=== PATIENT | female | born 1950 | race African-American/Black ===

== ENCOUNTER 2016-07-15 15:46 | Emergency (ER) | payer MEDICARE ==
[~2016-07-15] VITALS: Ht 167.6 cm; Wt 130.0 kg
[~2016-07-15 15:46] MED LIST: ALLO100T PO; AMLO5TAB88 PO; ASPI-1035 PO; CLON0.2T PO; CLOP75TA33 PO; CYCL-374 PO; DICL75TA5 PO; DOCU-150 PO; FAMO20TA8 PO; FERR-63 PO; FURO20TA4 PO; GLIP10TA10 PO; HYDR-4134 PO; HYDR25TA PO; METO-296 PO; MORP15TA67 PO; PANT40TA4 PO; PIOG30TA27 PO; PRAV40TA58 PO
[2016-07-15 19:30] LABS: BASOPHILS % 1.2 % (0.0-2.0); EOSINOPHILS % 3.9 % (0.0-5.0); HEMATOCRIT. 35.8 % (36.0-48.0); HEMOGLOBIN. 11.7 g/dL (12.0-16.0); LYMPHOCYTES % 27.1 % (20.0-50.0); MEAN CORPUSCULAR HEMOGLOBIN 30.2 pg (28.0-32.0); MEAN CORPUSCULAR HGB CONC 32.7 g/dL (31.0-37.0); MEAN CORPUSCULAR VOLUME 92.3 fL (81.0-99.0); MEAN PLATELET VOLUME 9.2 fl (7.4-10.4); MONOCYTES % 5.7 % (2.0-8.0); NEUTROPHILS % 62.1 % (40.0-76.0); PLATELET 231 x1000/uL (130-400); RED BLOOD CELL COUNT 3.88 mill/uL (4.2-5.4); RED CELL DISTRIBUTION WIDTH 15.6 % (11.6-14.6); WHITE BLOOD COUNT 8.4 x1000/uL (4.5-11.0)
[2016-07-15 19:35] LABS: CHLORIDE 103 mEq/L (98-107); INDEX HEMOLYSI 1 (1-3); INDEX ICTERIC 1 (1-4); INDEX LIPEMIC 1 (1-3)
[2016-07-15 19:42] LABS: ALANINE AMINOTRANSFERASE 9 IU/L (13-61); ALBUMIN 3.6 g/dL (3.4-5.0); ANION GAP 12; CALCIUM 9.2 mg/dL (8.5-10.1); CARBON DIOXIDE 31 mEq/L (21-32); UREA NITROGEN BLOOD 14 mg/dL (7-21); URIC ACID 5.3 mg/dL (2.6-7.2)
[2016-07-15 19:44] LABS: eGFR 55 mL/min (>60)
== END 2016-07-15 20:18 | disposition home or self-care (01) ==
LOC: ER 15:47
DX: M25.532 Pain in left wrist (principal); I10 Essential (primary) hypertension; M10.9 Gout, unspecified; E11.9 Type 2 diabetes mellitus without complications; M19.90 Unspecified osteoarthritis, unspecified site; Z90.49 Acquired absence of other specified parts of digestive tract; Z90.710 Acquired absence of both cervix and uterus; Z90.89 Acquired absence of other organs; Z98.890 Other specified postprocedural states; Z79.82 Long term (current) use of aspirin; Z79.899 Other long term (current) drug therapy; Z88.8 Allergy status to other drugs, medicaments and biological substances
CPT/HCPCS: 36415; 73090; 73130; 80053; 84550; 85025; 99285

== ENCOUNTER 2016-10-29 15:17 | Inpatient (IN) | payer MEDICARE, MEDICAID ==
[~2016-10-29] VITALS: Ht 167.6 cm; Wt 127.5 kg
[~2016-10-29 15:17] MED LIST changes: -ASPI-1035 PO; +ASPI-1158 PO; -CYCL-374 PO; +CYCL10TA7 PO
[2016-10-29] MEDS ORDERED: FUROSEMIDE 40MG/4ML VIAL IV ONE (16:00)
[2016-10-29 16:22] LABS: BASOPHILS % 0.6 % (0.0-2.0); EOSINOPHILS % 5.5 % (0.0-5.0); HEMATOCRIT. 32.8 % (36.0-48.0); HEMOGLOBIN. 10.8 g/dL (12.0-16.0); LYMPHOCYTES % 29.5 % (20.0-50.0); MEAN CORPUSCULAR HEMOGLOBIN 30.2 pg (28.0-32.0); MEAN CORPUSCULAR VOLUME 91.7 fL (81.0-99.0); MEAN PLATELET VOLUME 9.7 fl (7.4-10.4); MONOCYTES % 6.4 % (2.0-8.0); PLATELET 209 x1000/uL (130-400); RED BLOOD CELL COUNT 3.58 mill/uL (4.2-5.4); RED CELL DISTRIBUTION WIDTH 15.5 % (11.6-14.6)
[2016-10-29 16:24] LABS: CHLORIDE 104 mEq/L (98-107)
[2016-10-29 16:25] LABS: PROTHROMBIN TIME 10.6 sec
[2016-10-29 16:29] LABS: CARBON DIOXIDE 32 mEq/L (21-32)
[2016-10-29 16:36] LABS: TROPONIN I < 0.02 ng/mL (0.00-0.04)
[2016-10-29] MEDS ORDERED: MORPHINE SULFATE 4 MG/ML CPJ (NOT FOR IM USE) IV ONE (17:45)
[2016-10-29] MEDS ORDERED: DEXTROSE 50% WATER 50ML SYRINGE IV PRN (19:45)
[2016-10-29] MEDS ORDERED: DIPHENHYDRAMINE 50MG/ML VIAL IV PRN (19:45)
[2016-10-29] MEDS ORDERED: IPRATROPIUM/ALBUTEROL 0.5-3(2.5)MG/3ML NEB INH PRN (19:45)
[2016-10-29] MEDS ORDERED: MAGNESIUM/ALUMINUM HYDROXIDE/SIMETHICONE 30ML UDC PO PRN (19:45)
[2016-10-29] MEDS ORDERED: ACETAMINOPHEN 325MG TABLET PO PRN (19:45)
[2016-10-29] MEDS ORDERED: CLONIDINE 0.1MG TABLET PO PRN (19:45)
[2016-10-29] MEDS ORDERED: ONDANSETRON HCL 4MG/2ML VIAL IV PRN (19:45)
[2016-10-29] MEDS ORDERED: GUAIFENESIN 200MG/10ML SUGAR FREE UDC PO PRN (19:45)
[2016-10-29] MEDS: ENOXAPARIN 40MG/0.4ML SYR SUBCUT SCH (21:00)
[2016-10-29] MEDS: BLOOD SUGAR DIAGNOSTIC STRIP TEST SCH (21:43)
[2016-10-29] MEDS: HYDRALAZINE HCL 50MG TABLET PO SCH (21:51)
[2016-10-29] MEDS: SODIUM CHLORIDE 0.9% INJ 3ML FLUSH IVF SCH (21:53)
[2016-10-29] MEDS: INSULIN LISPRO 100 UNITS/ML SUBCUT SCH (21:54)
[2016-10-29 22:00] VITALS: BP 169/86
[2016-10-29] MEDS: DICLOFENAC SODIUM 50MG EC TABLET PO PRN (23:54)
[2016-10-30] VITALS: BP 133/86
[2016-10-30] MEDS ORDERED: REGADENOSON 0.4 MG/5 ML IV NR (02:45)
[2016-10-30 04:00] VITALS: BP 116/62
[2016-10-30] MEDS: HYDRALAZINE HCL 50MG TABLET PO SCH ×3 (05:12→21:23)
[2016-10-30] MEDS: SODIUM CHLORIDE 0.9% INJ 3ML FLUSH IVF SCH ×3 (05:12→21:23)
[2016-10-30] MEDS: BLOOD SUGAR DIAGNOSTIC STRIP TEST SCH ×4 (06:36→21:24)
[2016-10-30] MEDS: INSULIN LISPRO 100 UNITS/ML SUBCUT SCH ×4 (07:50→21:27)
[2016-10-30 08:00] VITALS: BP 149/76
[2016-10-30] MEDS ORDERED: REGADENOSON 0.4 MG/5 ML IV ONE (08:11)
[2016-10-30] MEDS ORDERED: FUROSEMIDE 40MG/4ML VIAL IVP SCH (09:00)
[2016-10-30] MEDS: ENOXAPARIN 40MG/0.4ML SYR SUBCUT SCH (09:00)
[2016-10-30] MEDS: GLIPIZIDE 10MG TABLET PO SCH ×2 (09:29→17:55)
[2016-10-30] MEDS: DOCUSATE SODIUM 250MG CAPSULE PO SCH ×2 (09:30→17:55)
[2016-10-30] MEDS: FERROUS SULFATE 325MG TABLET PO SCH ×3 (09:31→17:55)
[2016-10-30 12:00] VITALS: BP 163/91
[2016-10-30] MEDS ORDERED: IBUPROFEN 600MG TABLET PO PRN (12:00)
[2016-10-30] MEDS: DICLOFENAC SODIUM 50MG EC TABLET PO PRN (12:26)
[2016-10-30 16:00] VITALS: BP 156/88
[2016-10-30 20:00] VITALS: BP 112/67
[2016-10-30] MEDS ORDERED: ENOXAPARIN 30MG/0.3ML SYR SUBCUT SCH (21:00)
[2016-10-30] MEDS ORDERED: ZOLPIDEM TARTRATE 5MG TABLET PO PRN (22:00)
[2016-10-31] VITALS: BP 142/82
[2016-10-31] MEDS: DICLOFENAC SODIUM 50MG EC TABLET PO PRN (03:59)
[2016-10-31 04:00] VITALS: BP 127/76
[2016-10-31] MEDS: HYDRALAZINE HCL 50MG TABLET PO SCH ×2 (06:26→13:23)
[2016-10-31] MEDS: BLOOD SUGAR DIAGNOSTIC STRIP TEST SCH ×2 (06:26→12:23)
[2016-10-31] MEDS: SODIUM CHLORIDE 0.9% INJ 3ML FLUSH IVF SCH (06:27)
[2016-10-31] MEDS: INSULIN LISPRO 100 UNITS/ML SUBCUT SCH ×2 (07:50→12:40)
[2016-10-31 08:00] VITALS: BP 124/93
[2016-10-31] MEDS: GLIPIZIDE 10MG TABLET PO SCH (08:31)
[2016-10-31] MEDS: DOCUSATE SODIUM 250MG CAPSULE PO SCH (08:31)
[2016-10-31] MEDS: FERROUS SULFATE 325MG TABLET PO SCH ×2 (08:31→13:23)
[2016-10-31 12:00] VITALS: BP 115/85
[2016-10-31 12:41] VITALS: BP 154/82
== END 2016-10-31 14:00 | disposition home or self-care (01) | DRG 291 ==
LOC: ER 15:42 → EDBEDREQ 18:47 → 6WST 19:43 → ENRESERV 19:49 → 6WST 20:50
PROVIDERS: ADMIT Internal Medicine; ATTEND Internal Medicine
DX: I11.0 Hypertensive heart disease with heart failure (principal); J96.00 Acute respiratory failure, unspecified whether with hypoxia or hypercapnia; Z68.42 Body mass index [BMI] 45.0-49.9, adult; I50.33 Acute on chronic diastolic (congestive) heart failure; E78.5 Hyperlipidemia, unspecified; E11.9 Type 2 diabetes mellitus without complications; E78.00 Pure hypercholesterolemia, unspecified; E66.01 Morbid (severe) obesity due to excess calories; Z79.02 Long term (current) use of antithrombotics/antiplatelets; Z79.82 Long term (current) use of aspirin; Z79.899 Other long term (current) drug therapy; Z88.8 Allergy status to other drugs, medicaments and biological substances; Z90.49 Acquired absence of other specified parts of digestive tract; Z90.710 Acquired absence of both cervix and uterus; Z72.89 Other problems related to lifestyle; Z86.73 Personal history of transient ischemic attack (TIA), and cerebral infarction without residual deficits; Z82.49 Family history of ischemic heart disease and other diseases of the circulatory system
CPT/HCPCS: 36415; 71010; 78452; 80048; 80053; 82962; 83036; 83880; 84484; 85025; 85610; 93005; 93306; 96374; 96375; 97162; 99285; A9500; J1200; J1650; J1815; J1940; J2270; J2785

== ENCOUNTER 2017-11-19 12:16 | Inpatient (IN) | payer MEDICARE, MEDICAID ==
[~2017-11-19] VITALS: Ht 167.6 cm; Wt 127.0 kg
[~2017-11-19 12:16] MED LIST changes: -DOCU-150 PO; -METO-296 PO; +METO-396 PO
[2017-11-19 13:18] LABS: PROTHROMBIN TIME 10.7 sec (9.4-11.6)
[2017-11-19 13:19] LABS: CHLORIDE 101 mEq/L (98-107)
[2017-11-19 13:20] LABS: BASOPHILS % 0.4 % (0.0-2.0); EOSINOPHILS % 4.2 % (0.0-5.0); HEMATOCRIT. 35.2 % (36.0-48.0); HEMOGLOBIN. 11.8 g/dL (12.0-16.0); LYMPHOCYTES % 33.8 % (20.0-50.0); MEAN CORPUSCULAR HEMOGLOBIN 31.2 pg (28.0-32.0); MEAN CORPUSCULAR VOLUME 93.3 fL (81.0-99.0); MEAN PLATELET VOLUME 9.9 fl (7.4-10.4); MONOCYTES % 5.9 % (2.0-8.0); NEUTROPHILS % 55.7 % (40.0-76.0); PLATELET 234 x1000/uL (130-400); RED BLOOD CELL COUNT 3.78 mill/uL (4.2-5.4); RED CELL DISTRIBUTION WIDTH 15.5 % (11.6-14.6)
[2017-11-19 13:25] LABS: ETHANOL BLOOD 230 mg/dL
[2017-11-19 13:27] LABS: LDL CHOLESTEROL 71 mg/dL (5-100)
[2017-11-19 13:37] LABS: AMMONIA 44 uMol/L (<32)
[2017-11-19 15:49] LABS: HEPATITIS B SURFACE ANTIGEN NEGATIVE
[2017-11-19 16:17] LABS: HEPATITIS B CORE AB IGM NEGATIVE
[2017-11-19 16:19] LABS: HEPATITIS A AB IGM NEGATIVE (NEGATIVE)
[2017-11-19] MEDS ORDERED: GUAIFENESIN 200MG/10ML SUGAR FREE UDC PO PRN (18:00)
[2017-11-19] MEDS ORDERED: ACETAMINOPHEN 325MG TABLET PO PRN (18:00)
[2017-11-19] MEDS ORDERED: MAGNESIUM/ALUMINUM HYDROXIDE/SIMETHICONE 30ML UDC PO PRN (18:00)
[2017-11-19] MEDS ORDERED: HYDROCODONE/ACETAMINOPHEN 5/325MG TABLET PO PRN (18:00)
[2017-11-19] MEDS ORDERED: CLONIDINE 0.1MG TABLET PO PRN (18:00)
[2017-11-19] MEDS ORDERED: NA PHOS,M-B/NA PHOS,DI-BA ENEMA 118ML PR PRN (18:00)
[2017-11-19] MEDS ORDERED: ACETAMINOPHEN 650MG/20.3ML UDC GT PRN (18:00)
[2017-11-19] MEDS ORDERED: ACETAMINOPHEN 650MG SUPP PR PRN (18:00)
[2017-11-19] MEDS ORDERED: DOCUSATE SODIUM 100MG CAPSULE PO PRN (18:00)
[2017-11-19] MEDS ORDERED: DIPHENHYDRAMINE 50MG/ML VIAL IV PRN (18:00)
[2017-11-19] MEDS ORDERED: IPRATROPIUM/ALBUTEROL 0.5-3(2.5)MG/3ML NEB INH PRN (18:00)
[2017-11-19] MEDS: HYDROCODONE/ACETAMINOPHEN 10/325MG TABLET PO PRN (19:11)
[2017-11-19 19:13] LABS: CLARITY URINE CLOUDY (CLEAR); COLOR URINE YELLOW (YELLOW); KETONES URINE NEGATIVE (NEGATIVE); LEUKOCYTE ESTERASE URINE TRACE (NEGATIVE); NITRITE URINE NEGATIVE (NEGATIVE); OCCULT BLOOD URINE NEGATIVE (NEGATIVE); PH URINE 5.5 (4.5-8.0); PROTEIN URINE 2+ (NEGATIVE); SPECIFIC GRAVITY URINE 1.011 (1.005-1.030); UROBILINOGEN URINE 0.2 E.U./dL (0.2-1.0)
[2017-11-19 19:31] LABS: *AMPHETAMINES SCREEN URINE NEGATIVE (NEGATIVE); *BARBITURATES SCREEN URINE NEGATIVE (NEGATIVE)
[2017-11-19 19:32] LABS: *BENZODIAZEPINES SCREEN URINE NEGATIVE (NEGATIVE); *COCAINE SCREEN URINE NEGATIVE (NEGATIVE); CANNABINOID URINE SCREEN NEGATIVE (NEGATIVE); METHADONE URINE SCREEN NEGATIVE (NEGATIVE); OPIATES URINE SCREEN NEGATIVE (NEGATIVE); PHENCYCLIDINE URINE SCREEN NEGATIVE (NEGATIVE)
[2017-11-19 20:50] VITALS: BP 149/76
[2017-11-19] MEDS: SODIUM CHLORIDE 0.9% INJ 3ML FLUSH IVF SCH (22:00)
[2017-11-19 23:00] VITALS: BP 149/76
[2017-11-20] MEDS: IPRATROPIUM/ALBUTEROL 0.5-3(2.5)MG/3ML NEB INH SCH ×4 (00:43→22:10)
[2017-11-20] MEDS: HYDROCODONE/ACETAMINOPHEN 10/325MG TABLET PO PRN ×2 (00:48→22:36)
[2017-11-20] MEDS ORDERED: CEFTRIAXONE 1 G PREMIX 50 ML IV SCH (01:00)
[2017-11-20 01:30] LABS: CREATINE KINASE 99 IU/L (26-192)
[2017-11-20 01:31] LABS: CREATINE KINASE MB FRACTION 0.8 ng/mL (0.5-3.6)
[2017-11-20] MEDS ORDERED: AZITHROMYCIN 500 MG in DEXT 5% WATER 250 ML IV SCH (02:00)
[2017-11-20 04:15] VITALS: BP 157/78
[2017-11-20] MEDS: ONDANSETRON HCL 4MG/2ML VIAL IV PRN (05:07)
[2017-11-20 05:53] LABS: BASOPHILS % 0.5 % (0.0-2.0); EOSINOPHILS % 3.8 % (0.0-5.0); LYMPHOCYTES % 38.8 % (20.0-50.0); MEAN CORPUSCULAR VOLUME 93.2 fL (81.0-99.0); MEAN PLATELET VOLUME 10.2 fl (7.4-10.4); MONOCYTES % 7.8 % (2.0-8.0); NEUTROPHILS % 49.1 % (40.0-76.0); PLATELET 217 x1000/uL (130-400); RED BLOOD CELL COUNT 3.54 mill/uL (4.2-5.4); RED CELL DISTRIBUTION WIDTH 15.4 % (11.6-14.6)
[2017-11-20] MEDS ORDERED: DEXTROSE 50% WATER 50ML SYRINGE IV PRN (06:15)
[2017-11-20] MEDS: BLOOD SUGAR DIAGNOSTIC STRIP TEST SCH ×4 (06:36→20:11)
[2017-11-20] MEDS: SODIUM CHLORIDE 0.9% INJ 3ML FLUSH IVF SCH ×3 (06:36→22:00)
[2017-11-20 06:42] LABS: CHLORIDE 102 mEq/L (98-107)
[2017-11-20 07:29] LABS: LDL CHOLESTEROL 57 mg/dL (5-100)
[2017-11-20 07:30] LABS: CREATINE KINASE 96 IU/L (26-192)
[2017-11-20 07:32] LABS: HDL CHOLESTEROL 32 mg/dL (40-59)
[2017-11-20 07:36] LABS: CREATINE KINASE MB FRACTION < 0.5 ng/mL (0.5-3.6)
[2017-11-20 08:00] VITALS: BP 156/71
[2017-11-20] MEDS: INSULIN LISPRO 100 UNITS/ML SUBCUT SCH ×4 (08:10→20:12)
[2017-11-20] MEDS: ENOXAPARIN 40MG/0.4ML SYR SUBCUT SCH ×2 (09:00→20:13)
[2017-11-20] MEDS ORDERED: DIATR MEGLU/DIATRIZOATE SOLN 30ML ONE (09:02)
[2017-11-20] MEDS ORDERED: FAMOTIDINE 20MG/2ML VIAL IV ONE (11:00)
[2017-11-20 12:00] VITALS: BP 161/68
[2017-11-20] MEDS ORDERED: POTASSIUM CHLORIDE 20MEQ TABLET SR PO NR (13:00)
[2017-11-20] MEDS: FAMOTIDINE 20MG/2ML VIAL IV SCH (13:44)
[2017-11-20] MEDS: METOCLOPRAMIDE HCL 10MG/2ML VIAL IV SCH ×3 (13:44→23:57)
[2017-11-20 16:00] VITALS: BP 149/67
[2017-11-20] MEDS: FUROSEMIDE 40MG/4ML VIAL IVP SCH (18:01)
[2017-11-20 20:09] VITALS: BP 153/53
[2017-11-20] MEDS: GUAIFENESIN 600MG ER TABLET PO SCH (20:11)
[2017-11-20 23:59] VITALS: BP 158/49
[2017-11-21] MEDS ORDERED: CEFTRIAXONE 1 G PREMIX 50 ML IV SCH (02:00)
[2017-11-21] MEDS: IPRATROPIUM/ALBUTEROL 0.5-3(2.5)MG/3ML NEB INH SCH ×3 (02:40→14:47)
[2017-11-21] MEDS ORDERED: AZITHROMYCIN 500 MG in DEXT 5% WATER 250 ML IV SCH (03:00)
[2017-11-21 04:00] VITALS: BP 123/54
[2017-11-21] MEDS: SODIUM CHLORIDE 0.9% INJ 3ML FLUSH IVF SCH (06:00)
[2017-11-21] MEDS: METOCLOPRAMIDE HCL 10MG/2ML VIAL IV SCH ×2 (06:08→12:05)
[2017-11-21 06:55] LABS: BASOPHILS % 0.6 % (0.0-2.0); EOSINOPHILS % 2.8 % (0.0-5.0); HEMATOCRIT. 35.8 % (36.0-48.0); HEMOGLOBIN. 11.5 g/dL (12.0-16.0); LYMPHOCYTES % 27.5 % (20.0-50.0); MEAN CORPUSCULAR HEMOGLOBIN 30.4 pg (28.0-32.0); MEAN CORPUSCULAR VOLUME 94.5 fL (81.0-99.0); MEAN PLATELET VOLUME 10.1 fl (7.4-10.4); MONOCYTES % 8.1 % (2.0-8.0); PLATELET 209 x1000/uL (130-400); RED BLOOD CELL COUNT 3.79 mill/uL (4.2-5.4); RED CELL DISTRIBUTION WIDTH 15.3 % (11.6-14.6)
[2017-11-21] MEDS: BLOOD SUGAR DIAGNOSTIC STRIP TEST SCH ×2 (07:46→12:05)
[2017-11-21] MEDS: FAMOTIDINE 20MG/2ML VIAL IV SCH (07:48)
[2017-11-21] MEDS: FUROSEMIDE 40MG/4ML VIAL IVP SCH (07:48)
[2017-11-21] MEDS: INSULIN LISPRO 100 UNITS/ML SUBCUT SCH ×2 (07:48→12:08)
[2017-11-21] MEDS: GUAIFENESIN 600MG ER TABLET PO SCH (07:49)
[2017-11-21] MEDS: ENOXAPARIN 40MG/0.4ML SYR SUBCUT SCH (07:49)
[2017-11-21 08:00] VITALS: BP 157/54
[2017-11-21] MEDS: HYDROCODONE/ACETAMINOPHEN 10/325MG TABLET PO PRN (10:34)
[2017-11-21 12:00] VITALS: BP 157/51
[2017-11-21] MEDS ORDERED: POTASSIUM CHLORIDE 20MEQ TABLET SR PO NR (14:00)
[2017-11-21] MEDS: ONDANSETRON HCL 4MG/2ML VIAL IV PRN (14:37)
[2017-11-21 15:16] VITALS: BP 157/51
[2017-11-22] MEDS ORDERED: CITA10SO PO (11:02)
[2017-11-22] MEDS ORDERED: DOCU250C69 PO (11:02)
[2017-11-22] MEDS ORDERED: ATOR40TA70 MT (11:02)
[2017-11-22] MEDS ORDERED: GLIP10TA10 MT (11:02)
[2017-11-22] MEDS ORDERED: PANT40TA4 PO (12:28)
== END 2017-11-21 16:35 | disposition home or self-care (01) | DRG 291 ==
LOC: ER 12:16 → 7WST 16:43 → ENRESERV 21:00
PROVIDERS: ADMIT Family Medicine; ATTEND Family Medicine
DX: I11.0 Hypertensive heart disease with heart failure (principal); J18.1 Lobar pneumonia, unspecified organism; G92 Toxic encephalopathy; J96.00 Acute respiratory failure, unspecified whether with hypoxia or hypercapnia; N17.0 Acute kidney failure with tubular necrosis; Z68.42 Body mass index [BMI] 45.0-49.9, adult; D63.8 Anemia in other chronic diseases classified elsewhere; E66.01 Morbid (severe) obesity due to excess calories; E78.00 Pure hypercholesterolemia, unspecified; E78.1 Pure hyperglyceridemia; E78.5 Hyperlipidemia, unspecified; E86.0 Dehydration; E87.6 Hypokalemia; F10.129 Alcohol abuse with intoxication, unspecified; I50.43 Acute on chronic combined systolic (congestive) and diastolic (congestive) heart failure; G31.2 Degeneration of nervous system due to alcohol; I48.91 Unspecified atrial fibrillation; M10.9 Gout, unspecified; E11.65 Type 2 diabetes mellitus with hyperglycemia; M19.90 Unspecified osteoarthritis, unspecified site; Z80.0 Family history of malignant neoplasm of digestive organs; Z86.73 Personal history of transient ischemic attack (TIA), and cerebral infarction without residual deficits; Z79.899 Other long term (current) drug therapy; Z90.49 Acquired absence of other specified parts of digestive tract; Z90.710 Acquired absence of both cervix and uterus; Z79.01 Long term (current) use of anticoagulants; Z88.8 Allergy status to other drugs, medicaments and biological substances
CPT/HCPCS: 36415; 70450; 71045; 74176; 80048; 80053; 80061; 80305; 81003; 82140; 82550; 82553; 82962; 83036; 83605; 83721; 83735; 84484; 85025; 85610; 86705; 86709; 86803; 87040; 87086; 87340; 93005; 97162; 99285; G0482; J0456; J0696; J1650; J1815; J1940; J2405; J2765; J3490; J7050; J7060; J7620; Q9963

== ENCOUNTER 2017-11-21 19:41 | Inpatient (IN) | payer MEDICARE, MEDICAID ==
[~2017-11-21] VITALS: Ht 170.2 cm; Wt 134.3 kg
[~2017-11-21 19:41] MED LIST changes: -ASPI-1158 PO; -FAMO20TA8 PO
[2017-11-21] MEDS ORDERED: DILTIAZEM HCL 5MG/ML 5ML VIAL IV ONE ×2 (21:15→23:15)
[2017-11-21] MEDS ORDERED: SODIUM CHLORIDE 0.9% 1,000 ML IV ONE (22:00)
[2017-11-21 22:03] LABS: BASOPHILS % 0.7 % (0.0-2.0); HEMATOCRIT. 35.7 % (36.0-48.0); HEMOGLOBIN. 11.8 g/dL (12.0-16.0); LYMPHOCYTES % 17.2 % (20.0-50.0); MEAN CORPUSCULAR HEMOGLOBIN 30.8 pg (28.0-32.0); MEAN CORPUSCULAR VOLUME 93.4 fL (81.0-99.0); MEAN PLATELET VOLUME 10.1 fl (7.4-10.4); MONOCYTES % 8.9 % (2.0-8.0); NEUTROPHILS % 72.2 % (40.0-76.0); PLATELET 230 x1000/uL (130-400); RED BLOOD CELL COUNT 3.83 mill/uL (4.2-5.4); RED CELL DISTRIBUTION WIDTH 15.3 % (11.6-14.6)
[2017-11-21 22:10] LABS: CHLORIDE 98 mEq/L (98-107)
[2017-11-21 22:12] LABS: INR 1.1; PROTHROMBIN TIME 11.3 sec (9.4-11.6)
[2017-11-21] MEDS ORDERED: AZITHROMYCIN 500 MG in DEXT 5% WATER 250 ML IV ONE (23:15)
[2017-11-21] MEDS ORDERED: CEFTRIAXONE 1 G PREMIX 50 ML IV ONE (23:15)
[2017-11-21] MEDS ORDERED: DILTIAZEM HCL 125 MG in DEXT 5% WATER 100 ML IV ONE (23:15)
[2017-11-21] MEDS ORDERED: DILTIAZEM HCL 125 MG in DEXT 5% WATER 100 ML IV NR (23:19)
[2017-11-22] VITALS (9 sets, daily range): BP systolic 134–190; BP diastolic 51–97
[2017-11-22 01:48] LABS: CLARITY URINE CLEAR (CLEAR); COLOR URINE DARK YELLOW (YELLOW); KETONES URINE TRACE (NEGATIVE); LEUKOCYTE ESTERASE URINE TRACE (NEGATIVE); NITRITE URINE NEGATIVE (NEGATIVE); OCCULT BLOOD URINE TRACE (NEGATIVE); PH URINE 5.5 (4.5-8.0); PROTEIN URINE 4+ (NEGATIVE); SPECIFIC GRAVITY URINE 1.025 (1.005-1.030); UROBILINOGEN URINE 0.2 E.U./dL (0.2-1.0)
[2017-11-22] MEDS ORDERED: DEXTROSE 50% WATER 50ML SYRINGE IV PRN (10:45)
[2017-11-22] MEDS ORDERED: CLONIDINE 0.1MG TABLET PO PRN (10:45)
[2017-11-22] MEDS ORDERED: GLIP10TA10 MT (11:02)
[2017-11-22] MEDS ORDERED: CITA10SO PO (11:02)
[2017-11-22] MEDS ORDERED: DOCU250C69 PO (11:02)
[2017-11-22] MEDS ORDERED: ATOR40TA70 MT (11:02)
[2017-11-22] MEDS: CLOPIDOGREL 75MG TABLET PO SCH (12:16)
[2017-11-22] MEDS: FUROSEMIDE 40MG TABLET PO SCH (12:16)
[2017-11-22] MEDS: APIXABAN 5 MG TABLET PO SCH ×2 (12:17→16:33)
[2017-11-22] MEDS: BLOOD SUGAR DIAGNOSTIC STRIP TEST SCH ×3 (12:18→21:22)
[2017-11-22] MEDS: FERROUS SULFATE 325MG TABLET PO SCH ×2 (12:19→16:33)
[2017-11-22] MEDS: AMLODIPINE 10MG TABLET PO SCH (12:23)
[2017-11-22] MEDS: INSULIN LISPRO 100 UNITS/ML SUBCUT SCH ×4 (12:23→21:22)
[2017-11-22] MEDS ORDERED: PANT40TA4 PO (12:28)
[2017-11-22] MEDS: HYDRALAZINE HCL 50MG TABLET PO SCH ×2 (16:33→21:23)
[2017-11-22] MEDS: ALLOPURINOL 100 MG TABLET PO SCH (16:33)
[2017-11-22 17:48] LABS: T4 FREE 1.15 ng/dL (0.76-1.46)
[2017-11-22 17:49] LABS: CREATINE KINASE MB FRACTION 1.2 ng/mL (0.5-3.6)
[2017-11-22] MEDS: DICLOFENAC SODIUM 50MG EC TABLET PO PRN (18:06)
[2017-11-22] MEDS: CLONIDINE 0.2MG TABLET PO PRN (18:07)
[2017-11-22] MEDS: ATORVASTATIN CALCIUM 40MG TABLET PO SCH (21:23)
[2017-11-22] MEDS: METOPROLOL TARTRATE 50MG TABLET PO SCH (21:23)
[2017-11-23] VITALS (11 sets, daily range): BP systolic 120–168; BP diastolic 63–92
[2017-11-23] MEDS: HYDRALAZINE HCL 50MG TABLET PO SCH ×3 (05:37→21:50)
[2017-11-23 06:57] LABS: BASOPHILS % 0.7 % (0.0-2.0); EOSINOPHILS % 7.9 % (0.0-5.0); HEMATOCRIT. 32.2 % (36.0-48.0); HEMOGLOBIN. 10.8 g/dL (12.0-16.0); LYMPHOCYTES % 31.4 % (20.0-50.0); MEAN CORPUSCULAR HEMOGLOBIN 31.5 pg (28.0-32.0); MEAN PLATELET VOLUME 10.2 fl (7.4-10.4); MONOCYTES % 9.3 % (2.0-8.0); NEUTROPHILS % 50.7 % (40.0-76.0); PLATELET 201 x1000/uL (130-400); RED BLOOD CELL COUNT 3.43 mill/uL (4.2-5.4)
[2017-11-23] MEDS: BLOOD SUGAR DIAGNOSTIC STRIP TEST SCH ×4 (07:35→21:13)
[2017-11-23 08:00] LABS: CHLORIDE 100 mEq/L (98-107)
[2017-11-23] MEDS: METOPROLOL TARTRATE 50MG TABLET PO SCH ×2 (08:01→21:48)
[2017-11-23] MEDS: APIXABAN 5 MG TABLET PO SCH ×2 (08:01→16:28)
[2017-11-23] MEDS: CLOPIDOGREL 75MG TABLET PO SCH (08:01)
[2017-11-23] MEDS: ALLOPURINOL 100 MG TABLET PO SCH ×2 (08:01→16:28)
[2017-11-23] MEDS: FUROSEMIDE 40MG TABLET PO SCH (08:01)
[2017-11-23] MEDS: PANTOPRAZOLE 40MG DR TABLET PO SCH (08:01)
[2017-11-23] MEDS: FERROUS SULFATE 325MG TABLET PO SCH ×3 (08:02→17:43)
[2017-11-23] MEDS: AMLODIPINE 10MG TABLET PO SCH (08:02)
[2017-11-23] MEDS: INSULIN LISPRO 100 UNITS/ML SUBCUT SCH ×4 (08:04→21:56)
[2017-11-23 08:14] LABS: CREATINE KINASE 210 IU/L (26-192)
[2017-11-23] MEDS ORDERED: AMLODIPINE 10MG TABLET PO SCH (09:00)
[2017-11-23] MEDS: DICLOFENAC SODIUM 50MG EC TABLET PO PRN (11:38)
[2017-11-23] MEDS: BENZONATATE 100MG CAPSULE PO PRN (11:38)
[2017-11-23] MEDS: INSULIN GLARGINE UD 100 UNITS/ML SYR SUBCUT SCH (11:39)
[2017-11-23] MEDS: CLONIDINE 0.2MG TABLET PO PRN (17:43)
[2017-11-23] MEDS: ATORVASTATIN CALCIUM 40MG TABLET PO SCH (21:48)
[2017-11-24] VITALS (12 sets, daily range): BP systolic 116–179; BP diastolic 50–99
[2017-11-24] MEDS: DICLOFENAC SODIUM 50MG EC TABLET PO PRN (06:41)
[2017-11-24] MEDS: HYDRALAZINE HCL 50MG TABLET PO SCH ×3 (06:42→21:04)
[2017-11-24] MEDS: BLOOD SUGAR DIAGNOSTIC STRIP TEST SCH ×4 (07:35→21:00)
[2017-11-24] MEDS: APIXABAN 5 MG TABLET PO SCH ×2 (08:12→17:35)
[2017-11-24] MEDS: AMLODIPINE 10MG TABLET PO SCH (08:13)
[2017-11-24] MEDS: PANTOPRAZOLE 40MG DR TABLET PO SCH (08:13)
[2017-11-24] MEDS: FUROSEMIDE 40MG TABLET PO SCH (08:13)
[2017-11-24] MEDS: CLOPIDOGREL 75MG TABLET PO SCH (08:13)
[2017-11-24] MEDS: FERROUS SULFATE 325MG TABLET PO SCH ×3 (08:13→17:35)
[2017-11-24] MEDS: ALLOPURINOL 100 MG TABLET PO SCH ×2 (08:13→17:35)
[2017-11-24] MEDS: METOPROLOL TARTRATE 50MG TABLET PO SCH ×2 (08:13→20:37)
[2017-11-24] MEDS: INSULIN LISPRO 100 UNITS/ML SUBCUT SCH ×4 (08:14→21:03)
[2017-11-24] MEDS: INSULIN GLARGINE UD 100 UNITS/ML SYR SUBCUT SCH (09:40)
[2017-11-24] MEDS ORDERED: APIX5TAB PO (11:10)
[2017-11-24] MEDS: CLONIDINE 0.2MG TABLET PO PRN (11:13)
[2017-11-24] MEDS: BENZONATATE 100MG CAPSULE PO PRN (11:13)
[2017-11-24 13:11] LABS: HEMATOCRIT 36.7 % (36.0-48.0); HEMOGLOBIN 11.8 g/dL (12.0-16.0); MEAN CORPUSCULAR HEMOGLOBIN 30.7 pg (28.0-32.0); MEAN CORPUSCULAR VOLUME 95.1 fL (81.0-99.0); PLATELET 247 x1000/uL (130-400); RED BLOOD CELL COUNT 3.86 mill/uL (4.2-5.4); RED CELL DISTRIBUTION WIDTH 15.1 % (11.6-14.6)
[2017-11-24] MEDS: ATORVASTATIN CALCIUM 40MG TABLET PO SCH (20:37)
[2017-11-25] VITALS (16 sets, daily range): BP systolic 136–187; BP diastolic 61–125
[2017-11-25] MEDS: BENZONATATE 100MG CAPSULE PO PRN (05:23)
[2017-11-25] MEDS: HYDRALAZINE HCL 50MG TABLET PO SCH ×2 (05:23→15:28)
[2017-11-25] MEDS: BLOOD SUGAR DIAGNOSTIC STRIP TEST SCH ×2 (07:30→12:30)
[2017-11-25] MEDS: INSULIN LISPRO 100 UNITS/ML SUBCUT SCH ×2 (08:00→12:30)
[2017-11-25] MEDS: ALLOPURINOL 100 MG TABLET PO SCH (10:52)
[2017-11-25] MEDS: AMLODIPINE 10MG TABLET PO SCH (10:53)
[2017-11-25] MEDS: APIXABAN 5 MG TABLET PO SCH (10:53)
[2017-11-25] MEDS: METOPROLOL TARTRATE 50MG TABLET PO SCH (10:53)
[2017-11-25] MEDS: FUROSEMIDE 40MG TABLET PO SCH (10:53)
[2017-11-25] MEDS: FERROUS SULFATE 325MG TABLET PO SCH ×2 (10:53→13:17)
[2017-11-25] MEDS: INSULIN GLARGINE UD 100 UNITS/ML SYR SUBCUT SCH (11:00)
[2017-11-25] MEDS: PANTOPRAZOLE 40MG DR TABLET PO SCH (11:02)
[2017-11-25] MEDS: CLONIDINE 0.2MG TABLET PO PRN (13:17)
[2017-11-26] MEDS ORDERED: FAMOTIDINE 20MG TABLET PO SCH (09:00)
== END 2017-11-25 15:10 | disposition home health service (06) | DRG 682 ==
LOC: ER 19:41 → 5EST 23:14 → EDBEDREQ 23:16 → EDBEDREQTM 23:16 → ENRESERV 11-22 07:01
PROVIDERS: ADMIT Internal Medicine; ATTEND Internal Medicine
DX: N17.0 Acute kidney failure with tubular necrosis (principal); J18.9 Pneumonia, unspecified organism; I50.33 Acute on chronic diastolic (congestive) heart failure; Z68.42 Body mass index [BMI] 45.0-49.9, adult; I69.354 Hemiplegia and hemiparesis following cerebral infarction affecting left non-dominant side; I48.92 Unspecified atrial flutter; I11.0 Hypertensive heart disease with heart failure; E78.5 Hyperlipidemia, unspecified; E66.01 Morbid (severe) obesity due to excess calories; E11.9 Type 2 diabetes mellitus without complications; M10.9 Gout, unspecified; E78.00 Pure hypercholesterolemia, unspecified; I48.91 Unspecified atrial fibrillation; J40 Bronchitis, not specified as acute or chronic; Z90.710 Acquired absence of both cervix and uterus; Z88.8 Allergy status to other drugs, medicaments and biological substances; Z79.899 Other long term (current) drug therapy; Z90.49 Acquired absence of other specified parts of digestive tract; Z79.02 Long term (current) use of antithrombotics/antiplatelets
CPT/HCPCS: 36415; 71045; 78582; 80048; 80053; 80061; 81003; 82550; 82553; 82962; 83036; 83605; 83880; 84145; 84439; 84443; 84484; 85025; 85027; 85379; 85610; 87040; 93005; 93306; 93970; 96365; 96368; 96375; 96376; 97162; 99291; A9558; J0456; J0696; J1815; J3490; J7030; J7060

== ENCOUNTER 2019-02-03 11:18 | Emergency (ER) | payer MEDICARE, MEDICAID ==
[~2019-02-03] VITALS: Ht 170.2 cm; Wt 127.0 kg
[~2019-02-03 11:18] MED LIST changes: +AMLO10TA80 PO; -AMLO5TAB88 PO; +APIX5TAB PO; +ATOR40TA70 MT; +CLON0.1T PO; -CLON0.2T PO; -CLOP75TA33 PO; -CYCL10TA7 PO; +DICL50TA9 PO; -DICL75TA5 PO; +DOCU250C69 PO; -FURO20TA4 PO; +GLIP10TA10 MT; -GLIP10TA10 PO; -HYDR25TA PO; +METO-385 PO; -METO-396 PO; -MORP15TA67 PO; -PIOG30TA27 PO; -PRAV40TA58 PO
[2019-02-03] MEDS ORDERED: COLCHICINE 0.6MG TABLET PO ONE (12:45)
[2019-02-03 12:48] LABS: BASOPHILS % 0.5 % (0.0-2.0); EOSINOPHILS % 3.1 % (0.0-5.0); HEMATOCRIT. 32.9 % (36.0-48.0); HEMOGLOBIN. 10.8 g/dL (12.0-16.0); LYMPHOCYTES % 19.4 % (20.0-50.0); MEAN CORPUSCULAR HEMOGLOBIN 30.2 pg (28.0-32.0); MEAN CORPUSCULAR VOLUME 92.1 fL (81.0-99.0); MONOCYTES % 6.7 % (2.0-8.0); NEUTROPHILS % 70.3 % (40.0-76.0); PLATELET 229 x1000/uL (130-400); RED BLOOD CELL COUNT 3.57 mill/uL (4.2-5.4); RED CELL DISTRIBUTION WIDTH 15.9 % (11.6-14.6)
[2019-02-03 12:55] LABS: CHLORIDE 99 mEq/L (98-107)
[2019-02-03 12:56] LABS: PROTHROMBIN TIME 10.5 sec (9.6-11.0)
[2019-02-03] MEDS ORDERED: HYDROCODONE/ACETAMINOPHEN 5/325MG TABLET PO ONE (13:45)
[2019-02-03 14:15] VITALS: BP 150/64
== END 2019-02-03 14:30 | disposition home or self-care (01) ==
LOC: ER 11:18
DX: M10.9 Gout, unspecified (principal); M79.675 Pain in left toe(s); I11.0 Hypertensive heart disease with heart failure; I50.9 Heart failure, unspecified; E11.9 Type 2 diabetes mellitus without complications; Z90.49 Acquired absence of other specified parts of digestive tract; Z90.710 Acquired absence of both cervix and uterus; Z79.899 Other long term (current) drug therapy; Z88.5 Allergy status to narcotic agent; Z88.1 Allergy status to other antibiotic agents
CPT/HCPCS: 36415; 73660; 99284

== ENCOUNTER 2020-02-19 11:18 | Inpatient (IN) | payer MEDICARE, MEDICAID ==
[~2020-02-19] VITALS: Ht 170.2 cm; Wt 110.7 kg
[~2020-02-19 11:18] MED LIST changes: -AMLO10TA80 PO; -CLON0.1T PO
[2020-02-19] MEDS ORDERED: ASPIRIN 81MG TABLET PO ONE (12:00)
[2020-02-19] MEDS ORDERED: FUROSEMIDE 40MG/4ML VIAL IVP ONE (12:15)
[2020-02-19 13:05] LABS: BASOPHILS % 1.1 % (0.0-2.0); EOSINOPHILS % 3.4 % (0.0-5.0); HEMATOCRIT. 29.8 % (36.0-48.0); HEMOGLOBIN. 9.8 g/dL (12.0-16.0); LYMPHOCYTES % 31.7 % (20.0-50.0); MEAN CORPUSCULAR HEMOGLOBIN 30.5 pg (28.0-32.0); MEAN CORPUSCULAR VOLUME 93.3 fL (81.0-99.0); MONOCYTES % 5.8 % (2.0-8.0); PLATELET 191 x1000/uL (130-400); RED CELL DISTRIBUTION WIDTH 16.6 % (11.6-14.6)
[2020-02-19 13:14] LABS: CHLORIDE 106 mEq/L (98-107)
[2020-02-19] MEDS ORDERED: ONDANSETRON HCL 4MG/2ML INJ IV ONE (13:45)
[2020-02-19] MEDS ORDERED: MORPHINE SULFATE 4 MG/ML CPJ (NOT FOR IM USE) IV ONE (13:45)
[2020-02-19] MEDS ORDERED: GUAIFENESIN 200MG/10ML SUGAR FREE UDC PO PRN (16:00)
[2020-02-19] MEDS ORDERED: MAGNESIUM/ALUMINUM HYDROXIDE/SIMETHICONE 30ML UDC PO PRN (16:00)
[2020-02-19] MEDS ORDERED: CLONIDINE 0.1MG TABLET PO PRN (16:00)
[2020-02-19 17:00] VITALS: BP 121/61
[2020-02-19] MEDS ORDERED: INFLUENZA VACCINE 05/PF 0.5 ML VIAL IM ONE (18:00)
[2020-02-19 18:23] VITALS: BP 121/61
[2020-02-19] MEDS: APIXABAN 5 MG TABLET PO SCH (18:57)
[2020-02-19] MEDS: ACETAMINOPHEN 325MG TABLET PO PRN (18:58)
[2020-02-19 20:00] VITALS: BP 112/63
[2020-02-19] MEDS ORDERED: APIX5TAB PO (20:00)
[2020-02-19] MEDS ORDERED: AMLO10TA80 PO (20:04)
[2020-02-19] MEDS ORDERED: SPIR25TA6 PO (20:04)
[2020-02-19] MEDS ORDERED: ACET-2708 PO (20:04)
[2020-02-19] MEDS ORDERED: FURO40TA5 PO (20:04)
[2020-02-19] MEDS ORDERED: VALS160T28 PO (20:04)
[2020-02-19] MEDS ORDERED: HYDR-4135 PO (20:04)
[2020-02-19] MEDS ORDERED: EMPA10TA PO (20:04)
[2020-02-19] MEDS ORDERED: DOXA4TAB3 PO (20:04)
[2020-02-19] MEDS ORDERED: CLON0.3T PO (20:04)
[2020-02-19] MEDS ORDERED: DEXTROSE 50% WATER 50ML SYRINGE IV PRN (20:15)
[2020-02-19] MEDS: BLOOD SUGAR DIAGNOSTIC STRIP TEST SCH (21:14)
[2020-02-19] MEDS: INSULIN LISPRO 100 UNITS/ML SUBCUT SCH (21:26)
[2020-02-20] VITALS: BP 100/59
[2020-02-20 00:08] LABS: CREATINE KINASE 95 IU/L (26-192)
[2020-02-20] MEDS: HYDROCODONE/ACETAMINOPHEN 5/325MG TABLET PO PRN (01:15)
[2020-02-20 04:00] VITALS: BP 123/57
[2020-02-20] MEDS: INSULIN LISPRO 100 UNITS/ML SUBCUT SCH ×4 (06:07→21:00)
[2020-02-20] MEDS: BLOOD SUGAR DIAGNOSTIC STRIP TEST SCH ×4 (06:07→21:35)
[2020-02-20] MEDS: MORPHINE SULFATE 2 MG/ML CPJ (NOT FOR IM USE) IV PRN ×3 (06:14→16:36)
[2020-02-20 08:33] LABS: BASOPHILS % 0.7 % (0.0-2.0); EOSINOPHILS % 5.7 % (0.0-5.0); HEMATOCRIT. 29.4 % (36.0-48.0); HEMOGLOBIN. 9.6 g/dL (12.0-16.0); LYMPHOCYTES % 38.7 % (20.0-50.0); MEAN CORPUSCULAR HEMOGLOBIN 30.5 pg (28.0-32.0); MEAN CORPUSCULAR VOLUME 93.5 fL (81.0-99.0); MEAN PLATELET VOLUME 10.7 fl (7.4-10.4); MONOCYTES % 7.6 % (2.0-8.0); NEUTROPHILS % 47.3 % (40.0-76.0); PLATELET 187 x1000/uL (130-400); RED BLOOD CELL COUNT 3.15 mill/uL (4.2-5.4); RED CELL DISTRIBUTION WIDTH 16.9 % (11.6-14.6)
[2020-02-20 08:50] LABS: CHLORIDE 105 mEq/L (98-107)
[2020-02-20 09:00] LABS: CREATINE KINASE 100 IU/L (26-192); HDL CHOLESTEROL 39 mg/dL (40-59)
[2020-02-20 09:03] LABS: LDL CHOLESTEROL 45 mg/dL (5-100)
[2020-02-20] MEDS: AMLODIPINE 10MG TABLET PO SCH (09:45)
[2020-02-20] MEDS: FUROSEMIDE 40MG/4ML VIAL IV SCH (09:45)
[2020-02-20] MEDS: DOCUSATE SODIUM 100MG CAPSULE PO PRN ×2 (09:45→16:33)
[2020-02-20] MEDS: APIXABAN 5 MG TABLET PO SCH ×2 (09:45→16:34)
[2020-02-20] MEDS ORDERED: ACETAMINOPHEN 500MG TABLET PO PRN (10:30)
[2020-02-20] MEDS: ONDANSETRON HCL 4MG/2ML INJ IV PRN (10:45)
[2020-02-20] MEDS: SPIRONOLACTONE 25MG TABLET PO SCH (11:26)
[2020-02-20] MEDS: DOXAZOSIN MESYLATE 4MG TABLET PO SCH ×2 (11:27→21:45)
[2020-02-20] MEDS: PANTOPRAZOLE 40MG DR TABLET PO SCH (11:27)
[2020-02-20] MEDS: HYDRALAZINE HCL 50MG TABLET PO SCH ×2 (11:27→21:44)
[2020-02-20] MEDS: ALLOPURINOL 100 MG TABLET PO SCH ×2 (11:28→16:34)
[2020-02-20] MEDS: CLONIDINE 0.3MG TABLET PO SCH ×2 (11:31→21:44)
[2020-02-20] MEDS: METOPROLOL TARTRATE 50MG TABLET PO SCH ×2 (11:34→21:44)
[2020-02-20 12:00] VITALS: BP 126/50
[2020-02-20] MEDS: FERROUS SULFATE 325MG TABLET PO SCH ×2 (12:10→16:33)
[2020-02-20 16:00] VITALS: BP 125/58
[2020-02-20 20:00] VITALS: BP 124/77
[2020-02-21] VITALS: BP_SYST 113; BP_SYST 124; BP_DIAS 49; BP_DIAS 77
[2020-02-21 04:00] VITALS: BP 137/56
[2020-02-21] MEDS: HYDROCODONE/ACETAMINOPHEN 5/325MG TABLET PO PRN (04:14)
[2020-02-21] MEDS: BLOOD SUGAR DIAGNOSTIC STRIP TEST SCH ×4 (06:17→21:08)
[2020-02-21] MEDS: INSULIN LISPRO 100 UNITS/ML SUBCUT SCH ×4 (06:18→21:00)
[2020-02-21] MEDS: HYDRALAZINE HCL 50MG TABLET PO SCH ×3 (06:46→22:00)
[2020-02-21 08:00] VITALS: BP 151/74
[2020-02-21] MEDS: FERROUS SULFATE 325MG TABLET PO SCH ×3 (09:06→17:06)
[2020-02-21] MEDS: PANTOPRAZOLE 40MG DR TABLET PO SCH (09:06)
[2020-02-21] MEDS: CLONIDINE 0.3MG TABLET PO SCH ×2 (09:06→21:00)
[2020-02-21] MEDS: APIXABAN 5 MG TABLET PO SCH ×3 (09:06→17:06)
[2020-02-21] MEDS: AMLODIPINE 10MG TABLET PO SCH (09:07)
[2020-02-21] MEDS: METOPROLOL TARTRATE 50MG TABLET PO SCH ×2 (09:07→21:00)
[2020-02-21] MEDS: SPIRONOLACTONE 25MG TABLET PO SCH (09:07)
[2020-02-21] MEDS: DOXAZOSIN MESYLATE 4MG TABLET PO SCH ×2 (09:08→21:00)
[2020-02-21] MEDS: ALLOPURINOL 100 MG TABLET PO SCH ×2 (09:08→17:00)
[2020-02-21] MEDS: FUROSEMIDE 40MG/4ML VIAL IV SCH (09:08)
[2020-02-21] MEDS: ONDANSETRON HCL 4MG/2ML INJ IV PRN (09:08)
[2020-02-21] MEDS: MORPHINE SULFATE 2 MG/ML CPJ (NOT FOR IM USE) IV PRN ×2 (10:36→18:09)
[2020-02-21 12:00] VITALS: BP 102/44
[2020-02-21] MEDS: DOCUSATE SODIUM 100MG CAPSULE PO PRN ×2 (13:29→21:09)
[2020-02-21 16:00] VITALS: BP 105/48
[2020-02-21 20:00] VITALS: BP 104/55
[2020-02-21] MEDS: ATORVASTATIN CALCIUM 40MG TABLET PO SCH (21:09)
[2020-02-22] VITALS: BP 98/50
[2020-02-22] MEDS: HYDROCODONE/ACETAMINOPHEN 5/325MG TABLET PO PRN (02:23)
[2020-02-22 04:00] VITALS: BP 109/43
[2020-02-22] MEDS: HYDRALAZINE HCL 50MG TABLET PO SCH ×3 (06:00→22:00)
[2020-02-22] MEDS: INSULIN LISPRO 100 UNITS/ML SUBCUT SCH ×4 (06:06→20:47)
[2020-02-22] MEDS: BLOOD SUGAR DIAGNOSTIC STRIP TEST SCH ×4 (06:06→21:00)
[2020-02-22 06:58] LABS: BASOPHILS % 0.8 % (0.0-2.0); HEMATOCRIT. 29.6 % (36.0-48.0); HEMOGLOBIN. 9.8 g/dL (12.0-16.0); LYMPHOCYTES % 35.4 % (20.0-50.0); MEAN CORPUSCULAR HEMOGLOBIN 30.7 pg (28.0-32.0); MEAN CORPUSCULAR VOLUME 92.9 fL (81.0-99.0); MEAN PLATELET VOLUME 10.2 fl (7.4-10.4); MONOCYTES % 8.6 % (2.0-8.0); NEUTROPHILS % 50.2 % (40.0-76.0); PLATELET 181 x1000/uL (130-400); RED BLOOD CELL COUNT 3.19 mill/uL (4.2-5.4); RED CELL DISTRIBUTION WIDTH 16.5 % (11.6-14.6)
[2020-02-22 08:00] VITALS: BP 113/53
[2020-02-22] MEDS: ALLOPURINOL 100 MG TABLET PO SCH ×2 (08:57→17:30)
[2020-02-22] MEDS: FERROUS SULFATE 325MG TABLET PO SCH ×3 (08:57→17:30)
[2020-02-22] MEDS: SPIRONOLACTONE 25MG TABLET PO SCH (08:57)
[2020-02-22] MEDS: FAMOTIDINE 20MG TABLET PO SCH (08:57)
[2020-02-22] MEDS: APIXABAN 5 MG TABLET PO SCH ×2 (08:57→17:30)
[2020-02-22] MEDS: FUROSEMIDE 40MG/4ML VIAL IV SCH (08:58)
[2020-02-22] MEDS: AMLODIPINE 10MG TABLET PO SCH (08:58)
[2020-02-22] MEDS: DOXAZOSIN MESYLATE 4MG TABLET PO SCH ×2 (09:00→21:00)
[2020-02-22] MEDS: CLONIDINE 0.3MG TABLET PO SCH (09:00)
[2020-02-22] MEDS ORDERED: CLONIDINE 0.3MG TABLET PO PRN (09:45)
[2020-02-22] MEDS: METOPROLOL TARTRATE 50MG TABLET PO SCH ×2 (11:06→22:52)
[2020-02-22] MEDS: ACETAMINOPHEN 325MG TABLET PO PRN ×2 (11:09→18:01)
[2020-02-22 12:09] VITALS: BP 125/61
[2020-02-22] MEDS ORDERED: CLONIDINE 0.1MG TABLET PO PRN (12:30)
[2020-02-22] MEDS ORDERED: DIGOXIN 500MCG/2ML AMP IV NR ×3 (12:45→18:00)
[2020-02-22 16:00] VITALS: BP 134/51
[2020-02-22 20:00] VITALS: BP 100/49
[2020-02-22] MEDS: ATORVASTATIN CALCIUM 40MG TABLET PO SCH (20:47)
[2020-02-22] MEDS: DOCUSATE SODIUM 100MG CAPSULE PO PRN (21:48)
[2020-02-23] VITALS: BP 122/53
[2020-02-23] MEDS: MORPHINE SULFATE 2 MG/ML CPJ (NOT FOR IM USE) IV PRN (00:25)
[2020-02-23 04:00] VITALS: BP 136/61
[2020-02-23] MEDS: INSULIN LISPRO 100 UNITS/ML SUBCUT SCH ×4 (06:02→22:48)
[2020-02-23] MEDS: BLOOD SUGAR DIAGNOSTIC STRIP TEST SCH ×4 (06:02→21:00)
[2020-02-23 08:00] VITALS: BP 154/91
[2020-02-23] MEDS: FAMOTIDINE 20MG TABLET PO SCH (10:00)
[2020-02-23] MEDS: FERROUS SULFATE 325MG TABLET PO SCH ×3 (10:01→17:46)
[2020-02-23] MEDS: FUROSEMIDE 40MG/4ML VIAL IV SCH (10:01)
[2020-02-23] MEDS: ALLOPURINOL 100 MG TABLET PO SCH ×2 (10:01→17:46)
[2020-02-23] MEDS: SPIRONOLACTONE 25MG TABLET PO SCH (10:01)
[2020-02-23] MEDS: APIXABAN 5 MG TABLET PO SCH ×2 (10:01→17:46)
[2020-02-23] MEDS: METOPROLOL TARTRATE 50MG TABLET PO SCH ×2 (10:01→22:16)
[2020-02-23] MEDS: ONDANSETRON HCL 4MG/2ML INJ IV PRN (10:11)
[2020-02-23 12:00] VITALS: BP 150/69
[2020-02-23] MEDS: AMLODIPINE 10MG TABLET PO SCH (12:22)
[2020-02-23] MEDS: DOXAZOSIN MESYLATE 4MG TABLET PO SCH ×2 (12:23→22:17)
[2020-02-23] MEDS: HYDRALAZINE HCL 50MG TABLET PO SCH ×2 (14:00→22:18)
[2020-02-23] MEDS ORDERED: DIGOXIN 500MCG/2ML AMP IV NR (15:15)
[2020-02-23] MEDS: ACETAMINOPHEN 325MG TABLET PO PRN (15:24)
[2020-02-23 16:00] VITALS: BP 142/53
[2020-02-23 16:25] LABS: CHLORIDE 104 mEq/L (98-107)
[2020-02-23] MEDS ORDERED: AMIODARONE HCL 150 MG in DEXT 5% WATER 100 ML IV ONE (17:00)
[2020-02-23 17:12] LABS: PHOSPHORUS 2.6 mg/dL (2.5-4.9)
[2020-02-23 20:00] VITALS: BP 144/45
[2020-02-23] MEDS: ATORVASTATIN CALCIUM 40MG TABLET PO SCH (22:18)
[2020-02-24] VITALS (24 sets, daily range): BP systolic 124–173; BP diastolic 51–91
[2020-02-24] MEDS: BLOOD SUGAR DIAGNOSTIC STRIP TEST SCH ×4 (06:01→20:46)
[2020-02-24] MEDS: HYDRALAZINE HCL 50MG TABLET PO SCH ×3 (06:01→23:58)
[2020-02-24] MEDS: INSULIN LISPRO 100 UNITS/ML SUBCUT SCH ×5 (06:03→20:55)
[2020-02-24] MEDS: APIXABAN 5 MG TABLET PO SCH ×2 (09:43→17:33)
[2020-02-24] MEDS: FERROUS SULFATE 325MG TABLET PO SCH ×3 (09:43→17:33)
[2020-02-24] MEDS: ALLOPURINOL 100 MG TABLET PO SCH ×2 (09:43→17:34)
[2020-02-24] MEDS: DOCUSATE SODIUM 100MG CAPSULE PO PRN (09:43)
[2020-02-24] MEDS: DOXAZOSIN MESYLATE 4MG TABLET PO SCH ×2 (09:44→20:45)
[2020-02-24] MEDS: FAMOTIDINE 20MG TABLET PO SCH (09:44)
[2020-02-24] MEDS: SPIRONOLACTONE 25MG TABLET PO SCH (09:45)
[2020-02-24] MEDS: FUROSEMIDE 40MG/4ML VIAL IV SCH (09:45)
[2020-02-24] MEDS: METOPROLOL TARTRATE 50MG TABLET PO SCH ×2 (09:47→20:46)
[2020-02-24] MEDS: AMLODIPINE 10MG TABLET PO SCH (12:12)
[2020-02-24] MEDS: ONDANSETRON HCL 4MG/2ML INJ IV PRN (13:31)
[2020-02-24] MEDS ORDERED: AMIODARONE HCL 150 MG in DEXT 5% WATER 100 ML IV ONE (16:00)
[2020-02-24] MEDS: AMIODARONE HCL 900 MG in DEXT 5% WATER 482 ML IV PRN (18:20)
[2020-02-24] MEDS: ATORVASTATIN CALCIUM 40MG TABLET PO SCH (20:45)
[2020-02-25] VITALS (86 sets, daily range): BP systolic 105–171; BP diastolic 47–112
[2020-02-25] MEDS: HYDRALAZINE HCL 50MG TABLET PO SCH ×3 (07:05→22:35)
[2020-02-25] MEDS: BLOOD SUGAR DIAGNOSTIC STRIP TEST SCH ×4 (08:04→20:41)
[2020-02-25] MEDS: FUROSEMIDE 40MG/4ML VIAL IV SCH (08:15)
[2020-02-25] MEDS: ALLOPURINOL 100 MG TABLET PO SCH ×2 (08:16→16:15)
[2020-02-25] MEDS: FERROUS SULFATE 325MG TABLET PO SCH ×3 (08:16→16:16)
[2020-02-25] MEDS: DOXAZOSIN MESYLATE 4MG TABLET PO SCH ×2 (08:16→20:41)
[2020-02-25] MEDS: SPIRONOLACTONE 25MG TABLET PO SCH (08:16)
[2020-02-25] MEDS: FAMOTIDINE 20MG TABLET PO SCH (08:16)
[2020-02-25] MEDS: METOPROLOL TARTRATE 50MG TABLET PO SCH ×2 (08:17→20:41)
[2020-02-25] MEDS: AMLODIPINE 10MG TABLET PO SCH (08:17)
[2020-02-25] MEDS: INSULIN LISPRO 100 UNITS/ML SUBCUT SCH ×4 (08:19→20:41)
[2020-02-25] MEDS: APIXABAN 5 MG TABLET PO SCH ×2 (09:09→16:16)
[2020-02-25] MEDS: NYSTATIN POWDER 15GM TOP SCH ×2 (12:23→16:17)
[2020-02-25] MEDS: AMIODARONE HCL 900 MG in DEXT 5% WATER 482 ML IV PRN (17:21)
[2020-02-25] MEDS: ATORVASTATIN CALCIUM 40MG TABLET PO SCH (20:40)
[2020-02-26] VITALS (87 sets, daily range): BP systolic 68–170; BP diastolic 40–120
[2020-02-26] MEDS: ONDANSETRON HCL 4MG/2ML INJ IV PRN ×3 (03:41→22:20)
[2020-02-26] MEDS: HYDRALAZINE HCL 50MG TABLET PO SCH ×2 (05:12→14:15)
[2020-02-26 06:02] LABS: BASOPHILS % 0.9 % (0.0-2.0); EOSINOPHILS % 5.1 % (0.0-5.0); HEMATOCRIT. 31.1 % (36.0-48.0); HEMOGLOBIN. 10.3 g/dL (12.0-16.0); LYMPHOCYTES % 23.3 % (20.0-50.0); MEAN CORPUSCULAR HEMOGLOBIN 30.7 pg (28.0-32.0); MEAN CORPUSCULAR VOLUME 92.4 fL (81.0-99.0); MONOCYTES % 8.7 % (2.0-8.0); PLATELET 216 x1000/uL (130-400); RED BLOOD CELL COUNT 3.37 mill/uL (4.2-5.4); RED CELL DISTRIBUTION WIDTH 16.7 % (11.6-14.6)
[2020-02-26] MEDS: FAMOTIDINE 20MG TABLET PO SCH (08:35)
[2020-02-26] MEDS: BLOOD SUGAR DIAGNOSTIC STRIP TEST SCH ×4 (08:35→21:24)
[2020-02-26] MEDS: ALLOPURINOL 100 MG TABLET PO SCH ×2 (08:36→17:42)
[2020-02-26] MEDS: FERROUS SULFATE 325MG TABLET PO SCH ×3 (08:36→17:43)
[2020-02-26] MEDS: METOPROLOL TARTRATE 50MG TABLET PO SCH ×2 (08:36→21:22)
[2020-02-26] MEDS: AMLODIPINE 10MG TABLET PO SCH (08:36)
[2020-02-26] MEDS: SPIRONOLACTONE 25MG TABLET PO SCH (08:36)
[2020-02-26] MEDS: APIXABAN 5 MG TABLET PO SCH ×2 (08:36→17:43)
[2020-02-26] MEDS: DOCUSATE SODIUM 100MG CAPSULE PO PRN (08:36)
[2020-02-26] MEDS: DOXAZOSIN MESYLATE 4MG TABLET PO SCH ×2 (08:37→21:21)
[2020-02-26] MEDS: NYSTATIN POWDER 15GM TOP SCH ×3 (08:37→17:43)
[2020-02-26] MEDS: INSULIN LISPRO 100 UNITS/ML SUBCUT SCH ×4 (09:06→21:00)
[2020-02-26] MEDS: FUROSEMIDE 40MG/4ML VIAL IV SCH (09:32)
[2020-02-26] MEDS: MORPHINE SULFATE 2 MG/ML CPJ (NOT FOR IM USE) IV PRN ×2 (12:16→19:57)
[2020-02-26] MEDS ORDERED: DIGOXIN 500MCG/2ML AMP IV SCH (13:00)
[2020-02-26] MEDS ORDERED: AMIODARONE HCL 150 MG in DEXT 5% WATER 100 ML IV SCH (14:00)
[2020-02-26] MEDS: DIGOXIN 125MCG TABLET PO SCH (17:42)
[2020-02-26] MEDS: AMIODARONE HCL 200 MG TABLET PO SCH (17:43)
[2020-02-26] MEDS: HYDRALAZINE HCL 100MG TABLET PO SCH (21:20)
[2020-02-26] MEDS: ACETAMINOPHEN 325MG TABLET PO PRN (21:20)
[2020-02-26] MEDS: ATORVASTATIN CALCIUM 40MG TABLET PO SCH (21:21)
[2020-02-27] VITALS (59 sets, daily range): BP systolic 102–171; BP diastolic 48–115
[2020-02-27] MEDS: ONDANSETRON HCL 4MG/2ML INJ IV PRN (02:54)
[2020-02-27] MEDS: MORPHINE SULFATE 2 MG/ML CPJ (NOT FOR IM USE) IV PRN (02:55)
[2020-02-27] MEDS: HYDRALAZINE HCL 100MG TABLET PO SCH ×3 (06:00→21:42)
[2020-02-27] MEDS: METOCLOPRAMIDE HCL 10MG/2ML VIAL IV SCH ×4 (07:05→21:43)
[2020-02-27] MEDS: BLOOD SUGAR DIAGNOSTIC STRIP TEST SCH ×4 (08:13→21:46)
[2020-02-27] MEDS: INSULIN LISPRO 100 UNITS/ML SUBCUT SCH ×4 (08:20→21:00)
[2020-02-27] MEDS: APIXABAN 5 MG TABLET PO SCH ×2 (09:00→17:57)
[2020-02-27] MEDS: FUROSEMIDE 40MG/4ML VIAL IV SCH (09:00)
[2020-02-27] MEDS: FAMOTIDINE 20MG TABLET PO SCH (09:00)
[2020-02-27] MEDS: METOPROLOL TARTRATE 50MG TABLET PO SCH ×2 (09:00→21:44)
[2020-02-27] MEDS: AMLODIPINE 10MG TABLET PO SCH (09:00)
[2020-02-27] MEDS: AMIODARONE HCL 200 MG TABLET PO SCH ×2 (09:00→17:57)
[2020-02-27] MEDS: SPIRONOLACTONE 25MG TABLET PO SCH (09:00)
[2020-02-27] MEDS: ALLOPURINOL 100 MG TABLET PO SCH ×2 (09:00→17:57)
[2020-02-27] MEDS: NYSTATIN POWDER 15GM TOP SCH ×3 (09:00→17:58)
[2020-02-27] MEDS: DOXAZOSIN MESYLATE 4MG TABLET PO SCH ×2 (09:00→21:44)
[2020-02-27] MEDS: FERROUS SULFATE 325MG TABLET PO SCH ×3 (09:00→17:57)
[2020-02-27 09:48] LABS: BASOPHILS % 0.4 % (0.0-2.0); EOSINOPHILS % 0.4 % (0.0-5.0); HEMATOCRIT. 33.7 % (36.0-48.0); HEMOGLOBIN. 11.1 g/dL (12.0-16.0); LYMPHOCYTES % 9.1 % (20.0-50.0); MEAN CORPUSCULAR HEMOGLOBIN 30.3 pg (28.0-32.0); MEAN PLATELET VOLUME 9.2 fl (7.4-10.4); MONOCYTES % 5.9 % (2.0-8.0); NEUTROPHILS % 84.2 % (40.0-76.0); PLATELET 225 x1000/uL (130-400); RED BLOOD CELL COUNT 3.66 mill/uL (4.2-5.4); RED CELL DISTRIBUTION WIDTH 16.7 % (11.6-14.6)
[2020-02-27 09:59] LABS: CHLORIDE 99 mEq/L (98-107)
[2020-02-27 10:04] LABS: AMYLASE 95 IU/L (25-115)
[2020-02-27] MEDS ORDERED: BISACODYL 5MG TABLET PO PRN (11:15)
[2020-02-27] MEDS ORDERED: PANTOPRAZOLE SODIUM 40 MG/VIAL IV SCH (12:00)
[2020-02-27] MEDS: PANTOPRAZOLE SODIUM 40 MG/VIAL IV SCH ×2 (13:58→21:43)
[2020-02-27] MEDS: DIGOXIN 125MCG TABLET PO SCH (17:57)
[2020-02-27] MEDS ORDERED: DILTIAZEM HCL 5MG/ML 5ML VIAL IV NR (18:36)
[2020-02-27 20:19] LABS: BASOPHILS % 0.5 % (0.0-2.0); EOSINOPHILS % 0.1 % (0.0-5.0); HEMOGLOBIN. 10.8 g/dL (12.0-16.0); LYMPHOCYTES % 8.8 % (20.0-50.0); MEAN CORPUSCULAR HEMOGLOBIN 30.8 pg (28.0-32.0); MEAN CORPUSCULAR VOLUME 91.8 fL (81.0-99.0); MEAN PLATELET VOLUME 9.9 fl (7.4-10.4); MONOCYTES % 5.7 % (2.0-8.0); NEUTROPHILS % 84.9 % (40.0-76.0); PLATELET 228 x1000/uL (130-400); RED BLOOD CELL COUNT 3.49 mill/uL (4.2-5.4); RED CELL DISTRIBUTION WIDTH 16.6 % (11.6-14.6)
[2020-02-27] MEDS: ATORVASTATIN CALCIUM 40MG TABLET PO SCH (21:45)
[2020-02-27] MEDS: SIMETHICONE 80MG TABLET CHEW PO PRN (22:26)
[2020-02-28] VITALS (32 sets, daily range): BP systolic 108–165; BP diastolic 52–102
[2020-02-28] MEDS: METOCLOPRAMIDE HCL 10MG/2ML VIAL IV SCH ×3 (05:12→16:50)
[2020-02-28] MEDS: HYDRALAZINE HCL 100MG TABLET PO SCH ×3 (05:12→22:36)
[2020-02-28] MEDS: SIMETHICONE 80MG TABLET CHEW PO PRN (05:19)
[2020-02-28] MEDS: PANTOPRAZOLE SODIUM 40 MG/VIAL IV SCH ×2 (08:10→20:57)
[2020-02-28] MEDS: SPIRONOLACTONE 25MG TABLET PO SCH (08:11)
[2020-02-28] MEDS: AMLODIPINE 10MG TABLET PO SCH (08:11)
[2020-02-28] MEDS: DOXAZOSIN MESYLATE 4MG TABLET PO SCH ×2 (08:11→21:02)
[2020-02-28] MEDS: APIXABAN 5 MG TABLET PO SCH ×2 (08:11→16:50)
[2020-02-28] MEDS: ALLOPURINOL 100 MG TABLET PO SCH ×2 (08:11→16:50)
[2020-02-28] MEDS: METOPROLOL TARTRATE 50MG TABLET PO SCH ×2 (08:11→21:02)
[2020-02-28] MEDS: BLOOD SUGAR DIAGNOSTIC STRIP TEST SCH ×4 (08:12→20:45)
[2020-02-28] MEDS: INSULIN LISPRO 100 UNITS/ML SUBCUT SCH ×4 (08:20→20:45)
[2020-02-28 08:58] LABS: BASOPHILS % 0.4 % (0.0-2.0); EOSINOPHILS % 0.4 % (0.0-5.0); HEMATOCRIT. 32.2 % (36.0-48.0); HEMOGLOBIN. 10.7 g/dL (12.0-16.0); LYMPHOCYTES % 13.8 % (20.0-50.0); MEAN CORPUSCULAR HEMOGLOBIN 30.7 pg (28.0-32.0); MEAN CORPUSCULAR VOLUME 92.2 fL (81.0-99.0); MEAN PLATELET VOLUME 9.9 fl (7.4-10.4); MONOCYTES % 8.1 % (2.0-8.0); NEUTROPHILS % 77.3 % (40.0-76.0); PLATELET 231 x1000/uL (130-400); RED CELL DISTRIBUTION WIDTH 16.6 % (11.6-14.6)
[2020-02-28] MEDS: NYSTATIN POWDER 15GM TOP SCH ×3 (11:59→17:00)
[2020-02-28] MEDS: AMIODARONE HCL 200 MG TABLET PO SCH (13:25)
[2020-02-28] MEDS: DOCUSATE SODIUM 100MG CAPSULE PO PRN (16:50)
[2020-02-28] MEDS: DIGOXIN 125MCG TABLET PO SCH (16:50)
[2020-02-28] MEDS: ATORVASTATIN CALCIUM 40MG TABLET PO SCH (20:57)
[2020-02-29] VITALS: BP 135/60
[2020-02-29] MEDS: METOCLOPRAMIDE HCL 10MG/2ML VIAL IV SCH ×3 (03:44→12:22)
[2020-02-29 04:00] VITALS: BP 134/65
[2020-02-29] MEDS: HYDRALAZINE HCL 100MG TABLET PO SCH ×2 (05:52→13:50)
[2020-02-29] MEDS: BLOOD SUGAR DIAGNOSTIC STRIP TEST SCH ×2 (05:55→12:19)
[2020-02-29] MEDS: INSULIN LISPRO 100 UNITS/ML SUBCUT SCH ×2 (07:15→12:23)
[2020-02-29 08:00] VITALS: BP 135/53
[2020-02-29] MEDS: NYSTATIN POWDER 15GM TOP SCH ×3 (09:00→17:00)
[2020-02-29] MEDS: PANTOPRAZOLE SODIUM 40 MG/VIAL IV SCH (09:22)
[2020-02-29] MEDS: AMIODARONE HCL 200 MG TABLET PO SCH (09:23)
[2020-02-29] MEDS: ALLOPURINOL 100 MG TABLET PO SCH ×2 (09:23→17:13)
[2020-02-29] MEDS: SPIRONOLACTONE 25MG TABLET PO SCH (09:23)
[2020-02-29] MEDS: APIXABAN 5 MG TABLET PO SCH ×2 (09:24→17:13)
[2020-02-29] MEDS: METOPROLOL TARTRATE 50MG TABLET PO SCH (09:24)
[2020-02-29] MEDS: DOXAZOSIN MESYLATE 4MG TABLET PO SCH (09:24)
[2020-02-29] MEDS: AMLODIPINE 10MG TABLET PO SCH (09:25)
[2020-02-29 12:00] VITALS: BP 103/51
[2020-02-29 14:54] VITALS: BP_SYST 103; BP_SYST 105; BP_DIAS 51; BP_DIAS 55
[2020-02-29 16:00] VITALS: BP 105/55
[2020-02-29] MEDS: DIGOXIN 125MCG TABLET PO SCH (17:12)
== END 2020-02-29 17:30 | disposition home or self-care (01) | DRG 291 ==
LOC: ER 11:48 → 5WST 14:53 → ENRESERV 15:15 → CVICU 02-24 18:08 → 5WST 02-28 14:05
PROVIDERS: ADMIT Hospitalist; ATTEND Hospitalist
DX: I13.0 Hypertensive heart and chronic kidney disease with heart failure and stage 1 through stage 4 chronic kidney disease, or unspecified chronic kidney disease (principal); I50.33 Acute on chronic diastolic (congestive) heart failure; J96.01 Acute respiratory failure with hypoxia; N17.9 Acute kidney failure, unspecified; I48.20 Chronic atrial fibrillation, unspecified; I48.92 Unspecified atrial flutter; E78.5 Hyperlipidemia, unspecified; E11.40 Type 2 diabetes mellitus with diabetic neuropathy, unspecified; E11.22 Type 2 diabetes mellitus with diabetic chronic kidney disease; D63.8 Anemia in other chronic diseases classified elsewhere; M10.9 Gout, unspecified; N18.9 Chronic kidney disease, unspecified; I16.0 Hypertensive urgency; E66.01 Morbid (severe) obesity due to excess calories; I27.29 Other secondary pulmonary hypertension; E11.65 Type 2 diabetes mellitus with hyperglycemia; E78.00 Pure hypercholesterolemia, unspecified; K29.70 Gastritis, unspecified, without bleeding; K52.9 Noninfective gastroenteritis and colitis, unspecified; K21.9 Gastro-esophageal reflux disease without esophagitis; M19.90 Unspecified osteoarthritis, unspecified site; I95.9 Hypotension, unspecified; Z79.01 Long term (current) use of anticoagulants; Z88.8 Allergy status to other drugs, medicaments and biological substances; Z90.49 Acquired absence of other specified parts of digestive tract; Z79.899 Other long term (current) drug therapy
CPT/HCPCS: 36415; 71045; 74018; 74176; 76700; 80048; 80053; 80061; 80162; 82150; 82550; 82962; 83036; 83735; 83880; 84100; 84484; 85025; 90686; 93005; 93306; 93970; 97162; 99285; C1893; C9113; J0282; J1160; J1815; J1940; J2270; J2405; J2765; J3490; J7060; A4315

== ENCOUNTER 2020-03-01 05:11 | Inpatient (IN) | payer MEDICARE, MEDICAID ==
[~2020-03-01] VITALS: Ht 165.1 cm; Wt 117.9 kg
[2020-03-01] VITALS (9 sets, daily range): BP systolic 98–152; BP diastolic 52–75
[~2020-03-01 05:11] MED LIST changes: +ACET-2708 PO; +AMLO10TA80 PO; +CLON0.3T PO; -DICL50TA9 PO; -DOCU250C69 PO; +DOXA4TAB3 PO; +EMPA10TA PO; +FURO40TA5 PO; -GLIP10TA10 MT; -HYDR-4134 PO; +HYDR-4135 PO; +SPIR25TA6 PO; +VALS160T28 PO
[2020-03-01] MEDS ORDERED: DILTIAZEM HCL 5MG/ML 5ML VIAL IV ONE (06:15)
[2020-03-01 06:43] LABS: BASOPHILS % 0.8 % (0.0-2.0); EOSINOPHILS % 1.5 % (0.0-5.0); HEMATOCRIT. 32.8 % (36.0-48.0); LYMPHOCYTES % 14.3 % (20.0-50.0); MEAN CORPUSCULAR HEMOGLOBIN 30.9 pg (28.0-32.0); MEAN CORPUSCULAR VOLUME 91.9 fL (81.0-99.0); MEAN PLATELET VOLUME 9.7 fl (7.4-10.4); MONOCYTES % 7.4 % (2.0-8.0); PLATELET 248 x1000/uL (130-400); RED BLOOD CELL COUNT 3.57 mill/uL (4.2-5.4); RED CELL DISTRIBUTION WIDTH 16.8 % (11.6-14.6)
[2020-03-01 06:53] LABS: INR 1.1; PARTIAL THROMBOPLASTIN TIME 33.3 sec (23.4-31.0); PROTHROMBIN TIME 11.3 sec (9.6-11.0)
[2020-03-01 06:54] LABS: CHLORIDE 98 mEq/L (98-107)
[2020-03-01] MEDS ORDERED: FUROSEMIDE 20MG/2ML VIAL IVP ONE (07:45)
[2020-03-01 09:33] LABS: CLARITY URINE CLEAR (CLEAR); COLOR URINE YELLOW (YELLOW); KETONES URINE NEGATIVE (NEGATIVE); LEUKOCYTE ESTERASE URINE NEGATIVE (NEGATIVE); NITRITE URINE NEGATIVE (NEGATIVE); OCCULT BLOOD URINE NEGATIVE (NEGATIVE); PH URINE 7.5 (4.5-8.0); PROTEIN URINE NEGATIVE (NEGATIVE); UROBILINOGEN URINE 0.2 E.U./dL (0.2-1.0)
[2020-03-01] MEDS ORDERED: METOPROLOL TARTRATE 50MG TABLET PO SCH (10:00)
[2020-03-01] MEDS ORDERED: ONDANSETRON HCL 4MG/2ML INJ IV PRN (10:15)
[2020-03-01] MEDS ORDERED: FUROSEMIDE 40MG/4ML VIAL IVP SCH (10:15)
[2020-03-01] MEDS ORDERED: ACETAMINOPHEN 325MG TABLET PO PRN (10:15)
[2020-03-01] MEDS: DOCUSATE SODIUM 250MG CAPSULE PO SCH (11:27)
[2020-03-01] MEDS: TRAMADOL 50MG TABLET PO PRN ×2 (11:28→17:33)
[2020-03-01] MEDS ORDERED: SODIUM CHLORIDE 0.9% 500 ML IV ONE (14:45)
[2020-03-01] MEDS ORDERED: DIGOXIN 125MCG TABLET PO SCH (18:00)
[2020-03-01] MEDS: HEMORRHOIDAL SUPP PR SCH (21:37)
[2020-03-02] VITALS (7 sets, daily range): BP systolic 113–156; BP diastolic 54–83
[2020-03-02] MEDS: TRAMADOL 50MG TABLET PO PRN (05:47)
[2020-03-02 05:48] LABS: BASOPHILS % 0.8 % (0.0-2.0); EOSINOPHILS % 4.2 % (0.0-5.0); HEMOGLOBIN. 10.2 g/dL (12.0-16.0); LYMPHOCYTES % 28.1 % (20.0-50.0); MEAN CORPUSCULAR HEMOGLOBIN 30.3 pg (28.0-32.0); MEAN CORPUSCULAR VOLUME 91.7 fL (81.0-99.0); MEAN PLATELET VOLUME 10.1 fl (7.4-10.4); MONOCYTES % 10.2 % (2.0-8.0); NEUTROPHILS % 56.7 % (40.0-76.0); PLATELET 244 x1000/uL (130-400); RED BLOOD CELL COUNT 3.37 mill/uL (4.2-5.4); RED CELL DISTRIBUTION WIDTH 16.1 % (11.6-14.6)
[2020-03-02] MEDS: HEMORRHOIDAL SUPP PR SCH (08:59)
[2020-03-02] MEDS: DOCUSATE SODIUM 250MG CAPSULE PO SCH (08:59)
[2020-03-02] MEDS ORDERED: AMIODARONE HCL 200 MG TABLET PO SCH ×2 (09:00→12:00)
[2020-03-02] MEDS ORDERED: DOCU250C14 MT (11:23)
[2020-03-02] MEDS ORDERED: APIXABAN 5 MG TABLET PO SCH (12:00)
== END 2020-03-02 13:05 | disposition home health service (06) | DRG 393 ==
LOC: ER 05:11 → 3WST 06:58 → EDBEDREQ 07:00 → EDBEDREQTM 07:00 → ENRESERV 07:44
PROVIDERS: ADMIT Internal Medicine; ATTEND Internal Medicine
DX: K64.9 Unspecified hemorrhoids (principal); I50.23 Acute on chronic systolic (congestive) heart failure; N17.0 Acute kidney failure with tubular necrosis; K62.5 Hemorrhage of anus and rectum; E87.1 Hypo-osmolality and hyponatremia; I13.0 Hypertensive heart and chronic kidney disease with heart failure and stage 1 through stage 4 chronic kidney disease, or unspecified chronic kidney disease; I42.9 Cardiomyopathy, unspecified; I48.21 Permanent atrial fibrillation; I48.92 Unspecified atrial flutter; Z68.41 Body mass index [BMI] 40.0-44.9, adult; E11.22 Type 2 diabetes mellitus with diabetic chronic kidney disease; E66.9 Obesity, unspecified; E78.5 Hyperlipidemia, unspecified; I27.20 Pulmonary hypertension, unspecified; I45.9 Conduction disorder, unspecified; M10.9 Gout, unspecified; N18.9 Chronic kidney disease, unspecified; Z79.01 Long term (current) use of anticoagulants; Z82.49 Family history of ischemic heart disease and other diseases of the circulatory system; Z90.710 Acquired absence of both cervix and uterus; Z88.8 Allergy status to other drugs, medicaments and biological substances; Z79.899 Other long term (current) drug therapy
CPT/HCPCS: 36415; 71045; 80048; 80053; 81003; 83880; 84484; 85025; 86850; 86900; 93005; 99291; J1940; J3490; J7040

== ENCOUNTER 2020-06-17 11:50 | Inpatient (IN) | payer MEDICARE, MEDICAID ==
[~2020-06-17] VITALS: Ht 170.2 cm; Wt 113.9 kg
[~2020-06-17 11:50] MED LIST changes: -CLON0.3T PO; +DOCU250C14 MT; -PANT40TA4 PO; +PANT40TA51 PO
[2020-06-17 12:41] LABS: BASOPHILS % 0.9 % (0.0-2.0); EOSINOPHILS % 2.8 % (0.0-5.0); HEMATOCRIT. 31.4 % (36.0-48.0); HEMOGLOBIN. 10.6 g/dL (12.0-16.0); LYMPHOCYTES % 20.1 % (20.0-50.0); MEAN CORPUSCULAR HEMOGLOBIN 30.4 pg (28.0-32.0); MEAN CORPUSCULAR VOLUME 90.3 fL (81.0-99.0); MEAN PLATELET VOLUME 9.9 fl (7.4-10.4); MONOCYTES % 4.5 % (2.0-8.0); NEUTROPHILS % 71.7 % (40.0-76.0); PLATELET 212 x1000/uL (130-400); RED BLOOD CELL COUNT 3.48 mill/uL (4.2-5.4); RED CELL DISTRIBUTION WIDTH 16.6 % (11.6-14.6)
[2020-06-17 12:46] LABS: CHLORIDE 105 mEq/L (98-107)
[2020-06-17 12:50] LABS: ETHANOL BLOOD < 10 mg/dL
[2020-06-17] MEDS ORDERED: FUROSEMIDE 40MG/4ML VIAL IVP ONE (13:00)
[2020-06-17] MEDS ORDERED: TRAMADOL 50MG TABLET PO ONE (13:00)
[2020-06-17 13:05] LABS: T4 FREE 1.32 ng/dL (0.76-1.46)
[2020-06-17] MEDS ORDERED: ONDANSETRON HCL 4MG/2ML INJ IV PRN (13:30)
[2020-06-17] MEDS ORDERED: FUROSEMIDE 40MG/4ML VIAL IVP SCH (13:30)
[2020-06-17] MEDS ORDERED: ENOXAPARIN 120MG/0.8ML SYR SUBCUT SCH ×2 (14:00→15:00)
[2020-06-17 14:41] LABS: *AMPHETAMINES SCREEN URINE NEGATIVE (NEGATIVE); *BARBITURATES SCREEN URINE NEGATIVE (NEGATIVE); *BENZODIAZEPINES SCREEN URINE NEGATIVE (NEGATIVE); *COCAINE SCREEN URINE NEGATIVE (NEGATIVE); METHADONE URINE SCREEN NEGATIVE (NEGATIVE)
[2020-06-17 14:42] LABS: CANNABINOID URINE SCREEN NEGATIVE (NEGATIVE); OPIATES URINE SCREEN NEGATIVE (NEGATIVE); PHENCYCLIDINE URINE SCREEN NEGATIVE (NEGATIVE)
[2020-06-17] MEDS ORDERED: DIGO125T80 PO (17:16)
[2020-06-17] MEDS ORDERED: AMIO100T4 PO (17:16)
[2020-06-17] MEDS: FUROSEMIDE 40MG/4ML VIAL IVP SCH (17:50)
[2020-06-17 18:11] VITALS: BP 130/77
[2020-06-17 20:00] VITALS: BP 137/72
[2020-06-17] MEDS: DIGOXIN 125MCG TABLET PO SCH (20:09)
[2020-06-17] MEDS: ACETAMINOPHEN 325MG TABLET PO PRN (20:14)
[2020-06-17] MEDS ORDERED: CARVEDILOL 12.5MG TABLET PO SCH (21:00)
[2020-06-18] VITALS (7 sets, daily range): BP systolic 125–144; BP diastolic 47–78
[2020-06-18] MEDS: LEVOTHYROXINE SODIUM 50MCG TABLET PO SCH (05:27)
[2020-06-18] MEDS: ACETAMINOPHEN 325MG TABLET PO PRN (05:27)
[2020-06-18 06:27] LABS: INR 1.1; PROTHROMBIN TIME 11.9 sec (9.6-11.0)
[2020-06-18 06:35] LABS: BASOPHILS % 0.7 % (0.0-2.0); EOSINOPHILS % 3.3 % (0.0-5.0); HEMATOCRIT. 33.4 % (36.0-48.0); HEMOGLOBIN. 10.9 g/dL (12.0-16.0); LYMPHOCYTES % 26.6 % (20.0-50.0); MEAN CORPUSCULAR HEMOGLOBIN 29.6 pg (28.0-32.0); MEAN PLATELET VOLUME 10.2 fl (7.4-10.4); MONOCYTES % 7.2 % (2.0-8.0); NEUTROPHILS % 62.2 % (40.0-76.0); PLATELET 213 x1000/uL (130-400); RED BLOOD CELL COUNT 3.67 mill/uL (4.2-5.4)
[2020-06-18 06:37] LABS: CHLORIDE 104 mEq/L (98-107)
[2020-06-18] MEDS ORDERED: MEDICATION NOT ON FORMULARY EA (Amiodarone HCl 200 MG) PO SCH (09:00)
[2020-06-18] MEDS: CARVEDILOL 6.25 MG TABLET PO SCH ×2 (09:14→21:25)
[2020-06-18] MEDS: DOCUSATE SODIUM 250MG CAPSULE PO SCH (09:14)
[2020-06-18] MEDS: FUROSEMIDE 40MG/4ML VIAL IVP SCH ×2 (09:14→17:02)
[2020-06-18] MEDS: HYDRALAZINE HCL 100MG TABLET PO SCH ×3 (09:14→17:02)
[2020-06-18] MEDS: AMIODARONE HCL 200 MG TABLET PO SCH (09:14)
[2020-06-18] MEDS: AMLODIPINE 10MG TABLET PO SCH (09:15)
[2020-06-18] MEDS: LOSARTAN POTASSIUM 50 MG TABLET PO SCH (09:15)
[2020-06-18] MEDS ORDERED: GLIP10TA10 PO (10:45)
[2020-06-18] MEDS: HYDROCODONE/ACETAMINOPHEN 5/325MG TABLET PO PRN ×2 (10:54→17:09)
[2020-06-18] MEDS: ENOXAPARIN 120MG/0.8ML SYR SUBCUT SCH ×2 (17:00→17:02)
[2020-06-18] MEDS: DIGOXIN 125MCG TABLET PO SCH (21:25)
[2020-06-19] VITALS: BP 126/70
[2020-06-19] MEDS: HYDROCODONE/ACETAMINOPHEN 5/325MG TABLET PO PRN ×2 (00:02→10:33)
[2020-06-19 04:00] VITALS: BP 122/54
[2020-06-19] MEDS: LEVOTHYROXINE SODIUM 50MCG TABLET PO SCH (06:04)
[2020-06-19 07:31] LABS: BASOPHILS % 0.7 % (0.0-2.0); EOSINOPHILS % 3.4 % (0.0-5.0); HEMATOCRIT. 32.6 % (36.0-48.0); HEMOGLOBIN. 10.7 g/dL (12.0-16.0); LYMPHOCYTES % 24.8 % (20.0-50.0); MEAN CORPUSCULAR HEMOGLOBIN 29.7 pg (28.0-32.0); MEAN CORPUSCULAR VOLUME 90.4 fL (81.0-99.0); MEAN PLATELET VOLUME 10.1 fl (7.4-10.4); MONOCYTES % 7.6 % (2.0-8.0); NEUTROPHILS % 63.5 % (40.0-76.0); PLATELET 205 x1000/uL (130-400); RED BLOOD CELL COUNT 3.61 mill/uL (4.2-5.4); RED CELL DISTRIBUTION WIDTH 16.4 % (11.6-14.6)
[2020-06-19 08:00] VITALS: BP 137/73
[2020-06-19] MEDS: AMIODARONE HCL 200 MG TABLET PO SCH (08:37)
[2020-06-19] MEDS: CARVEDILOL 6.25 MG TABLET PO SCH ×2 (08:38→21:35)
[2020-06-19] MEDS: AMLODIPINE 10MG TABLET PO SCH (08:38)
[2020-06-19] MEDS: HYDRALAZINE HCL 100MG TABLET PO SCH ×3 (08:38→17:45)
[2020-06-19] MEDS: LOSARTAN POTASSIUM 50 MG TABLET PO SCH (08:38)
[2020-06-19] MEDS: DOCUSATE SODIUM 250MG CAPSULE PO SCH (08:39)
[2020-06-19] MEDS: FUROSEMIDE 40MG/4ML VIAL IVP SCH ×2 (08:39→17:45)
[2020-06-19] MEDS: APIXABAN 5 MG TABLET PO SCH ×2 (08:40→17:45)
[2020-06-19] MEDS ORDERED: APIXABAN 2.5 MG TABLET PO SCH (09:00)
[2020-06-19 12:00] VITALS: BP 124/65
[2020-06-19 16:00] VITALS: BP 138/67
[2020-06-19] MEDS: DIGOXIN 125MCG TABLET PO SCH (21:35)
[2020-06-20] VITALS: BP 136/72
[2020-06-20 04:00] VITALS: BP 123/61
[2020-06-20] MEDS: MORPHINE SULFATE 2 MG/ML CPJ (NOT FOR IM USE) IV PRN ×2 (06:00→14:13)
[2020-06-20] MEDS: LEVOTHYROXINE SODIUM 50MCG TABLET PO SCH (06:01)
[2020-06-20] MEDS: FUROSEMIDE 40MG/4ML VIAL IVP SCH ×2 (06:45→17:15)
[2020-06-20 08:00] VITALS: BP 117/42
[2020-06-20] MEDS: HYDRALAZINE HCL 100MG TABLET PO SCH ×3 (08:29→18:22)
[2020-06-20] MEDS: CARVEDILOL 6.25 MG TABLET PO SCH (08:30)
[2020-06-20] MEDS: DOCUSATE SODIUM 250MG CAPSULE PO SCH (08:30)
[2020-06-20] MEDS: APIXABAN 5 MG TABLET PO SCH ×2 (08:30→18:20)
[2020-06-20] MEDS: AMLODIPINE 10MG TABLET PO SCH (08:30)
[2020-06-20] MEDS: LOSARTAN POTASSIUM 50 MG TABLET PO SCH (08:30)
[2020-06-20] MEDS: AMIODARONE HCL 200 MG TABLET PO SCH (08:31)
[2020-06-20] MEDS ORDERED: MIDAZOLAM HCL 2 MG/2 ML VIAL ONE ×3 (10:19→11:23)
[2020-06-20] MEDS ORDERED: LIDOCAINE HCL 2% JELLY 5ML ONE (10:19)
[2020-06-20] MEDS ORDERED: FENTANYL CITRATE/PF 50MCG/ML 2ML VIAL ONE (10:19)
[2020-06-20] MEDS ORDERED: TETRACAINE/BENZOCAINE/BUTAMBEN 20 GM SPRAY MM ONE (10:20)
[2020-06-20 12:00] VITALS: BP 100/34
[2020-06-20 16:00] VITALS: BP 158/54
[2020-06-20 16:46] VITALS: BP 158/54
== END 2020-06-20 18:30 | disposition home or self-care (01) | DRG 205 ==
LOC: ER 11:58 → 5WST 13:22 → EDBEDREQ 13:41 → EDBEDREQTM 13:41 → ENRESERV 14:37
PROVIDERS: ADMIT Internal Medicine; ATTEND Internal Medicine
PROC: 05HY33Z Insertion of Infusion Device into Upper Vein, Percutaneous Approach (ICD-10-PCS; 2020-06-17)
PROC: 5A2204Z Restoration of Cardiac Rhythm, Single (ICD-10-PCS; principal; 2020-06-20)
DX: M94.0 Chondrocostal junction syndrome [Tietze] (principal); I50.23 Acute on chronic systolic (congestive) heart failure; I13.0 Hypertensive heart and chronic kidney disease with heart failure and stage 1 through stage 4 chronic kidney disease, or unspecified chronic kidney disease; N17.9 Acute kidney failure, unspecified; I48.92 Unspecified atrial flutter; I43 Cardiomyopathy in diseases classified elsewhere; I48.0 Paroxysmal atrial fibrillation; I27.20 Pulmonary hypertension, unspecified; E11.22 Type 2 diabetes mellitus with diabetic chronic kidney disease; N18.9 Chronic kidney disease, unspecified; Z20.822 Contact with and (suspected) exposure to COVID-19; E03.9 Hypothyroidism, unspecified; M10.9 Gout, unspecified; D64.9 Anemia, unspecified; E78.5 Hyperlipidemia, unspecified; E66.9 Obesity, unspecified; Z90.710 Acquired absence of both cervix and uterus; Z82.49 Family history of ischemic heart disease and other diseases of the circulatory system; Z79.01 Long term (current) use of anticoagulants; Z88.8 Allergy status to other drugs, medicaments and biological substances; Z79.1 Long term (current) use of non-steroidal anti-inflammatories (NSAID); Z79.899 Other long term (current) drug therapy; Z71.3 Dietary counseling and surveillance; Z68.39 Body mass index [BMI] 39.0-39.9, adult
CPT/HCPCS: 36415; 71045; 80048; 80053; 80305; 80320; 82962; 83735; 83880; 84439; 84443; 84484; 85025; 87426; 92960; 93005; 93306; 93312; 97162; 99291; J1650; J1940; J2250; J2270; J3010; G0480

== ENCOUNTER 2020-07-22 15:03 | Inpatient (IN) | payer MEDICARE, MEDICAID ==
[~2020-07-22] VITALS: Ht 165.1 cm; Wt 114.8 kg
[~2020-07-22 15:03] MED LIST changes: +AMIO100T4 PO; +DIGO125T80 PO; +GLIP10TA10 PO
[2020-07-22 22:26] LABS: BASOPHILS % 0.8 % (0.0-2.0); EOSINOPHILS % 3.6 % (0.0-5.0); HEMOGLOBIN. 10.3 g/dL (12.0-16.0); LYMPHOCYTES % 27.4 % (20.0-50.0); MEAN CORPUSCULAR HEMOGLOBIN 29.7 pg (28.0-32.0); MEAN CORPUSCULAR VOLUME 89.8 fL (81.0-99.0); MEAN PLATELET VOLUME 11.4 fl (7.4-10.4); MONOCYTES % 6.6 % (2.0-8.0); NEUTROPHILS % 61.6 % (40.0-76.0); PLATELET 243 x1000/uL (130-400); RED BLOOD CELL COUNT 3.45 mill/uL (4.2-5.4); RED CELL DISTRIBUTION WIDTH 17.6 % (11.6-14.6)
[2020-07-22 22:28] LABS: CHLORIDE 107 mEq/L (98-107)
[2020-07-22 23:38] LABS: BG BASE EXCESS -0.5 mmol/L (-2.0-2.0); BG CARBOXYHEMOGLOBIN 0.9 % (0.5-1.5); BG DEOXYHEMOGLOBIN 41.2 % (0.0-5.0); BG HCO3 ACT 27.5 mmol/L (22.0-26.0); BG METHEMOGLOBIN 0.1 % (0.0-1.5); BG OXYGEN SATURATION 58.4 % (92.0-98.5); BG OXYHEMOGLOBIN 57.8 % (94.0-97.0); BG PCO2 57.3 mmHg (35.0-45.0); BG PH 7.299 (7.350-7.450); BG PO2 33.4 mmHg (75.0-100.0); BG TOTAL HEMOGLOBIN 17.7 g/dL (12.0-18.0)
[2020-07-23] MEDS ORDERED: FUROSEMIDE 40MG/4ML VIAL IVP ONE (00:30)
[2020-07-23] MEDS ORDERED: DEXTROSE 50% WATER 50ML SYRINGE IV PRN (06:30)
[2020-07-23 06:39] VITALS: BP 130/67
[2020-07-23] MEDS: BLOOD SUGAR DIAGNOSTIC STRIP TEST SCH ×4 (07:14→21:24)
[2020-07-23] MEDS: INSULIN LISPRO 100 UNITS/ML SUBCUT SCH ×4 (07:50→21:00)
[2020-07-23 08:29] VITALS: BP 151/64
[2020-07-23 08:29] LABS: BASOPHILS % 0.7 % (0.0-2.0); EOSINOPHILS % 3.2 % (0.0-5.0); HEMATOCRIT. 29.5 % (36.0-48.0); HEMOGLOBIN. 9.7 g/dL (12.0-16.0); MEAN CORPUSCULAR HEMOGLOBIN 29.8 pg (28.0-32.0); MEAN CORPUSCULAR VOLUME 90.9 fL (81.0-99.0); NEUTROPHILS % 68.1 % (40.0-76.0); PLATELET 193 x1000/uL (130-400); RED BLOOD CELL COUNT 3.25 mill/uL (4.2-5.4); RED CELL DISTRIBUTION WIDTH 17.4 % (11.6-14.6)
[2020-07-23] MEDS: LOSARTAN POTASSIUM 100 MG TABLET PO SCH (09:00)
[2020-07-23] MEDS ORDERED: ATORVASTATIN CALCIUM 40MG TABLET PO SCH (09:00)
[2020-07-23] MEDS ORDERED: ENOXAPARIN 40MG/0.4ML SYR SUBCUT SCH (09:00)
[2020-07-23] MEDS: HYDRALAZINE HCL 50MG TABLET PO SCH ×3 (09:00→17:47)
[2020-07-23] MEDS: AMLODIPINE 10MG TABLET PO SCH (09:00)
[2020-07-23] MEDS ORDERED: VALSARTAN 160 MG PO SCH (09:00)
[2020-07-23] MEDS: APIXABAN 5 MG TABLET PO SCH ×2 (09:00→17:47)
[2020-07-23] MEDS: SPIRONOLACTONE 25MG TABLET PO SCH (09:00)
[2020-07-23] MEDS ORDERED: AMIODARONE HCL 200 MG TABLET PO SCH (10:00)
[2020-07-23] MEDS: HYDROCODONE/ACETAMINOPHEN 10/325MG TABLET PO PRN ×2 (11:16→21:17)
[2020-07-23] MEDS: ALLOPURINOL 100 MG TABLET PO SCH ×2 (11:16→17:47)
[2020-07-23] MEDS: AMIODARONE HCL 200 MG TABLET PO SCH (11:18)
[2020-07-23] MEDS: FERROUS SULFATE 325MG TABLET PO SCH ×3 (11:19→17:47)
[2020-07-23] MEDS: METOPROLOL TARTRATE 50MG TABLET PO SCH ×2 (11:20→21:18)
[2020-07-23] MEDS: PANTOPRAZOLE 40MG DR TABLET PO SCH (11:20)
[2020-07-23] MEDS: DOXAZOSIN MESYLATE 4MG TABLET PO SCH ×2 (11:21→17:47)
[2020-07-23] MEDS: DOCUSATE SODIUM SUGAR FREE 100MG/10ML UDC PO SCH ×2 (11:30→17:50)
[2020-07-23 12:15] VITALS: BP 112/58
[2020-07-23 16:44] VITALS: BP 122/60
[2020-07-23] MEDS: DIGOXIN 125MCG TABLET PO SCH (17:53)
[2020-07-23] MEDS: FUROSEMIDE 40MG/4ML VIAL IVP SCH (17:53)
[2020-07-23] MEDS ORDERED: METOLAZONE 2.5MG TABLET PO NR (18:30)
[2020-07-23 20:28] VITALS: BP 142/64
[2020-07-23] MEDS ORDERED: METOPROLOL TARTRATE 25MG TABLET PO SCH (21:00)
[2020-07-23] MEDS: ATORVASTATIN CALCIUM 40MG TABLET PO SCH (21:18)
[2020-07-24] VITALS: BP 123/66
[2020-07-24 04:00] VITALS: BP 121/53
[2020-07-24] MEDS: HYDROCODONE/ACETAMINOPHEN 10/325MG TABLET PO PRN (05:17)
[2020-07-24] MEDS: FUROSEMIDE 40MG/4ML VIAL IVP SCH ×2 (05:25→17:30)
[2020-07-24] MEDS: BLOOD SUGAR DIAGNOSTIC STRIP TEST SCH ×4 (06:37→21:54)
[2020-07-24] MEDS: INSULIN LISPRO 100 UNITS/ML SUBCUT SCH ×4 (07:50→21:00)
[2020-07-24 08:19] VITALS: BP 141/81
[2020-07-24] MEDS: DOCUSATE SODIUM SUGAR FREE 100MG/10ML UDC PO SCH ×2 (09:00→21:57)
[2020-07-24] MEDS: FERROUS SULFATE 325MG TABLET PO SCH ×3 (10:03→17:29)
[2020-07-24] MEDS: SPIRONOLACTONE 25MG TABLET PO SCH (10:03)
[2020-07-24] MEDS: DOXAZOSIN MESYLATE 4MG TABLET PO SCH ×2 (10:04→17:30)
[2020-07-24] MEDS: APIXABAN 5 MG TABLET PO SCH ×2 (10:04→17:30)
[2020-07-24] MEDS: LOSARTAN POTASSIUM 100 MG TABLET PO SCH (10:04)
[2020-07-24] MEDS: AMIODARONE HCL 200 MG TABLET PO SCH (10:04)
[2020-07-24] MEDS: ALLOPURINOL 100 MG TABLET PO SCH ×2 (10:04→17:30)
[2020-07-24] MEDS: PANTOPRAZOLE 40MG DR TABLET PO SCH (10:05)
[2020-07-24] MEDS: AMLODIPINE 10MG TABLET PO SCH (10:05)
[2020-07-24] MEDS: HYDRALAZINE HCL 100MG TABLET PO SCH ×3 (10:05→17:30)
[2020-07-24] MEDS: METOPROLOL TARTRATE 50MG TABLET PO SCH ×2 (10:05→21:00)
[2020-07-24 11:30] VITALS: BP 141/75
[2020-07-24] MEDS: ACETAMINOPHEN 325MG TABLET PO PRN (13:25)
[2020-07-24 15:37] VITALS: BP 127/72
[2020-07-24] MEDS: DIGOXIN 125MCG TABLET PO SCH (17:29)
[2020-07-24 20:00] VITALS: BP 110/57
[2020-07-24 20:18] LABS: BASOPHILS % 0.8 % (0.0-2.0); EOSINOPHILS % 2.7 % (0.0-5.0); LYMPHOCYTES % 29.9 % (20.0-50.0); MEAN CORPUSCULAR HEMOGLOBIN 30.3 pg (28.0-32.0); MEAN CORPUSCULAR VOLUME 90.5 fL (81.0-99.0); MEAN PLATELET VOLUME 9.5 fl (7.4-10.4); MONOCYTES % 7.4 % (2.0-8.0); NEUTROPHILS % 59.2 % (40.0-76.0); PLATELET 225 x1000/uL (130-400); RED BLOOD CELL COUNT 3.64 mill/uL (4.2-5.4); RED CELL DISTRIBUTION WIDTH 17.2 % (11.6-14.6)
[2020-07-24] MEDS: ATORVASTATIN CALCIUM 40MG TABLET PO SCH (21:57)
[2020-07-25] VITALS: BP 152/59
[2020-07-25] MEDS: ACETAMINOPHEN 325MG TABLET PO PRN ×2 (00:10→17:45)
[2020-07-25 04:00] VITALS: BP 128/60
[2020-07-25] MEDS: BLOOD SUGAR DIAGNOSTIC STRIP TEST SCH ×4 (06:27→21:56)
[2020-07-25] MEDS: FUROSEMIDE 40MG/4ML VIAL IVP SCH ×2 (06:30→17:44)
[2020-07-25] MEDS: INSULIN LISPRO 100 UNITS/ML SUBCUT SCH ×4 (07:50→21:56)
[2020-07-25 08:00] VITALS: BP 150/81
[2020-07-25] MEDS: AMLODIPINE 10MG TABLET PO SCH (08:57)
[2020-07-25] MEDS: FERROUS SULFATE 325MG TABLET PO SCH ×3 (08:57→17:45)
[2020-07-25] MEDS: LOSARTAN POTASSIUM 100 MG TABLET PO SCH (08:57)
[2020-07-25] MEDS: METOPROLOL TARTRATE 50MG TABLET PO SCH ×2 (08:57→21:54)
[2020-07-25] MEDS: HYDRALAZINE HCL 100MG TABLET PO SCH ×3 (08:57→17:45)
[2020-07-25] MEDS: ALLOPURINOL 100 MG TABLET PO SCH ×2 (08:57→17:44)
[2020-07-25] MEDS: FAMOTIDINE 20MG TABLET PO SCH (08:58)
[2020-07-25] MEDS: AMIODARONE HCL 200 MG TABLET PO SCH (08:58)
[2020-07-25] MEDS: SPIRONOLACTONE 25MG TABLET PO SCH (08:58)
[2020-07-25] MEDS: DOXAZOSIN MESYLATE 4MG TABLET PO SCH ×2 (08:59→17:45)
[2020-07-25] MEDS: DOCUSATE SODIUM SUGAR FREE 100MG/10ML UDC PO SCH (09:00)
[2020-07-25] MEDS: APIXABAN 5 MG TABLET PO SCH ×2 (09:05→17:45)
[2020-07-25 12:00] VITALS: BP 122/67
[2020-07-25] MEDS ORDERED: MAGNESIUM HYDROXIDE 400MG/5ML 30ML UDC PO NR (13:30)
[2020-07-25 16:00] VITALS: BP 120/70
[2020-07-25] MEDS: DIGOXIN 125MCG TABLET PO SCH (17:44)
[2020-07-25] MEDS: SODIUM CHLORIDE 0.9% 1,000 ML IV SCH (17:46)
[2020-07-25 19:48] LABS: BASOPHILS % 0.8 % (0.0-2.0); EOSINOPHILS % 2.4 % (0.0-5.0); HEMATOCRIT. 30.8 % (36.0-48.0); HEMOGLOBIN. 10.3 g/dL (12.0-16.0); LYMPHOCYTES % 26.2 % (20.0-50.0); MEAN CORPUSCULAR HEMOGLOBIN 30.1 pg (28.0-32.0); MEAN CORPUSCULAR VOLUME 90.5 fL (81.0-99.0); MEAN PLATELET VOLUME 10.3 fl (7.4-10.4); MONOCYTES % 7.4 % (2.0-8.0); NEUTROPHILS % 63.2 % (40.0-76.0); PLATELET 205 x1000/uL (130-400); RED BLOOD CELL COUNT 3.41 mill/uL (4.2-5.4); RED CELL DISTRIBUTION WIDTH 17.6 % (11.6-14.6)
[2020-07-25 19:57] LABS: INR 1.2; PARTIAL THROMBOPLASTIN TIME 34.8 sec (23.4-31.0); PROTHROMBIN TIME 12.5 sec (9.6-11.0)
[2020-07-25 20:45] VITALS: BP 120/67
[2020-07-25] MEDS: ATORVASTATIN CALCIUM 40MG TABLET PO SCH (21:54)
[2020-07-26 00:40] VITALS: BP 133/54
[2020-07-26 04:00] VITALS: BP 133/51
[2020-07-26] MEDS: FUROSEMIDE 40MG/4ML VIAL IVP SCH (05:14)
[2020-07-26] MEDS: BLOOD SUGAR DIAGNOSTIC STRIP TEST SCH ×4 (05:15→20:18)
[2020-07-26] MEDS: FERROUS SULFATE 325MG TABLET PO SCH ×3 (07:50→17:11)
[2020-07-26] MEDS: INSULIN LISPRO 100 UNITS/ML SUBCUT SCH ×4 (07:50→20:27)
[2020-07-26 08:10] VITALS: BP 145/58
[2020-07-26] MEDS: FAMOTIDINE 20MG TABLET PO SCH (08:27)
[2020-07-26] MEDS: APIXABAN 5 MG TABLET PO SCH ×2 (08:27→17:11)
[2020-07-26] MEDS: DOCUSATE SODIUM SUGAR FREE 100MG/10ML UDC PO SCH ×2 (08:27→17:11)
[2020-07-26] MEDS: AMIODARONE HCL 200 MG TABLET PO SCH (08:27)
[2020-07-26] MEDS: AMLODIPINE 10MG TABLET PO SCH (08:29)
[2020-07-26] MEDS: HYDRALAZINE HCL 100MG TABLET PO SCH ×3 (08:29→17:11)
[2020-07-26] MEDS: ALLOPURINOL 100 MG TABLET PO SCH ×2 (08:29→17:12)
[2020-07-26] MEDS: DOXAZOSIN MESYLATE 4MG TABLET PO SCH ×2 (08:29→17:11)
[2020-07-26] MEDS: LOSARTAN POTASSIUM 100 MG TABLET PO SCH (08:30)
[2020-07-26] MEDS: METOPROLOL TARTRATE 50MG TABLET PO SCH ×2 (08:30→20:26)
[2020-07-26] MEDS: SPIRONOLACTONE 25MG TABLET PO SCH (08:30)
[2020-07-26] MEDS: ACETAMINOPHEN 325MG TABLET PO PRN (09:41)
[2020-07-26] MEDS ORDERED: MIDAZOLAM HCL 2 MG/2 ML VIAL ONE ×3 (11:40→15:08)
[2020-07-26] MEDS ORDERED: FENTANYL CITRATE/PF 50MCG/ML 2ML VIAL ONE ×2 (11:40→14:27)
[2020-07-26] MEDS: SODIUM CHLORIDE 0.9% 1,000 ML IV SCH (12:30)
[2020-07-26] MEDS ORDERED: MIDAZOLAM HCL 5 MG/5 ML VIAL ONE (14:27)
[2020-07-26 16:00] VITALS: BP 119/62
[2020-07-26] MEDS: DIGOXIN 125MCG TABLET PO SCH (17:11)
[2020-07-26] MEDS ORDERED: FURO80TA87 MT ×2 (17:22)
[2020-07-26 20:00] VITALS: BP 120/53
[2020-07-26] MEDS: ATORVASTATIN CALCIUM 40MG TABLET PO SCH (20:26)
[2020-07-26] MEDS: HYDROCODONE/ACETAMINOPHEN 10/325MG TABLET PO PRN (21:59)
[2020-07-27] VITALS: BP 145/62
[2020-07-27 02:51] VITALS: BP 145/62
[2020-07-27 04:00] VITALS: BP 114/43
[2020-07-27] MEDS: BLOOD SUGAR DIAGNOSTIC STRIP TEST SCH ×2 (05:53→11:40)
[2020-07-27] MEDS: HYDROCODONE/ACETAMINOPHEN 10/325MG TABLET PO PRN (05:54)
[2020-07-27 07:25] LABS: DIGOXIN 1.8 ng/mL (0.9-2.0)
[2020-07-27] MEDS: INSULIN LISPRO 100 UNITS/ML SUBCUT SCH ×2 (07:50→11:41)
[2020-07-27 08:18] VITALS: BP 149/56
[2020-07-27] MEDS: FERROUS SULFATE 325MG TABLET PO SCH ×2 (08:22→12:09)
[2020-07-27] MEDS: HYDRALAZINE HCL 100MG TABLET PO SCH ×2 (08:22→12:20)
[2020-07-27] MEDS: DOXAZOSIN MESYLATE 4MG TABLET PO SCH (08:23)
[2020-07-27] MEDS: LOSARTAN POTASSIUM 100 MG TABLET PO SCH (08:23)
[2020-07-27] MEDS: FAMOTIDINE 20MG TABLET PO SCH (08:23)
[2020-07-27] MEDS: ALLOPURINOL 100 MG TABLET PO SCH (08:23)
[2020-07-27] MEDS: AMIODARONE HCL 200 MG TABLET PO SCH (08:23)
[2020-07-27] MEDS: APIXABAN 5 MG TABLET PO SCH (08:23)
[2020-07-27] MEDS: AMLODIPINE 10MG TABLET PO SCH (08:23)
[2020-07-27] MEDS: SPIRONOLACTONE 25MG TABLET PO SCH (08:23)
[2020-07-27] MEDS: SODIUM CHLORIDE 0.9% 1,000 ML IV SCH (08:25)
[2020-07-27] MEDS: DOCUSATE SODIUM SUGAR FREE 100MG/10ML UDC PO SCH (08:25)
[2020-07-27] MEDS: METOPROLOL TARTRATE 50MG TABLET PO SCH (08:26)
[2020-07-27 12:17] VITALS: BP 131/62
== END 2020-07-27 16:24 | disposition home or self-care (01) | DRG 291 ==
LOC: ER 15:03 → 6WST 22:21 → ENRESERV 07-23 03:37
PROVIDERS: ADMIT Internal Medicine; ATTEND Internal Medicine
PROC: 5A2204Z Restoration of Cardiac Rhythm, Single (ICD-10-PCS; principal; 2020-07-23)
DX: I13.0 Hypertensive heart and chronic kidney disease with heart failure and stage 1 through stage 4 chronic kidney disease, or unspecified chronic kidney disease (principal); I50.23 Acute on chronic systolic (congestive) heart failure; I48.92 Unspecified atrial flutter; Z68.41 Body mass index [BMI] 40.0-44.9, adult; I42.9 Cardiomyopathy, unspecified; E11.22 Type 2 diabetes mellitus with diabetic chronic kidney disease; E03.9 Hypothyroidism, unspecified; D64.9 Anemia, unspecified; N18.9 Chronic kidney disease, unspecified; I48.91 Unspecified atrial fibrillation; E78.5 Hyperlipidemia, unspecified; M10.9 Gout, unspecified; I27.20 Pulmonary hypertension, unspecified; E66.9 Obesity, unspecified; Z79.01 Long term (current) use of anticoagulants; Z88.8 Allergy status to other drugs, medicaments and biological substances; Z79.899 Other long term (current) drug therapy; Z79.84 Long term (current) use of oral hypoglycemic drugs; Z90.710 Acquired absence of both cervix and uterus; Z82.49 Family history of ischemic heart disease and other diseases of the circulatory system
CPT/HCPCS: 36415; 36600; 71045; 80048; 80053; 80061; 80162; 82375; 82805; 82962; 83036; 83735; 83880; 84484; 85025; 92960; 93005; 99291; J1815; J1940; J2250; J3010; J7030

== ENCOUNTER 2020-07-30 06:21 | Inpatient (IN) | payer MEDICARE, MEDICAID ==
[2020-07-30] VITALS (30 sets, daily range): BP systolic 89–126; BP diastolic 41–78
[~2020-07-30] VITALS: Ht 170.2 cm; Wt 114.1 kg
[~2020-07-30 06:21] MED LIST changes: -EMPA10TA PO; -FURO40TA5 PO; +FURO80TA87 MT
[2020-07-30] MEDS ORDERED: HEPARIN SODIUM 1,000 UNIT/1ML VIAL IV ONE (07:40)
[2020-07-30 08:35] LABS: BASOPHILS % 0.7 % (0.0-2.0); EOSINOPHILS % 2.7 % (0.0-5.0); HEMATOCRIT. 29.8 % (36.0-48.0); HEMOGLOBIN. 9.6 g/dL (12.0-16.0); LYMPHOCYTES % 17.4 % (20.0-50.0); MEAN CORPUSCULAR HEMOGLOBIN 29.2 pg (28.0-32.0); MEAN CORPUSCULAR VOLUME 90.5 fL (81.0-99.0); MEAN PLATELET VOLUME 9.1 fl (7.4-10.4); MONOCYTES % 8.9 % (2.0-8.0); NEUTROPHILS % 70.3 % (40.0-76.0); PLATELET 201 x1000/uL (130-400); RED BLOOD CELL COUNT 3.29 mill/uL (4.2-5.4); RED CELL DISTRIBUTION WIDTH 17.7 % (11.6-14.6)
[2020-07-30 08:57] LABS: CHLORIDE 103 mEq/L (98-107)
[2020-07-30 09:50] LABS: INR 1.1; PROTHROMBIN TIME 11.9 sec (9.6-11.0)
[2020-07-30] MEDS ORDERED: MIDAZOLAM HCL 2 MG/2 ML VIAL ONE (11:10)
[2020-07-30] MEDS ORDERED: ETOMIDATE 2MG/ML 10ML VIAL IV ONE (11:11)
[2020-07-30] MEDS ORDERED: LIDOCAINE HCL/PF 2% 20MG/ML 5 ML/VIAL ONE (11:11)
[2020-07-30] MEDS ORDERED: CEFAZOLIN SODIUM 1000MG/VIAL ONE (11:11)
[2020-07-30] MEDS ORDERED: SUCCINYLCHOLINE CHLORIDE 200MG/10ML IV ONE (11:22)
[2020-07-30] MEDS ORDERED: FENTANYL CITRATE/PF 50MCG/ML 2ML VIAL ONE ×2 (11:31→16:40)
[2020-07-30] MEDS ORDERED: HEPARIN 1,000 UNITS PREMIX 2,000 ML IV ONE (11:43)
[2020-07-30] MEDS ORDERED: LIDOCAINE HCL 1% 20ML VIAL (Pyxis) INJ ONE (11:45)
[2020-07-30] MEDS ORDERED: SODIUM CHLORIDE 0.9% 10ML VIAL ONE (11:56)
[2020-07-30] MEDS ORDERED: PHENYLEPHRINE HCL 10 MG/ML 1ML (IV VIAL) IV ONE (11:56)
[2020-07-30] MEDS ORDERED: ROCURONIUM BROMIDE 10MG/ML VIAL 5ML IV ONE (12:11)
[2020-07-30] MEDS ORDERED: HEPARIN 1000 UNITS/ML 10ML ONE (12:59)
[2020-07-30] MEDS ORDERED: PROTAMINE SULFATE 10MG/ML VIAL 25ML IV ONE (16:09)
[2020-07-30] MEDS ORDERED: NEOSTIGMINE METHYLSULFATE 1MG/ML 10 ML VIAL ONE (16:19)
[2020-07-30] MEDS ORDERED: GLYCOPYRROLATE 0.2 MG/ML 2ML VIAL ONE (16:19)
[2020-07-30] MEDS ORDERED: ONDANSETRON HCL 4MG/2ML INJ ONE (16:20)
[2020-07-30] MEDS ORDERED: METOCLOPRAMIDE HCL 10MG/2ML VIAL ONE (16:20)
[2020-07-30] MEDS ORDERED: MORPHINE SULFATE 2 MG/ML CPJ (NOT FOR IM USE) IV NR (19:15)
[2020-07-30] MEDS ORDERED: ZOLPIDEM TARTRATE 5MG TABLET PO PRN (22:45)
[2020-07-30] MEDS ORDERED: DEXTROSE 50% WATER 50ML SYRINGE IV PRN (22:45)
[2020-07-30] MEDS: INSULIN LISPRO 100 UNITS/ML SUBCUT SCH (23:00)
[2020-07-30] MEDS: BLOOD SUGAR DIAGNOSTIC STRIP TEST SCH (23:18)
[2020-07-30] MEDS: PANTOPRAZOLE 40MG DR TABLET PO SCH (23:23)
[2020-07-30] MEDS: ATORVASTATIN CALCIUM 40MG TABLET PO SCH (23:23)
[2020-07-31] VITALS (27 sets, daily range): BP systolic 76–122; BP diastolic 36–67
[2020-07-31] MEDS: MORPHINE SULFATE 2 MG/ML CPJ (NOT FOR IM USE) IV PRN ×4 (00:47→18:51)
[2020-07-31 05:32] LABS: HEMATOCRIT. 28.8 % (36.0-48.0); HEMOGLOBIN. 9.1 g/dL (12.0-16.0); MEAN CORPUSCULAR HEMOGLOBIN 29.2 pg (28.0-32.0); MEAN PLATELET VOLUME 10.1 fl (7.4-10.4); PLATELET 182 x1000/uL (130-400); RED BLOOD CELL COUNT 3.13 mill/uL (4.2-5.4); RED CELL DISTRIBUTION WIDTH 17.7 % (11.6-14.6)
[2020-07-31] MEDS: INSULIN LISPRO 100 UNITS/ML SUBCUT SCH ×3 (07:50→20:48)
[2020-07-31] MEDS: BLOOD SUGAR DIAGNOSTIC STRIP TEST SCH ×3 (08:02→20:14)
[2020-07-31] MEDS: APIXABAN 5 MG TABLET PO SCH ×2 (08:29→17:58)
[2020-07-31] MEDS: PANTOPRAZOLE 40MG DR TABLET PO SCH ×2 (08:29→20:14)
[2020-07-31] MEDS: HYDROCODONE/ACETAMINOPHEN 5/325MG TABLET PO PRN (15:20)
[2020-07-31] MEDS ORDERED: VANCOMYCIN 500 MG PREMIX 100 ML IV SCH (16:00)
[2020-07-31 16:07] LABS: CLARITY URINE CLEAR (CLEAR); COLOR URINE YELLOW (YELLOW); KETONES URINE NEGATIVE (NEGATIVE); LEUKOCYTE ESTERASE URINE 1+ (NEGATIVE); NITRITE URINE NEGATIVE (NEGATIVE); OCCULT BLOOD URINE TRACE (NEGATIVE); PH URINE 5.5 (4.5-8.0); PROTEIN URINE 1+ (NEGATIVE); SPECIFIC GRAVITY URINE 1.014 (1.005-1.030); UROBILINOGEN URINE 0.2 E.U./dL (0.2-1.0)
[2020-07-31 19:02] LABS: PLATELET ESTIMATE NORMAL
[2020-07-31] MEDS: ATORVASTATIN CALCIUM 40MG TABLET PO SCH (20:14)
[2020-07-31] MEDS: ACETAMINOPHEN 650MG/20.3ML UDC PO PRN (20:14)
[2020-07-31] MEDS: METHOCARBAMOL 750MG TABLET PO SCH (21:03)
[2020-07-31] MEDS: PIPERACILLIN/TAZOBACTAM 3.375 G in DEXT 5% WATER 100 ML IV SCH (21:04)
[2020-07-31] MEDS ORDERED: PIPERACILLIN/TAZOBACTAM 3.375 G/VIAL IV SCH (22:00)
[2020-08-01] VITALS (10 sets, daily range): BP systolic 107–126; BP diastolic 53–71
[2020-08-01] MEDS: MORPHINE SULFATE 2 MG/ML CPJ (NOT FOR IM USE) IV PRN ×4 (00:50→20:10)
[2020-08-01] MEDS: METHOCARBAMOL 750MG TABLET PO SCH ×3 (05:07→21:00)
[2020-08-01] MEDS: PIPERACILLIN/TAZOBACTAM 3.375 G in DEXT 5% WATER 100 ML IV SCH ×3 (05:07→20:11)
[2020-08-01] MEDS: BLOOD SUGAR DIAGNOSTIC STRIP TEST SCH ×4 (05:56→20:11)
[2020-08-01 06:45] LABS: BASOPHILS % 0.3 % (0.0-2.0); EOSINOPHILS % 1.3 % (0.0-5.0); HEMATOCRIT. 26.9 % (36.0-48.0); HEMOGLOBIN. 8.8 g/dL (12.0-16.0); LYMPHOCYTES % 9.1 % (20.0-50.0); MEAN CORPUSCULAR HEMOGLOBIN 29.9 pg (28.0-32.0); MEAN CORPUSCULAR VOLUME 91.5 fL (81.0-99.0); MEAN PLATELET VOLUME 10.5 fl (7.4-10.4); MONOCYTES % 9.4 % (2.0-8.0); NEUTROPHILS % 79.9 % (40.0-76.0); PLATELET 159 x1000/uL (130-400); RED BLOOD CELL COUNT 2.94 mill/uL (4.2-5.4); RED CELL DISTRIBUTION WIDTH 17.5 % (11.6-14.6)
[2020-08-01] MEDS: INSULIN LISPRO 100 UNITS/ML SUBCUT SCH ×4 (06:50→21:01)
[2020-08-01] MEDS: APIXABAN 5 MG TABLET PO SCH ×2 (09:24→18:31)
[2020-08-01] MEDS: PANTOPRAZOLE 40MG DR TABLET PO SCH ×2 (09:24→20:11)
[2020-08-01] MEDS ORDERED: FUROSEMIDE 100MG/10ML VIAL IVP NR (16:45)
[2020-08-01] MEDS ORDERED: VANCOMYCIN 500 MG PREMIX 100 ML IV SCH (18:00)
[2020-08-01] MEDS: VANCOMYCIN 750 MG PREMIX 150 ML IV SCH (18:31)
[2020-08-01] MEDS: ATORVASTATIN CALCIUM 40MG TABLET PO SCH (20:11)
[2020-08-02] VITALS (10 sets, daily range): BP systolic 107–140; BP diastolic 58–74
[2020-08-02] MEDS: ACETAMINOPHEN 650MG/20.3ML UDC PO PRN (01:16)
[2020-08-02] MEDS: PIPERACILLIN/TAZOBACTAM 3.375 G in DEXT 5% WATER 100 ML IV SCH ×3 (03:29→20:51)
[2020-08-02] MEDS: MORPHINE SULFATE 2 MG/ML CPJ (NOT FOR IM USE) IV PRN ×2 (03:32→09:41)
[2020-08-02] MEDS: BLOOD SUGAR DIAGNOSTIC STRIP TEST SCH ×4 (05:48→20:49)
[2020-08-02] MEDS: INSULIN LISPRO 100 UNITS/ML SUBCUT SCH ×4 (06:22→20:50)
[2020-08-02] MEDS: METHOCARBAMOL 750MG TABLET PO SCH ×3 (06:22→21:00)
[2020-08-02 06:47] LABS: BASOPHILS % 0.3 % (0.0-2.0); EOSINOPHILS % 1.9 % (0.0-5.0); HEMATOCRIT. 25.8 % (36.0-48.0); HEMOGLOBIN. 8.5 g/dL (12.0-16.0); MEAN CORPUSCULAR VOLUME 91.5 fL (81.0-99.0); NEUTROPHILS % 76.8 % (40.0-76.0); PLATELET 170 x1000/uL (130-400); RED BLOOD CELL COUNT 2.81 mill/uL (4.2-5.4); RED CELL DISTRIBUTION WIDTH 17.7 % (11.6-14.6)
[2020-08-02] MEDS: APIXABAN 5 MG TABLET PO SCH ×2 (09:34→16:52)
[2020-08-02] MEDS: PANTOPRAZOLE 40MG DR TABLET PO SCH (09:34)
[2020-08-02] MEDS: ZINC SULFATE 220 MG ( 50 ) CAPSULE PO SCH (09:34)
[2020-08-02] MEDS: ASCORBIC ACID 500 MG TABLET PO SCH (09:34)
[2020-08-02] MEDS: HYDROCODONE/ACETAMINOPHEN 5/325MG TABLET PO PRN ×3 (15:07→21:01)
[2020-08-02] MEDS: VANCOMYCIN 750 MG PREMIX 150 ML IV SCH (16:52)
[2020-08-02] MEDS: ATORVASTATIN CALCIUM 40MG TABLET PO SCH (20:51)
[2020-08-02] MEDS: AMIODARONE HCL 200 MG TABLET PO SCH (20:52)
[2020-08-02] MEDS: LIDOCAINE 5% PATCH TOP SCH (20:58)
[2020-08-02] MEDS ORDERED: AMIODARONE HCL 200 MG TABLET PO SCH (21:00)
[2020-08-03] VITALS (12 sets, daily range): BP systolic 92–142; BP diastolic 48–71
[2020-08-03] MEDS: PIPERACILLIN/TAZOBACTAM 3.375 G in DEXT 5% WATER 100 ML IV SCH ×3 (03:37→20:09)
[2020-08-03] MEDS: FAMOTIDINE 20MG TABLET PO SCH (05:21)
[2020-08-03] MEDS: METHOCARBAMOL 750MG TABLET PO SCH ×3 (05:21→21:21)
[2020-08-03] MEDS: HYDROCODONE/ACETAMINOPHEN 5/325MG TABLET PO PRN ×3 (05:22→17:29)
[2020-08-03] MEDS: BLOOD SUGAR DIAGNOSTIC STRIP TEST SCH ×4 (05:30→20:27)
[2020-08-03] MEDS: INSULIN LISPRO 100 UNITS/ML SUBCUT SCH ×4 (06:50→20:34)
[2020-08-03] MEDS: ZINC SULFATE 220 MG ( 50 ) CAPSULE PO SCH (08:25)
[2020-08-03] MEDS: ASCORBIC ACID 500 MG TABLET PO SCH (08:25)
[2020-08-03] MEDS: AMIODARONE HCL 200 MG TABLET PO SCH ×2 (08:26→20:37)
[2020-08-03] MEDS: APIXABAN 5 MG TABLET PO SCH ×2 (09:00→17:25)
[2020-08-03] MEDS: VANCOMYCIN 1 G PREMIX 200 ML IV SCH (15:28)
[2020-08-03] MEDS: LIDOCAINE 5% PATCH TOP SCH (17:26)
[2020-08-03] MEDS: MAGNESIUM HYDROXIDE 400MG/5ML 30ML UDC PO PRN (17:52)
[2020-08-03] MEDS: FUROSEMIDE 40MG/4ML VIAL IVP SCH (18:42)
[2020-08-03] MEDS ORDERED: GUAIFENESIN/CODEINE 200-20MG/10ML UDC PO PRN (19:00)
[2020-08-03] MEDS: ATORVASTATIN CALCIUM 40MG TABLET PO SCH (20:37)
[2020-08-04] VITALS (12 sets, daily range): BP systolic 103–142; BP diastolic 48–85
[2020-08-04] MEDS: HYDROCODONE/ACETAMINOPHEN 5/325MG TABLET PO PRN (01:12)
[2020-08-04] MEDS: PIPERACILLIN/TAZOBACTAM 3.375 G in DEXT 5% WATER 100 ML IV SCH ×3 (03:14→20:29)
[2020-08-04] MEDS: METHOCARBAMOL 750MG TABLET PO SCH (05:28)
[2020-08-04] MEDS: FAMOTIDINE 20MG TABLET PO SCH (05:52)
[2020-08-04] MEDS: BLOOD SUGAR DIAGNOSTIC STRIP TEST SCH ×4 (05:56→20:37)
[2020-08-04 06:29] LABS: BASOPHILS % 0.8 % (0.0-2.0); EOSINOPHILS % 4.5 % (0.0-5.0); HEMATOCRIT. 28.7 % (36.0-48.0); HEMOGLOBIN. 9.3 g/dL (12.0-16.0); LYMPHOCYTES % 19.3 % (20.0-50.0); MEAN CORPUSCULAR HEMOGLOBIN 29.3 pg (28.0-32.0); MEAN CORPUSCULAR VOLUME 90.7 fL (81.0-99.0); MEAN PLATELET VOLUME 10.1 fl (7.4-10.4); MONOCYTES % 10.5 % (2.0-8.0); NEUTROPHILS % 64.9 % (40.0-76.0); PLATELET 264 x1000/uL (130-400); RED BLOOD CELL COUNT 3.16 mill/uL (4.2-5.4); RED CELL DISTRIBUTION WIDTH 17.2 % (11.6-14.6)
[2020-08-04] MEDS: INSULIN LISPRO 100 UNITS/ML SUBCUT SCH ×4 (06:30→20:37)
[2020-08-04] MEDS: FUROSEMIDE 40MG/4ML VIAL IVP SCH ×2 (08:19→16:45)
[2020-08-04] MEDS: ZINC SULFATE 220 MG ( 50 ) CAPSULE PO SCH (08:20)
[2020-08-04] MEDS: ASCORBIC ACID 500 MG TABLET PO SCH (08:20)
[2020-08-04] MEDS: APIXABAN 5 MG TABLET PO SCH ×2 (08:20→16:45)
[2020-08-04] MEDS: AMIODARONE HCL 200 MG TABLET PO SCH (08:20)
[2020-08-04] MEDS: MAGNESIUM HYDROXIDE 400MG/5ML 30ML UDC PO PRN (09:55)
[2020-08-04] MEDS ORDERED: ONDANSETRON HCL 4MG/2ML INJ IV PRN (10:15)
[2020-08-04] MEDS: MORPHINE SULFATE 2 MG/ML CPJ (NOT FOR IM USE) IV PRN (15:01)
[2020-08-04] MEDS: VANCOMYCIN 1 G PREMIX 200 ML IV SCH (15:06)
[2020-08-04] MEDS: LIDOCAINE 5% PATCH TOP SCH (16:45)
[2020-08-04] MEDS ORDERED: AMIODARONE HCL 200 MG TABLET PO SCH (17:20)
[2020-08-04] MEDS: ATORVASTATIN CALCIUM 40MG TABLET PO SCH (20:40)
[2020-08-04] MEDS: PANTOPRAZOLE 40MG DR TABLET PO SCH (20:40)
[2020-08-04] MEDS ORDERED: PANTOPRAZOLE 40MG DR TABLET PO SCH (21:00)
[2020-08-05] VITALS (11 sets, daily range): BP systolic 108–145; BP diastolic 54–104
[2020-08-05] MEDS: HYDROCODONE/ACETAMINOPHEN 5/325MG TABLET PO PRN ×3 (01:36→20:40)
[2020-08-05] MEDS: PIPERACILLIN/TAZOBACTAM 3.375 G in DEXT 5% WATER 100 ML IV SCH ×3 (03:59→20:39)
[2020-08-05] MEDS: PANTOPRAZOLE 40MG DR TABLET PO SCH ×2 (06:19→20:39)
[2020-08-05] MEDS: INSULIN LISPRO 100 UNITS/ML SUBCUT SCH ×4 (06:32→20:22)
[2020-08-05] MEDS: BLOOD SUGAR DIAGNOSTIC STRIP TEST SCH ×4 (06:32→20:21)
[2020-08-05] MEDS ORDERED: AMIODARONE HCL 200 MG TABLET PO SCH (07:30)
[2020-08-05] MEDS: APIXABAN 5 MG TABLET PO SCH ×2 (09:38→17:58)
[2020-08-05] MEDS: FUROSEMIDE 40MG/4ML VIAL IVP SCH ×2 (09:39→17:58)
[2020-08-05] MEDS: ASCORBIC ACID 500 MG TABLET PO SCH (09:39)
[2020-08-05] MEDS: ZINC SULFATE 220 MG ( 50 ) CAPSULE PO SCH (09:39)
[2020-08-05] MEDS: ACETAMINOPHEN 650MG/20.3ML UDC PO PRN (12:01)
[2020-08-05] MEDS: MAGNESIUM HYDROXIDE 400MG/5ML 30ML UDC PO PRN (13:41)
[2020-08-05] MEDS: VANCOMYCIN 1 G PREMIX 200 ML IV SCH (15:35)
[2020-08-05] MEDS ORDERED: FURO-151 MT (17:34)
[2020-08-05] MEDS ORDERED: METO-539 MT (17:35)
[2020-08-05] MEDS: LIDOCAINE 5% PATCH TOP SCH (17:59)
[2020-08-05 19:45] LABS: BASOPHILS % 0.9 % (0.0-2.0); EOSINOPHILS % 3.6 % (0.0-5.0); HEMATOCRIT. 25.8 % (36.0-48.0); HEMOGLOBIN. 8.8 g/dL (12.0-16.0); LYMPHOCYTES % 19.6 % (20.0-50.0); MEAN CORPUSCULAR HEMOGLOBIN 30.8 pg (28.0-32.0); MEAN CORPUSCULAR VOLUME 90.6 fL (81.0-99.0); MEAN PLATELET VOLUME 9.3 fl (7.4-10.4); MONOCYTES % 10.8 % (2.0-8.0); NEUTROPHILS % 65.1 % (40.0-76.0); PLATELET 252 x1000/uL (130-400); RED BLOOD CELL COUNT 2.85 mill/uL (4.2-5.4); RED CELL DISTRIBUTION WIDTH 16.9 % (11.6-14.6)
[2020-08-05 20:21] LABS: CHLORIDE 100 mEq/L (98-107)
[2020-08-05] MEDS: ATORVASTATIN CALCIUM 40MG TABLET PO SCH (20:39)
[2020-08-05] MEDS: SODIUM CHLORIDE 0.9% 1,000 ML IV SCH (20:42)
[2020-08-06] VITALS (12 sets, daily range): BP systolic 98–140; BP diastolic 51–73
[2020-08-06] MEDS: HYDROCODONE/ACETAMINOPHEN 5/325MG TABLET PO PRN ×3 (03:43→17:49)
[2020-08-06 05:55] LABS: INR 1.1; PROTHROMBIN TIME 12.1 sec (9.6-11.0)
[2020-08-06] MEDS: PANTOPRAZOLE 40MG DR TABLET PO SCH ×2 (06:20→20:38)
[2020-08-06 06:30] LABS: BASOPHILS % 0.7 % (0.0-2.0); EOSINOPHILS % 3.6 % (0.0-5.0); HEMATOCRIT. 25.9 % (36.0-48.0); HEMOGLOBIN. 8.6 g/dL (12.0-16.0); LYMPHOCYTES % 17.9 % (20.0-50.0); MEAN CORPUSCULAR HEMOGLOBIN 30.3 pg (28.0-32.0); MEAN CORPUSCULAR VOLUME 91.3 fL (81.0-99.0); MEAN PLATELET VOLUME 9.3 fl (7.4-10.4); MONOCYTES % 9.9 % (2.0-8.0); NEUTROPHILS % 67.9 % (40.0-76.0); PLATELET 246 x1000/uL (130-400); RED BLOOD CELL COUNT 2.83 mill/uL (4.2-5.4); RED CELL DISTRIBUTION WIDTH 16.9 % (11.6-14.6)
[2020-08-06] MEDS: INSULIN LISPRO 100 UNITS/ML SUBCUT SCH ×4 (06:50→20:39)
[2020-08-06] MEDS: BLOOD SUGAR DIAGNOSTIC STRIP TEST SCH ×4 (07:00→20:39)
[2020-08-06] MEDS: ASCORBIC ACID 500 MG TABLET PO SCH (08:36)
[2020-08-06] MEDS: ZINC SULFATE 220 MG ( 50 ) CAPSULE PO SCH (08:36)
[2020-08-06] MEDS: APIXABAN 5 MG TABLET PO SCH ×3 (09:00→17:46)
[2020-08-06] MEDS ORDERED: FENTANYL CITRATE/PF 50MCG/ML 2ML VIAL ONE (12:44)
[2020-08-06] MEDS ORDERED: MIDAZOLAM HCL 2 MG/2 ML VIAL ONE ×2 (12:44→13:01)
[2020-08-06] MEDS: SODIUM CHLORIDE 0.9% 1,000 ML IV SCH (13:31)
[2020-08-06] MEDS: LIDOCAINE 5% PATCH TOP SCH (16:00)
[2020-08-06] MEDS: ATORVASTATIN CALCIUM 40MG TABLET PO SCH (20:38)
[2020-08-07] VITALS (10 sets, daily range): BP systolic 121–147; BP diastolic 54–78
[2020-08-07] MEDS: HYDROCODONE/ACETAMINOPHEN 5/325MG TABLET PO PRN ×2 (00:56→08:07)
[2020-08-07] MEDS: PANTOPRAZOLE 40MG DR TABLET PO SCH (06:20)
[2020-08-07] MEDS: SODIUM CHLORIDE 0.9% 1,000 ML IV SCH (06:20)
[2020-08-07] MEDS: BLOOD SUGAR DIAGNOSTIC STRIP TEST SCH ×2 (06:20→12:19)
[2020-08-07] MEDS: INSULIN LISPRO 100 UNITS/ML SUBCUT SCH ×2 (07:06→12:20)
[2020-08-07 07:10] LABS: BASOPHILS % 0.7 % (0.0-2.0); EOSINOPHILS % 3.7 % (0.0-5.0); HEMATOCRIT. 23.7 % (36.0-48.0); HEMOGLOBIN. 7.8 g/dL (12.0-16.0); MEAN CORPUSCULAR HEMOGLOBIN 29.9 pg (28.0-32.0); MEAN CORPUSCULAR VOLUME 91.2 fL (81.0-99.0); MEAN PLATELET VOLUME 9.2 fl (7.4-10.4); MONOCYTES % 9.6 % (2.0-8.0); PLATELET 282 x1000/uL (130-400); RED CELL DISTRIBUTION WIDTH 17.3 % (11.6-14.6)
[2020-08-07] MEDS: APIXABAN 5 MG TABLET PO SCH (08:06)
[2020-08-07] MEDS: ZINC SULFATE 220 MG ( 50 ) CAPSULE PO SCH (08:07)
[2020-08-07] MEDS: ASCORBIC ACID 500 MG TABLET PO SCH (08:07)
[2020-08-07] MEDS: LIDOCAINE 5% PATCH TOP SCH (09:00)
== END 2020-08-07 16:35 | disposition home health service (06) | DRG 853 ==
LOC: CCL 06:21 → CVICU 06:22 → 3WST 07-31 16:40
PROVIDERS: ADMIT Specialist; ATTEND Specialist
PROC: 02583ZZ Destruction of Conduction Mechanism, Percutaneous Approach (ICD-10-PCS; principal; 2020-07-30)
PROC: 02K83ZZ Map Conduction Mechanism, Percutaneous Approach (ICD-10-PCS; 2020-07-30)
PROC: 5A2204Z Restoration of Cardiac Rhythm, Single (ICD-10-PCS; 2020-08-06)
DX: A41.9 Sepsis, unspecified organism (principal); J96.91 Respiratory failure, unspecified with hypoxia; J18.9 Pneumonia, unspecified organism; I48.92 Unspecified atrial flutter; I50.22 Chronic systolic (congestive) heart failure; I13.0 Hypertensive heart and chronic kidney disease with heart failure and stage 1 through stage 4 chronic kidney disease, or unspecified chronic kidney disease; I69.354 Hemiplegia and hemiparesis following cerebral infarction affecting left non-dominant side; J44.0 Chronic obstructive pulmonary disease with (acute) lower respiratory infection; N17.9 Acute kidney failure, unspecified; N39.0 Urinary tract infection, site not specified; I42.9 Cardiomyopathy, unspecified; I48.19 Other persistent atrial fibrillation; R65.20 Severe sepsis without septic shock; I48.0 Paroxysmal atrial fibrillation; E03.9 Hypothyroidism, unspecified; I27.20 Pulmonary hypertension, unspecified; N18.9 Chronic kidney disease, unspecified; E78.5 Hyperlipidemia, unspecified; E11.22 Type 2 diabetes mellitus with diabetic chronic kidney disease; E66.01 Morbid (severe) obesity due to excess calories; M51.9 Unspecified thoracic, thoracolumbar and lumbosacral intervertebral disc disorder; Z20.822 Contact with and (suspected) exposure to COVID-19; R13.10 Dysphagia, unspecified; M54.5 Low back pain; M75.101 Unspecified rotator cuff tear or rupture of right shoulder, not specified as traumatic; M19.90 Unspecified osteoarthritis, unspecified site; M25.819 Other specified joint disorders, unspecified shoulder; M75.01 Adhesive capsulitis of right shoulder; Z68.39 Body mass index [BMI] 39.0-39.9, adult; Z90.710 Acquired absence of both cervix and uterus; Z90.49 Acquired absence of other specified parts of digestive tract; Z79.01 Long term (current) use of anticoagulants; Z79.84 Long term (current) use of oral hypoglycemic drugs; Z79.899 Other long term (current) drug therapy
CPT/HCPCS: 36415; 70551; 71045; 73030; 73221; 73502; 74176; 80048; 80053; 80202; 81003; 82962; 83036; 84145; 85025; 85347; 87426; 92610; 92960; 93005; 93306; 93308; 93613; 93656; 93662; 97110; 97162; 97166; A6261; C1730; C1731; C1732; C1759; C1893; J0330; J0690; J1644; J1815; J1940; J2250; J2270; J2370; J2405; J2543; J2710; J2720; J2765; J3010; J3370; J3490; J7030; J7040; J7060; A4315

== ENCOUNTER 2021-07-27 11:32 | Inpatient (IN) | payer MEDICARE, MEDICAID ==
[~2021-07-27] VITALS: Ht 170.2 cm; Wt 126.6 kg
[~2021-07-27 11:32] MED LIST changes: -AMIO100T4 PO; +CLOT15CR27 TP; -DOXA4TAB3 PO; +DOXA8TAB81 PO; +FURO-151 MT; -FURO80TA87 MT; -GLIP10TA10 PO; +LEVO25TA7 PO; +LORA10TA7 PO; -METO-385 PO; +METO-539 MT
[2021-07-27 14:47] LABS: BASOPHILS % 0.9 % (0.0-2.0); EOSINOPHILS % 5.2 % (0.0-5.0); HEMATOCRIT. 31.3 % (36.0-48.0); HEMOGLOBIN. 10.3 g/dL (12.0-16.0); LYMPHOCYTES % 25.4 % (20.0-50.0); MEAN CORPUSCULAR HEMOGLOBIN 30.9 pg (28.0-32.0); MEAN CORPUSCULAR VOLUME 93.6 fL (81.0-99.0); MEAN PLATELET VOLUME 10.4 fl (7.4-10.4); MONOCYTES % 5.4 % (2.0-8.0); NEUTROPHILS % 63.1 % (40.0-76.0); PLATELET 241 x1000/uL (130-400); RED BLOOD CELL COUNT 3.34 mill/uL (4.2-5.4); RED CELL DISTRIBUTION WIDTH 16.1 % (11.6-14.6)
[2021-07-27 14:52] LABS: CHLORIDE 106 mEq/L (98-107)
[2021-07-27 21:30] VITALS: BP 143/62
[2021-07-27] MEDS ORDERED: DEXTROSE 50% WATER 50ML SYRINGE IV PRN (23:00)
[2021-07-27] MEDS ORDERED: CLONIDINE 0.1MG TABLET PO PRN (23:00)
[2021-07-27] MEDS ORDERED: NALOXONE HCL 0.4 MG/ML 1ML VIAL IV PRN (23:15)
[2021-07-27] MEDS: MORPHINE SULFATE 2 MG/ML CPJ (NOT FOR IM USE) IV PRN (23:53)
[2021-07-28] VITALS: BP 150/63
[2021-07-28 04:00] VITALS: BP 137/58
[2021-07-28] MEDS: BLOOD SUGAR DIAGNOSTIC STRIP TEST SCH ×4 (05:45→21:07)
[2021-07-28] MEDS: INSULIN LISPRO 100 UNITS/ML SUBCUT SCH ×4 (05:45→21:00)
[2021-07-28] MEDS: MORPHINE SULFATE 2 MG/ML CPJ (NOT FOR IM USE) IV PRN ×2 (05:45→10:35)
[2021-07-28 07:17] LABS: CHLORIDE 105 mEq/L (98-107)
[2021-07-28 07:26] LABS: CREATINE KINASE 128 IU/L (26-192)
[2021-07-28 07:27] LABS: CREATINE KINASE MB FRACTION < 1.0 ng/mL (0.5-3.6)
[2021-07-28 08:15] LABS: BASOPHILS % 0.7 % (0.0-2.0); EOSINOPHILS % 6.1 % (0.0-5.0); HEMATOCRIT. 28.8 % (36.0-48.0); HEMOGLOBIN. 9.4 g/dL (12.0-16.0); LYMPHOCYTES % 31.4 % (20.0-50.0); MEAN CORPUSCULAR HEMOGLOBIN 30.8 pg (28.0-32.0); MEAN PLATELET VOLUME 10.1 fl (7.4-10.4); NEUTROPHILS % 54.8 % (40.0-76.0); PLATELET 202 x1000/uL (130-400); RED BLOOD CELL COUNT 3.06 mill/uL (4.2-5.4); RED CELL DISTRIBUTION WIDTH 15.8 % (11.6-14.6)
[2021-07-28 08:23] VITALS: BP 153/58
[2021-07-28 10:45] LABS: *AMPHETAMINES SCREEN URINE NEGATIVE (NEGATIVE); CANNABINOID URINE SCREEN NEGATIVE (NEGATIVE); METHADONE URINE SCREEN NEGATIVE (NEGATIVE); OPIATES URINE SCREEN PRESUMTIVE POSITIVE (NEGATIVE); PHENCYCLIDINE URINE SCREEN NEGATIVE (NEGATIVE)
[2021-07-28 10:46] LABS: *BARBITURATES SCREEN URINE NEGATIVE (NEGATIVE); *BENZODIAZEPINES SCREEN URINE NEGATIVE (NEGATIVE); *COCAINE SCREEN URINE NEGATIVE (NEGATIVE)
[2021-07-28 12:28] VITALS: BP 155/67
[2021-07-28] MEDS: AMLODIPINE 10MG TABLET PO SCH (12:41)
[2021-07-28 14:21] LABS: CREATINE KINASE 126 IU/L (26-192)
[2021-07-28 14:22] LABS: CREATINE KINASE MB FRACTION 1.1 ng/mL (0.5-3.6)
[2021-07-28 16:23] VITALS: BP 117/57
[2021-07-28] MEDS: APIXABAN 5 MG TABLET PO SCH (16:48)
[2021-07-28] MEDS: HYDROCODONE/ACETAMINOPHEN 5/325MG TABLET PO PRN ×2 (16:48→22:33)
[2021-07-28] MEDS: FUROSEMIDE 100MG/10ML VIAL IVP SCH (18:23)
[2021-07-28 20:00] VITALS: BP 136/64
[2021-07-28 21:29] LABS: CREATINE KINASE 164 IU/L (26-192)
[2021-07-28 21:31] LABS: CREATINE KINASE MB FRACTION < 1.0 ng/mL (0.5-3.6)
[2021-07-29] VITALS: BP 141/61
[2021-07-29 04:00] VITALS: BP 153/67
[2021-07-29] MEDS: HYDROCODONE/ACETAMINOPHEN 5/325MG TABLET PO PRN ×2 (04:15→11:11)
[2021-07-29] MEDS: BLOOD SUGAR DIAGNOSTIC STRIP TEST SCH ×2 (07:13→12:20)
[2021-07-29] MEDS: INSULIN LISPRO 100 UNITS/ML SUBCUT SCH (07:50)
[2021-07-29 08:03] VITALS: BP 152/58
[2021-07-29] MEDS: FUROSEMIDE 100MG/10ML VIAL IVP SCH (08:40)
[2021-07-29] MEDS: AMLODIPINE 10MG TABLET PO SCH (08:40)
[2021-07-29] MEDS: APIXABAN 5 MG TABLET PO SCH (08:40)
[2021-07-29 12:00] VITALS: BP 148/64
[2021-07-29 12:32] VITALS: BP 135/75
== END 2021-07-29 14:12 | disposition home or self-care (01) | DRG 291 ==
LOC: ER 11:46 → 6WST 15:09 → EDBEDREQ 15:11 → EDBEDREQTM 15:11
PROVIDERS: ADMIT Internal Medicine Nephrology; ATTEND Internal Medicine Nephrology
DX: I13.0 Hypertensive heart and chronic kidney disease with heart failure and stage 1 through stage 4 chronic kidney disease, or unspecified chronic kidney disease (principal); I50.23 Acute on chronic systolic (congestive) heart failure; Z68.41 Body mass index [BMI] 40.0-44.9, adult; I48.91 Unspecified atrial fibrillation; I27.20 Pulmonary hypertension, unspecified; E66.9 Obesity, unspecified; E78.5 Hyperlipidemia, unspecified; N18.9 Chronic kidney disease, unspecified; E11.22 Type 2 diabetes mellitus with diabetic chronic kidney disease; Z88.8 Allergy status to other drugs, medicaments and biological substances; Z79.1 Long term (current) use of non-steroidal anti-inflammatories (NSAID); Z79.899 Other long term (current) drug therapy; Z82.49 Family history of ischemic heart disease and other diseases of the circulatory system; Z90.710 Acquired absence of both cervix and uterus; Z98.891 History of uterine scar from previous surgery; Z90.49 Acquired absence of other specified parts of digestive tract
CPT/HCPCS: 36415; 71045; 80048; 80053; 80305; 82550; 82553; 82962; 83880; 84132; 84484; 85025; 93005; 93306; 99285; J1940; J2270

== ENCOUNTER 2021-11-03 13:32 | Inpatient (IN) | payer MEDICARE, MEDICAID ==
[~2021-11-03] VITALS: Ht 167.6 cm; Wt 125.2 kg
[~2021-11-03 13:32] MED LIST changes: -DIGO125T80 PO
[2021-11-03] MEDS ORDERED: SODIUM CHLORIDE 0.9% 1,000 ML IV ONE (16:15)
[2021-11-03] MEDS ORDERED: ASPIRIN 81MG TABLET PO ONE (16:15)
[2021-11-03 20:51] LABS: BASOPHILS % 1.2 % (0.0-2.0); EOSINOPHILS % 3.4 % (0.0-5.0); HEMATOCRIT. 34.5 % (36.0-48.0); HEMOGLOBIN. 11.1 g/dL (12.0-16.0); LYMPHOCYTES % 30.7 % (20.0-50.0); MEAN CORPUSCULAR HEMOGLOBIN 30.5 pg (28.0-32.0); MEAN CORPUSCULAR VOLUME 95.1 fL (81.0-99.0); MEAN PLATELET VOLUME 9.1 fl (7.4-10.4); MONOCYTES % 7.7 % (2.0-8.0); PLATELET 273 x1000/uL (130-400); RED BLOOD CELL COUNT 3.63 mill/uL (4.2-5.4); RED CELL DISTRIBUTION WIDTH 16.6 % (11.6-14.6)
[2021-11-03 21:00] LABS: CHLORIDE 104 mEq/L (98-107)
[2021-11-03 21:04] LABS: D-DIMER 0.62 mg/L FEU (<0.50); INR 1.1; PARTIAL THROMBOPLASTIN TIME 31.4 sec (23.4-31.0); PROTHROMBIN TIME 11.7 sec (9.6-11.0)
[2021-11-03] MEDS: NITROGLYCERIN 0.4MG TABLET SL SL PRN (21:26)
[2021-11-03] MEDS: ASPIRIN 81MG TABLET PO NR ×2 (21:26→23:02)
[2021-11-04] MEDS ORDERED: NALOXONE HCL 0.4MG/ML VIAL IV PRN (05:45)
[2021-11-04] MEDS: HYDROCODONE/ACETAMINOPHEN 10/325MG TABLET PO PRN ×2 (06:05→10:36)
[2021-11-04] MEDS: NITROGLYCERIN 0.4MG TABLET SL SL PRN (07:48)
[2021-11-04] MEDS ORDERED: ONDANSETRON HCL 4MG/2ML INJ IV PRN (08:00)
[2021-11-04] MEDS ORDERED: ACETAMINOPHEN 325MG TABLET PO PRN (08:00)
[2021-11-04 08:30] VITALS: BP 128/71
[2021-11-04 09:00] VITALS: BP 128/71
[2021-11-04] MEDS: APIXABAN 5 MG TABLET PO SCH ×2 (09:02→17:23)
[2021-11-04] MEDS: METOPROLOL TARTRATE 50MG TABLET PO SCH ×2 (09:04→20:09)
[2021-11-04 12:00] VITALS: BP 129/60
[2021-11-04 16:00] VITALS: BP 128/60
[2021-11-04 20:00] VITALS: BP 138/70
[2021-11-05] VITALS: BP 135/66
[2021-11-05 04:00] VITALS: BP 132/60
[2021-11-05] MEDS: HYDROCODONE/ACETAMINOPHEN 10/325MG TABLET PO PRN ×2 (04:16→16:01)
[2021-11-05] MEDS: MAGNESIUM HYDROXIDE 400MG/5ML 30ML UDC PO PRN (06:13)
[2021-11-05 08:00] VITALS: BP 154/71
[2021-11-05] MEDS: METOPROLOL TARTRATE 50MG TABLET PO SCH (08:38)
[2021-11-05] MEDS: APIXABAN 5 MG TABLET PO SCH ×2 (08:38→16:23)
[2021-11-05 12:00] VITALS: BP 118/74
[2021-11-05] MEDS ORDERED: LACTULOSE 20G/30ML UDC PO NR (15:30)
[2021-11-05] MEDS: NITROGLYCERIN 0.4MG TABLET SL SL PRN (15:52)
[2021-11-05 16:00] VITALS: BP 184/78
[2021-11-05] MEDS ORDERED: METOPROLOL TARTRATE 50MG TABLET PO NR ×2 (16:15→16:30)
[2021-11-05 20:00] VITALS: BP 151/81
[2021-11-05] MEDS: METOPROLOL TARTRATE 100MG TABLET PO SCH (21:11)
[2021-11-06] VITALS: BP 158/77
[2021-11-06 04:00] VITALS: BP 138/57
[2021-11-06 08:00] VITALS: BP 149/54
[2021-11-06] MEDS: APIXABAN 5 MG TABLET PO SCH ×2 (08:22→17:27)
[2021-11-06] MEDS: MAGNESIUM HYDROXIDE 400MG/5ML 30ML UDC PO PRN (08:22)
[2021-11-06] MEDS: METOPROLOL TARTRATE 100MG TABLET PO SCH ×2 (08:22→21:14)
[2021-11-06 12:00] VITALS: BP 165/60
[2021-11-06 16:00] VITALS: BP 175/78
[2021-11-06] MEDS: HYDROCODONE/ACETAMINOPHEN 10/325MG TABLET PO PRN (17:27)
[2021-11-06] MEDS ORDERED: CLON0.2T PO (18:50)
[2021-11-06] MEDS ORDERED: GLIP2.5T3 PO (18:50)
[2021-11-06] MEDS ORDERED: HYDR100T31 PO (18:50)
[2021-11-06 20:00] VITALS: BP 150/51
[2021-11-07] VITALS: BP 126/48
[2021-11-07 04:00] VITALS: BP 134/59
[2021-11-07 08:00] VITALS: BP 147/57
[2021-11-07] MEDS: APIXABAN 5 MG TABLET PO SCH (08:33)
[2021-11-07] MEDS: HYDROCODONE/ACETAMINOPHEN 10/325MG TABLET PO PRN (08:35)
[2021-11-07] MEDS: METOPROLOL TARTRATE 100MG TABLET PO SCH (08:41)
[2021-11-07 10:04] VITALS: BP 147/57
== END 2021-11-07 11:30 | disposition home or self-care (01) | DRG 291 ==
LOC: ER 13:32 → MICUSO 11-04 00:27 → 7WST 11-04 08:20
PROVIDERS: ADMIT Internal Medicine; ATTEND Internal Medicine
DX: I13.0 Hypertensive heart and chronic kidney disease with heart failure and stage 1 through stage 4 chronic kidney disease, or unspecified chronic kidney disease (principal); I50.33 Acute on chronic diastolic (congestive) heart failure; N17.9 Acute kidney failure, unspecified; Z68.41 Body mass index [BMI] 40.0-44.9, adult; I48.20 Chronic atrial fibrillation, unspecified; I48.0 Paroxysmal atrial fibrillation; M19.90 Unspecified osteoarthritis, unspecified site; E66.01 Morbid (severe) obesity due to excess calories; N18.9 Chronic kidney disease, unspecified; D63.1 Anemia in chronic kidney disease; E11.22 Type 2 diabetes mellitus with diabetic chronic kidney disease; M10.9 Gout, unspecified; F17.200 Nicotine dependence, unspecified, uncomplicated; Z88.8 Allergy status to other drugs, medicaments and biological substances; Z90.49 Acquired absence of other specified parts of digestive tract; Z90.710 Acquired absence of both cervix and uterus; Z79.899 Other long term (current) drug therapy
CPT/HCPCS: 36415; 71045; 80053; 82962; 83880; 84484; 85025; 85379; 93005; 99285; J2405; J7030

== ENCOUNTER 2021-12-20 14:02 | Emergency (ER) | payer MEDICARE, MEDICAID ==
[~2021-12-20] VITALS: Ht 172.7 cm; Wt 136.0 kg
[~2021-12-20 14:02] MED LIST changes: +CLON0.2T PO; -CLOT15CR27 TP; +GLIP2.5T3 PO; -HYDR-4135 PO; +HYDR100T31 PO; -LORA10TA7 PO
[2021-12-20] MEDS ORDERED: SODIUM CHLORIDE 0.9% 500 ML IV ONE (14:15)
[2021-12-20] MEDS ORDERED: MECLIZINE 25MG TABLET PO ONE (14:45)
[2021-12-20 15:00] LABS: BASOPHILS % 0.9 % (0.0-2.0); EOSINOPHILS % 3.2 % (0.0-5.0); HEMATOCRIT. 32.6 % (36.0-48.0); HEMOGLOBIN. 10.6 g/dL (12.0-16.0); LYMPHOCYTES % 20.6 % (20.0-50.0); MEAN CORPUSCULAR HEMOGLOBIN 30.9 pg (28.0-32.0); MEAN CORPUSCULAR VOLUME 94.9 fL (81.0-99.0); MEAN PLATELET VOLUME 10.3 fl (7.4-10.4); MONOCYTES % 5.6 % (2.0-8.0); NEUTROPHILS % 69.7 % (40.0-76.0); PLATELET 223 x1000/uL (130-400); RED BLOOD CELL COUNT 3.44 mill/uL (4.2-5.4); RED CELL DISTRIBUTION WIDTH 17.2 % (11.6-14.6)
[2021-12-20 15:01] LABS: CHLORIDE 105 mEq/L (98-107)
[2021-12-20] MEDS ORDERED: ACETAMINOPHEN 325MG TABLET PO ONE (17:30)
[2021-12-20] MEDS ORDERED: MECL-159 MT (18:46)
[2021-12-20 19:00] VITALS: BP 124/58
== END 2021-12-20 19:20 | disposition home or self-care (01) ==
LOC: ER 14:12
DX: R42 Dizziness and giddiness (principal); R53.1 Weakness; I11.0 Hypertensive heart disease with heart failure; I50.9 Heart failure, unspecified; I48.91 Unspecified atrial fibrillation; E11.9 Type 2 diabetes mellitus without complications; Z90.710 Acquired absence of both cervix and uterus; Z90.49 Acquired absence of other specified parts of digestive tract; Z79.899 Other long term (current) drug therapy
CPT/HCPCS: 36415; 70450; 71045; 80053; 83880; 84484; 85025; 93005; 96360; 99285; J7040; J8597

== ENCOUNTER 2022-03-06 05:59 | Inpatient (IN) | payer MEDICARE, MEDICAID ==
[~2022-03-06] VITALS: Ht 170.2 cm; Wt 130.6 kg
[~2022-03-06 05:59] MED LIST changes: +MECL-159 MT
[2022-03-06] MEDS ORDERED: IPRATROPIUM BROMIDE (0.02%) 0.5MG/2.5ML NEB HHN STA (06:34)
[2022-03-06] MEDS ORDERED: ALBUTEROL (0.083%) 2.5MG/3ML NEB HHN STA (06:34)
[2022-03-06] MEDS ORDERED: METHYLPREDNISOLONE SOD SUCC 125 MG/2 ML VIAL IV STA (06:34)
[2022-03-06] MEDS ORDERED: HYDROCODONE/ACETAMINOPHEN 5/325MG TABLET PO ONE (08:45)
[2022-03-06] MEDS ORDERED: METHYLPREDNISOLONE SOD SUCC 125 MG/2 ML VIAL IV NR (08:45)
[2022-03-06 08:58] LABS: BASOPHILS % 0.6 % (0.0-2.0); EOSINOPHILS % 1.9 % (0.0-5.0); HEMATOCRIT. 24.8 % (36.0-48.0); HEMOGLOBIN. 8.2 g/dL (12.0-16.0); LYMPHOCYTES % 14.4 % (20.0-50.0); MEAN CORPUSCULAR HEMOGLOBIN 31.1 pg (28.0-32.0); MEAN CORPUSCULAR VOLUME 94.1 fL (81.0-99.0); MEAN PLATELET VOLUME 10.2 fl (7.4-10.4); MONOCYTES % 6.9 % (2.0-8.0); NEUTROPHILS % 76.2 % (40.0-76.0); PLATELET 208 x1000/uL (130-400); RED BLOOD CELL COUNT 2.63 mill/uL (4.2-5.4); RED CELL DISTRIBUTION WIDTH 18.3 % (11.6-14.6)
[2022-03-06 09:06] LABS: CHLORIDE 108 mEq/L (98-107)
[2022-03-06] MEDS ORDERED: ASPIRIN 81MG TABLET PO ONE (09:45)
[2022-03-06] MEDS ORDERED: NITROGLYCERIN 0.4MG TABLET SL SL PRN (09:45)
[2022-03-06 15:01] VITALS: BP 145/70
[2022-03-06 16:00] VITALS: BP 139/71
[2022-03-06] MEDS ORDERED: CLONIDINE 0.2MG TABLET PO PRN (16:00)
[2022-03-06] MEDS ORDERED: ONDANSETRON HCL 4MG/2ML INJ IV PRN (16:00)
[2022-03-06] MEDS: METHYLPREDNISOLONE SOD SUCC 40 MG/ML VIAL IV SCH (18:09)
[2022-03-06] MEDS ORDERED: DEXTROSE 50% WATER 50ML SYRINGE IV PRN (20:00)
[2022-03-06] MEDS ORDERED: MECLIZINE 25MG TABLET PO PRN (20:00)
[2022-03-06] MEDS ORDERED: DOCUSATE SODIUM 250MG CAPSULE PO PRN (20:00)
[2022-03-06] MEDS: BLOOD SUGAR DIAGNOSTIC STRIP TEST SCH (21:00)
[2022-03-06] MEDS: ACETAMINOPHEN 325MG TABLET PO PRN (23:36)
[2022-03-06] MEDS: INSULIN LISPRO 100 UNITS/ML SUBCUT SCH (23:38)
[2022-03-06] MEDS: ATORVASTATIN CALCIUM 40MG TABLET PO SCH (23:39)
[2022-03-06] MEDS: HYDRALAZINE HCL 100MG TABLET PO SCH (23:39)
[2022-03-06] MEDS: DOXAZOSIN MESYLATE 4MG TABLET PO SCH (23:40)
[2022-03-07 00:45] VITALS: BP 139/61
[2022-03-07] MEDS: METHYLPREDNISOLONE SOD SUCC 40 MG/ML VIAL IV SCH ×3 (01:30→17:12)
[2022-03-07] MEDS: HYDRALAZINE HCL 100MG TABLET PO SCH ×3 (05:52→22:41)
[2022-03-07] MEDS: LEVOTHYROXINE SODIUM 25MCG TABLET PO SCH (06:46)
[2022-03-07] MEDS: BLOOD SUGAR DIAGNOSTIC STRIP TEST SCH ×4 (07:20→21:00)
[2022-03-07] MEDS: IPRATROPIUM/ALBUTEROL 0.5-3(2.5)MG/3ML NEB HHN SCH ×5 (07:50→13:20)
[2022-03-07 08:00] VITALS: BP 149/68
[2022-03-07] MEDS: FERROUS SULFATE 325MG TABLET PO SCH ×3 (08:29→17:02)
[2022-03-07] MEDS: INSULIN LISPRO 100 UNITS/ML SUBCUT SCH ×4 (08:30→21:00)
[2022-03-07] MEDS: PANTOPRAZOLE SODIUM 40 MG/VIAL IV SCH (09:05)
[2022-03-07] MEDS: APIXABAN 5 MG TABLET PO SCH ×2 (10:17→17:02)
[2022-03-07] MEDS: ALLOPURINOL 100 MG TABLET PO SCH ×2 (10:17→17:02)
[2022-03-07] MEDS: FUROSEMIDE 40MG TABLET PO SCH (10:17)
[2022-03-07] MEDS: SPIRONOLACTONE 25MG TABLET PO SCH (10:18)
[2022-03-07] MEDS: AMLODIPINE 10MG TABLET PO SCH (10:18)
[2022-03-07] MEDS: GLIPIZIDE XL 2.5MG TABLET PO SCH (10:30)
[2022-03-07 12:00] VITALS: BP 142/54
[2022-03-07] MEDS: DOCUSATE SODIUM 250MG CAPSULE PO SCH (13:23)
[2022-03-07] MEDS: ACETAMINOPHEN 325MG TABLET PO PRN (14:59)
[2022-03-07 16:00] VITALS: BP 145/58
[2022-03-07] MEDS ORDERED: LACTULOSE 20G/30ML UDC PO NR (16:15)
[2022-03-07 21:17] LABS: HEMATOCRIT. 25.6 % (36.0-48.0); HEMOGLOBIN. 8.2 g/dL (12.0-16.0); MEAN CORPUSCULAR HEMOGLOBIN 30.7 pg (28.0-32.0); MEAN CORPUSCULAR VOLUME 95.2 fL (81.0-99.0); MEAN PLATELET VOLUME 9.6 fl (7.4-10.4); PLATELET 197 x1000/uL (130-400); RED BLOOD CELL COUNT 2.69 mill/uL (4.2-5.4); RED CELL DISTRIBUTION WIDTH 17.9 % (11.6-14.6)
[2022-03-07 22:00] VITALS: BP 145/66
[2022-03-07] MEDS: ATORVASTATIN CALCIUM 40MG TABLET PO SCH (22:41)
[2022-03-07] MEDS: DOXAZOSIN MESYLATE 4MG TABLET PO SCH (22:41)
[2022-03-08] VITALS: BP 124/56
[2022-03-08 00:20] LABS: PLATELET ESTIMATE NORMAL
[2022-03-08] MEDS: METHYLPREDNISOLONE SOD SUCC 40 MG/ML VIAL IV SCH (01:08)
[2022-03-08] MEDS: ACETAMINOPHEN 325MG TABLET PO PRN (01:09)
[2022-03-08 04:00] VITALS: BP 135/65
[2022-03-08] MEDS: HYDRALAZINE HCL 100MG TABLET PO SCH ×2 (05:34→13:27)
[2022-03-08] MEDS: LEVOTHYROXINE SODIUM 25MCG TABLET PO SCH (06:49)
[2022-03-08] MEDS: BLOOD SUGAR DIAGNOSTIC STRIP TEST SCH ×2 (06:54→12:22)
[2022-03-08] MEDS: INSULIN LISPRO 100 UNITS/ML SUBCUT SCH ×2 (07:50→12:22)
[2022-03-08 07:58] VITALS: BP 145/61
[2022-03-08] MEDS: PANTOPRAZOLE SODIUM 40 MG/VIAL IV SCH (08:43)
[2022-03-08] MEDS: GLIPIZIDE XL 2.5MG TABLET PO SCH (08:43)
[2022-03-08] MEDS: SPIRONOLACTONE 25MG TABLET PO SCH (08:44)
[2022-03-08] MEDS: FUROSEMIDE 40MG TABLET PO SCH (08:44)
[2022-03-08] MEDS: APIXABAN 5 MG TABLET PO SCH (08:44)
[2022-03-08] MEDS: FERROUS SULFATE 325MG TABLET PO SCH ×2 (08:44→12:32)
[2022-03-08] MEDS: AMLODIPINE 10MG TABLET PO SCH (08:44)
[2022-03-08] MEDS: ALLOPURINOL 100 MG TABLET PO SCH (08:44)
[2022-03-08] MEDS: DOCUSATE SODIUM 250MG CAPSULE PO SCH (08:53)
[2022-03-08] MEDS ORDERED: PREDNISONE 20MG TABLET PO SCH (09:00)
[2022-03-08] MEDS ORDERED: P20 MT (09:07)
[2022-03-08 12:02] VITALS: BP 159/72
[2022-03-08 13:50] VITALS: BP 159/72
== END 2022-03-08 15:46 | disposition home or self-care (01) | DRG 189 ==
LOC: ER 05:59 → 6WST 11:06 → EDBEDREQ 11:35
PROVIDERS: ADMIT Internal Medicine; ATTEND Internal Medicine
DX: J96.00 Acute respiratory failure, unspecified whether with hypoxia or hypercapnia (principal); J44.1 Chronic obstructive pulmonary disease with (acute) exacerbation; I13.0 Hypertensive heart and chronic kidney disease with heart failure and stage 1 through stage 4 chronic kidney disease, or unspecified chronic kidney disease; I50.32 Chronic diastolic (congestive) heart failure; Z68.42 Body mass index [BMI] 45.0-49.9, adult; E11.22 Type 2 diabetes mellitus with diabetic chronic kidney disease; E66.9 Obesity, unspecified; E87.5 Hyperkalemia; N18.9 Chronic kidney disease, unspecified; E03.9 Hypothyroidism, unspecified; D63.1 Anemia in chronic kidney disease; I48.0 Paroxysmal atrial fibrillation; E78.5 Hyperlipidemia, unspecified; T59.811A Toxic effect of smoke, accidental (unintentional), initial encounter; M10.9 Gout, unspecified; M19.90 Unspecified osteoarthritis, unspecified site; Z88.8 Allergy status to other drugs, medicaments and biological substances; Z90.49 Acquired absence of other specified parts of digestive tract; Z90.710 Acquired absence of both cervix and uterus; Z87.891 Personal history of nicotine dependence; Y92.89 Other specified places as the place of occurrence of the external cause
CPT/HCPCS: 36415; 71045; 80048; 80053; 82962; 83036; 83880; 84484; 85025; 93005; 94640; 99285; C9113; J1815; J2920; J2930; J7512

== ENCOUNTER 2022-04-05 04:04 | Inpatient (IN) | payer MEDICARE, MEDICAID ==
[~2022-04-05] VITALS: Ht 170.2 cm; Wt 78.9 kg
[~2022-04-05 04:04] MED LIST changes: +P20 MT
[2022-04-05] MEDS ORDERED: DILTIAZEM HCL 125 MG in DEXT 5% WATER 100 ML IV ONE (04:45)
[2022-04-05] MEDS ORDERED: DILTIAZEM HCL 5MG/ML 5ML VIAL IV ONE (04:45)
[2022-04-05 04:58] LABS: BASOPHILS % 0.4 % (0.0-2.0); EOSINOPHILS % 4.3 % (0.0-5.0); HEMATOCRIT. 27.1 % (36.0-48.0); HEMOGLOBIN. 8.9 g/dL (12.0-16.0); LYMPHOCYTES % 20.5 % (20.0-50.0); MEAN CORPUSCULAR HEMOGLOBIN 31.2 pg (28.0-32.0); MEAN CORPUSCULAR VOLUME 95.1 fL (81.0-99.0); MEAN PLATELET VOLUME 9.6 fl (7.4-10.4); MONOCYTES % 8.3 % (2.0-8.0); NEUTROPHILS % 66.5 % (40.0-76.0); PLATELET 194 x1000/uL (130-400); RED BLOOD CELL COUNT 2.85 mill/uL (4.2-5.4)
[2022-04-05] MEDS ORDERED: DILTIAZEM HCL 125 MG in DEXT 5% WATER 100 ML IV NR (05:00)
[2022-04-05 05:07] LABS: CHLORIDE 109 mEq/L (98-107)
[2022-04-05 05:40] LABS: INR 1.2; PROTHROMBIN TIME 12.6 sec (9.6-11.0)
[2022-04-05] MEDS ORDERED: FUROSEMIDE 20MG/2ML VIAL IVP ONE (05:45)
[2022-04-05] MEDS ORDERED: NITROGLYCERIN OINT 1GM/INCH UDPKT TD ONE (05:45)
[2022-04-05] MEDS ORDERED: METOPROLOL TARTRATE 50MG TABLET PO NR (13:16)
[2022-04-05] MEDS: APIXABAN 5 MG TABLET PO SCH (17:00)
[2022-04-05] MEDS ORDERED: ZOLPIDEM TARTRATE 5MG TABLET PO PRN (18:00)
[2022-04-05] MEDS ORDERED: CLONIDINE 0.1MG TABLET PO PRN (18:00)
[2022-04-05] MEDS ORDERED: MECLIZINE 25MG TABLET PO PRN (18:00)
[2022-04-05] MEDS: DILTIAZEM HCL 60MG TABLET PO SCH (18:00)
[2022-04-05] MEDS ORDERED: IPRATROPIUM BROMIDE (0.02%) 0.5MG/2.5ML NEB HHN PRN (18:00)
[2022-04-05] MEDS ORDERED: ONDANSETRON HCL 4MG/2ML INJ IV PRN (18:00)
[2022-04-05] MEDS ORDERED: ACETAMINOPHEN 325MG TABLET PO PRN (18:00)
[2022-04-05] MEDS ORDERED: DEXTROSE 50% WATER 50ML SYRINGE IV PRN (18:00)
[2022-04-05] MEDS ORDERED: MAGNESIUM/ALUMINUM HYDROXIDE/SIMETHICONE 30ML UDC PO PRN (18:00)
[2022-04-05] MEDS ORDERED: DIPHENHYDRAMINE 50MG/ML VIAL IV PRN (18:00)
[2022-04-05] MEDS: PROMETHAZINE/DEXTROMETHORPHAN 6.25-15MG/5ML BOTTLE 120ML PO PRN (20:49)
[2022-04-05] MEDS: ATORVASTATIN CALCIUM 40MG TABLET PO SCH (21:00)
[2022-04-05] MEDS: GUAIFENESIN 600MG ER TABLET PO SCH (21:00)
[2022-04-05] MEDS ORDERED: METOPROLOL TARTRATE 50MG TABLET PO SCH (21:00)
[2022-04-05] MEDS: PANTOPRAZOLE 40MG DR TABLET PO SCH (21:00)
[2022-04-05] MEDS: INSULIN LISPRO 100 UNITS/ML SUBCUT SCH (21:00)
[2022-04-05] MEDS: BLOOD SUGAR DIAGNOSTIC STRIP TEST SCH (21:00)
[2022-04-05] MEDS: SODIUM CHLORIDE 0.9% INJ 3ML FLUSH IVF SCH (22:16)
[2022-04-06] MEDS: PROMETHAZINE/DEXTROMETHORPHAN 6.25-15MG/5ML BOTTLE 120ML PO PRN (08:12)
[2022-04-06] MEDS: DILTIAZEM HCL 60MG TABLET PO SCH ×2 (08:13)
[2022-04-06] MEDS: PANTOPRAZOLE 40MG DR TABLET PO SCH ×2 (08:13→21:00)
[2022-04-06] MEDS: SODIUM CHLORIDE 0.9% INJ 3ML FLUSH IVF SCH ×3 (08:13→22:00)
[2022-04-06] MEDS: BENZONATATE 200MG CAPSULE PO SCH ×4 (08:13→23:30)
[2022-04-06] MEDS: BLOOD SUGAR DIAGNOSTIC STRIP TEST SCH ×4 (08:14→23:30)
[2022-04-06] MEDS: GLIPIZIDE XL 2.5MG TABLET PO SCH (08:14)
[2022-04-06] MEDS: INSULIN LISPRO 100 UNITS/ML SUBCUT SCH ×4 (08:14→21:00)
[2022-04-06] MEDS: ACETAMINOPHEN 325MG TABLET PO PRN ×3 (08:15→23:30)
[2022-04-06] MEDS: FUROSEMIDE 40MG/4ML VIAL IVP SCH (09:00)
[2022-04-06] MEDS: GUAIFENESIN 600MG ER TABLET PO SCH ×2 (09:00→21:00)
[2022-04-06] MEDS: APIXABAN 5 MG TABLET PO SCH ×2 (09:00→17:00)
[2022-04-06] MEDS ORDERED: DILTIAZEM HCL 125 MG in DEXT 5% WATER 100 ML IV PRN (10:50)
[2022-04-06] MEDS ORDERED: DIGOXIN 500MCG/2ML AMP IV NR (11:15)
[2022-04-06] MEDS: DILTIAZEM HCL 90MG TABLET PO SCH ×2 (12:00→18:00)
[2022-04-06] MEDS: ATORVASTATIN CALCIUM 40MG TABLET PO SCH (21:00)
[2022-04-07] VITALS (20 sets, daily range): BP systolic 106–154; BP diastolic 50–89
[2022-04-07] MEDS: DILTIAZEM HCL 90MG TABLET PO SCH ×4 (06:00→17:22)
[2022-04-07] MEDS: SODIUM CHLORIDE 0.9% INJ 3ML FLUSH IVF SCH ×3 (06:06→22:00)
[2022-04-07] MEDS: BENZONATATE 200MG CAPSULE PO SCH ×3 (06:38→21:35)
[2022-04-07] MEDS: PANTOPRAZOLE 40MG DR TABLET PO SCH ×2 (06:44→21:36)
[2022-04-07] MEDS: BLOOD SUGAR DIAGNOSTIC STRIP TEST SCH ×4 (06:44→21:00)
[2022-04-07] MEDS: INSULIN LISPRO 100 UNITS/ML SUBCUT SCH ×4 (07:00→21:00)
[2022-04-07] MEDS: GLIPIZIDE XL 2.5MG TABLET PO SCH (07:00)
[2022-04-07] MEDS: FUROSEMIDE 40MG/4ML VIAL IVP SCH (11:15)
[2022-04-07] MEDS: APIXABAN 5 MG TABLET PO SCH ×2 (11:15→17:21)
[2022-04-07] MEDS: GUAIFENESIN 600MG ER TABLET PO SCH ×2 (11:15→21:39)
[2022-04-07] MEDS ORDERED: METOPROLOL TARTRATE 50MG TABLET PO SCH ×2 (13:15)
[2022-04-07] MEDS: METOPROLOL TARTRATE 50MG TABLET PO SCH ×3 (13:46→21:38)
[2022-04-07] MEDS: ATORVASTATIN CALCIUM 40MG TABLET PO SCH (21:36)
[2022-04-07 22:18] LABS: CLARITY URINE CLEAR (CLEAR); COLOR URINE YELLOW (YELLOW); KETONES URINE NEGATIVE (NEGATIVE); LEUKOCYTE ESTERASE URINE NEGATIVE (NEGATIVE); NITRITE URINE NEGATIVE (NEGATIVE); OCCULT BLOOD URINE NEGATIVE (NEGATIVE); PROTEIN URINE 1+ (NEGATIVE); SPECIFIC GRAVITY URINE 1.012 (1.005-1.030)
[2022-04-08] VITALS (24 sets, daily range): BP systolic 111–153; BP diastolic 48–79
[2022-04-08] MEDS: DILTIAZEM HCL 90MG TABLET PO SCH ×5 (00:09→23:58)
[2022-04-08 05:47] LABS: BASOPHILS % 0.4 % (0.0-2.0); EOSINOPHILS % 3.5 % (0.0-5.0); HEMATOCRIT. 27.1 % (36.0-48.0); HEMOGLOBIN. 8.9 g/dL (12.0-16.0); MEAN CORPUSCULAR HEMOGLOBIN 30.9 pg (28.0-32.0); MEAN CORPUSCULAR VOLUME 94.1 fL (81.0-99.0); MEAN PLATELET VOLUME 9.6 fl (7.4-10.4); MONOCYTES % 10.7 % (2.0-8.0); NEUTROPHILS % 64.4 % (40.0-76.0); PLATELET 216 x1000/uL (130-400); RED BLOOD CELL COUNT 2.88 mill/uL (4.2-5.4); RED CELL DISTRIBUTION WIDTH 16.8 % (11.6-14.6)
[2022-04-08] MEDS: BENZONATATE 200MG CAPSULE PO SCH ×3 (06:09→21:44)
[2022-04-08] MEDS: SODIUM CHLORIDE 0.9% INJ 3ML FLUSH IVF SCH ×3 (06:10→22:00)
[2022-04-08] MEDS: INSULIN LISPRO 100 UNITS/ML SUBCUT SCH ×4 (08:20→21:00)
[2022-04-08] MEDS: FUROSEMIDE 40MG/4ML VIAL IVP SCH (08:32)
[2022-04-08] MEDS: GUAIFENESIN 600MG ER TABLET PO SCH ×2 (08:32→21:44)
[2022-04-08] MEDS: GLIPIZIDE XL 2.5MG TABLET PO SCH (08:33)
[2022-04-08] MEDS: PANTOPRAZOLE 40MG DR TABLET PO SCH ×2 (08:33→21:44)
[2022-04-08] MEDS: BLOOD SUGAR DIAGNOSTIC STRIP TEST SCH ×4 (08:33→21:00)
[2022-04-08] MEDS: APIXABAN 5 MG TABLET PO SCH ×2 (08:33→17:45)
[2022-04-08] MEDS: METOPROLOL TARTRATE 50MG TABLET PO SCH (08:34)
[2022-04-08] MEDS: ACETAMINOPHEN 325MG TABLET PO PRN (10:47)
[2022-04-08] MEDS ORDERED: DIGOXIN 500MCG/2ML AMP IV NR (11:45)
[2022-04-08] MEDS: METOPROLOL TARTRATE 25MG TABLET PO SCH (21:00)
[2022-04-08] MEDS: ATORVASTATIN CALCIUM 40MG TABLET PO SCH (21:44)
[2022-04-09] VITALS (27 sets, daily range): BP systolic 113–174; BP diastolic 57–103
[2022-04-09] MEDS: ACETAMINOPHEN 325MG TABLET PO PRN (01:15)
[2022-04-09] MEDS: BENZONATATE 200MG CAPSULE PO SCH ×2 (06:22→13:52)
[2022-04-09] MEDS: DILTIAZEM HCL 90MG TABLET PO SCH ×3 (06:22→18:30)
[2022-04-09] MEDS: SODIUM CHLORIDE 0.9% INJ 3ML FLUSH IVF SCH (06:22)
[2022-04-09] MEDS: BLOOD SUGAR DIAGNOSTIC STRIP TEST SCH ×3 (08:11→18:16)
[2022-04-09] MEDS: INSULIN LISPRO 100 UNITS/ML SUBCUT SCH ×2 (08:20→12:28)
[2022-04-09] MEDS: PANTOPRAZOLE 40MG DR TABLET PO SCH (08:26)
[2022-04-09] MEDS: APIXABAN 5 MG TABLET PO SCH ×2 (08:26→18:29)
[2022-04-09] MEDS: FUROSEMIDE 40MG/4ML VIAL IVP SCH (08:27)
[2022-04-09] MEDS: GUAIFENESIN 600MG ER TABLET PO SCH (08:27)
[2022-04-09] MEDS: METOPROLOL TARTRATE 25MG TABLET PO SCH (08:27)
[2022-04-09] MEDS: GLIPIZIDE XL 2.5MG TABLET PO SCH (08:27)
== END 2022-04-09 19:00 | disposition home or self-care (01) | DRG 308 ==
LOC: ER 04:19 → MICUSO 05:17 → EDBEDREQ 05:19 → CVICU 04-07 08:56 → 3WST 04-09 18:05
PROVIDERS: ADMIT Internal Medicine; ATTEND Internal Medicine
DX: I48.91 Unspecified atrial fibrillation (principal); I50.33 Acute on chronic diastolic (congestive) heart failure; I13.0 Hypertensive heart and chronic kidney disease with heart failure and stage 1 through stage 4 chronic kidney disease, or unspecified chronic kidney disease; N17.9 Acute kidney failure, unspecified; J20.9 Acute bronchitis, unspecified; Z20.822 Contact with and (suspected) exposure to COVID-19; E66.01 Morbid (severe) obesity due to excess calories; N18.9 Chronic kidney disease, unspecified; E11.22 Type 2 diabetes mellitus with diabetic chronic kidney disease; E78.00 Pure hypercholesterolemia, unspecified; D63.1 Anemia in chronic kidney disease; M19.90 Unspecified osteoarthritis, unspecified site; M10.9 Gout, unspecified; Z88.8 Allergy status to other drugs, medicaments and biological substances; Z79.01 Long term (current) use of anticoagulants; Z68.27 Body mass index [BMI] 27.0-27.9, adult; Z79.899 Other long term (current) drug therapy; Z90.710 Acquired absence of both cervix and uterus
CPT/HCPCS: 36415; 71045; 80048; 80053; 81003; 82962; 83036; 83880; 84484; 85025; 86850; 86900; 87426; 93005; 93306; 99291; J1160; J1815; J1940; J2405; J3490; J7060

== ENCOUNTER 2022-06-02 05:39 | Inpatient (IN) | payer MEDICARE, MEDICAID ==
[~2022-06-02] VITALS: Ht 170.2 cm; Wt 119.8 kg
[2022-06-02 06:24] LABS: BASOPHILS % 0.2 % (0.0-2.0); EOSINOPHILS % 3.1 % (0.0-5.0); HEMOGLOBIN. 9.7 g/dL (12.0-16.0); LYMPHOCYTES % 19.2 % (20.0-50.0); MEAN CORPUSCULAR HEMOGLOBIN 29.7 pg (28.0-32.0); MEAN CORPUSCULAR VOLUME 92.1 fL (81.0-99.0); MEAN PLATELET VOLUME 9.1 fl (7.4-10.4); MONOCYTES % 14.8 % (2.0-8.0); NEUTROPHILS % 62.7 % (40.0-76.0); PLATELET 146 x1000/uL (130-400); RED BLOOD CELL COUNT 3.25 mill/uL (4.2-5.4)
[2022-06-02 06:46] LABS: CHLORIDE 106 mEq/L (98-107)
[2022-06-02] MEDS ORDERED: AZITHROMYCIN 500MG/250ML 250 ML IV ONE (12:45)
[2022-06-02] MEDS ORDERED: CEFTRIAXONE 1 G PREMIX 50 ML IV ONE (12:45)
[2022-06-02] MEDS ORDERED: PROMETHAZINE/DEXTROMETHORPHAN 6.25-15MG/5ML BOTTLE 120ML PO PRN (14:45)
[2022-06-02] MEDS ORDERED: CLONIDINE 0.1MG TABLET PO NR (14:45)
[2022-06-02] MEDS ORDERED: CLONIDINE 0.1MG TABLET PO PRN (15:45)
[2022-06-02] MEDS ORDERED: ZOLPIDEM TARTRATE 5MG TABLET PO PRN (15:45)
[2022-06-02] MEDS ORDERED: DEXTROSE 50% WATER 50ML SYRINGE IV PRN (15:45)
[2022-06-02] MEDS ORDERED: IPRATROPIUM/ALBUTEROL 0.5-3(2.5)MG/3ML NEB HHN PRN (15:45)
[2022-06-02] MEDS ORDERED: ONDANSETRON HCL 4MG/2ML INJ IV PRN (15:45)
[2022-06-02] MEDS ORDERED: DIPHENHYDRAMINE 50MG/ML VIAL IV PRN (15:45)
[2022-06-02] MEDS: BENZONATATE 100MG CAPSULE PO PRN (16:52)
[2022-06-02] MEDS: BLOOD SUGAR DIAGNOSTIC STRIP TEST SCH ×2 (16:53→21:14)
[2022-06-02] MEDS: INSULIN LISPRO 100 UNITS/ML SUBCUT SCH ×2 (17:00→21:00)
[2022-06-02 19:30] VITALS: BP 150/67
[2022-06-02 20:00] VITALS: BP 150/67
[2022-06-02] MEDS: GUAIFENESIN 600MG ER TABLET PO SCH (21:13)
[2022-06-02] MEDS: ATORVASTATIN CALCIUM 40MG TABLET PO SCH (21:13)
[2022-06-02] MEDS: ACETAMINOPHEN 325MG TABLET PO PRN (21:13)
[2022-06-02] MEDS: SODIUM CHLORIDE 0.9% INJ 3ML FLUSH IVF SCH (21:14)
[2022-06-02] MEDS: DILTIAZEM HCL 90MG TABLET PO SCH (21:14)
[2022-06-02] MEDS: IPRATROPIUM BROMIDE (0.02%) 0.5MG/2.5ML NEB HHN PRN (21:21)
[2022-06-03] VITALS: BP 124/45
[2022-06-03] MEDS ORDERED: METO25TA6 MT (01:08)
[2022-06-03] MEDS ORDERED: PROM6.254 PO (01:11)
[2022-06-03] MEDS: ACETAMINOPHEN 325MG TABLET PO PRN ×4 (01:45→22:26)
[2022-06-03] MEDS: PROMETHAZINE/DEXTROMETHORPHAN 6.25-15MG/5ML BOTTLE 120ML PO PRN ×4 (01:45→23:14)
[2022-06-03 04:00] VITALS: BP 151/64
[2022-06-03] MEDS: DILTIAZEM HCL 90MG TABLET PO SCH ×3 (06:41→22:25)
[2022-06-03] MEDS: SODIUM CHLORIDE 0.9% INJ 3ML FLUSH IVF SCH ×3 (06:42→22:27)
[2022-06-03] MEDS: BENZONATATE 100MG CAPSULE PO PRN ×2 (06:42→14:55)
[2022-06-03] MEDS: BLOOD SUGAR DIAGNOSTIC STRIP TEST SCH ×4 (06:42→22:44)
[2022-06-03] MEDS: INSULIN LISPRO 100 UNITS/ML SUBCUT SCH ×4 (06:43→22:44)
[2022-06-03] MEDS: GLIPIZIDE XL 2.5MG TABLET PO SCH (06:43)
[2022-06-03 08:00] VITALS: BP 136/76
[2022-06-03] MEDS: FUROSEMIDE 40MG/4ML VIAL IVP SCH (09:00)
[2022-06-03] MEDS: GUAIFENESIN 600MG ER TABLET PO SCH ×2 (09:00→22:25)
[2022-06-03] MEDS ORDERED: INFLUENZA VACCINE 05/PF 0.5 ML SYRINGE IM ONE (11:00)
[2022-06-03] MEDS ORDERED: LEVOFLOXACIN 500MG PREMIX 100 ML IV NR (11:00)
[2022-06-03] MEDS: ENOXAPARIN 40MG/0.4ML SYR SUBCUT SCH ×2 (11:50→22:27)
[2022-06-03 12:00] VITALS: BP 153/67
[2022-06-03] MEDS: IPRATROPIUM BROMIDE (0.02%) 0.5MG/2.5ML NEB HHN PRN (14:20)
[2022-06-03 16:00] VITALS: BP 157/61
[2022-06-03 19:25] LABS: CLARITY URINE CLEAR (CLEAR); COLOR URINE YELLOW (YELLOW); KETONES URINE NEGATIVE (NEGATIVE); LEUKOCYTE ESTERASE URINE NEGATIVE (NEGATIVE); NITRITE URINE NEGATIVE (NEGATIVE); OCCULT BLOOD URINE NEGATIVE (NEGATIVE); PH URINE 5.5 (4.5-8.0); PROTEIN URINE 3+ (NEGATIVE)
[2022-06-03 20:00] VITALS: BP 157/67
[2022-06-03] MEDS: ATORVASTATIN CALCIUM 40MG TABLET PO SCH (22:27)
[2022-06-04] VITALS: BP_SYST 145; BP_SYST 155; BP_DIAS 58; BP_DIAS 66
[2022-06-04 04:00] VITALS: BP 127/73
[2022-06-04] MEDS: ACETAMINOPHEN 325MG TABLET PO PRN ×2 (05:51→13:16)
[2022-06-04] MEDS: DILTIAZEM HCL 90MG TABLET PO SCH ×3 (05:52→21:07)
[2022-06-04] MEDS: SODIUM CHLORIDE 0.9% INJ 3ML FLUSH IVF SCH ×3 (05:52→21:07)
[2022-06-04] MEDS: PROMETHAZINE/DEXTROMETHORPHAN 6.25-15MG/5ML BOTTLE 120ML PO PRN ×3 (05:52→23:32)
[2022-06-04] MEDS: BLOOD SUGAR DIAGNOSTIC STRIP TEST SCH ×4 (06:49→20:55)
[2022-06-04] MEDS: INSULIN LISPRO 100 UNITS/ML SUBCUT SCH ×4 (06:50→20:57)
[2022-06-04] MEDS: GLIPIZIDE XL 2.5MG TABLET PO SCH (06:50)
[2022-06-04 08:00] VITALS: BP 148/67
[2022-06-04] MEDS: ENOXAPARIN 40MG/0.4ML SYR SUBCUT SCH ×2 (09:20→20:59)
[2022-06-04] MEDS: FUROSEMIDE 40MG/4ML VIAL IVP SCH (09:20)
[2022-06-04] MEDS: GUAIFENESIN 600MG ER TABLET PO SCH ×2 (09:20→20:59)
[2022-06-04] MEDS: LEVOFLOXACIN 250MG PREMIX 50 ML IV SCH (11:39)
[2022-06-04] MEDS: BENZONATATE 100MG CAPSULE PO PRN (11:44)
[2022-06-04 12:00] VITALS: BP 154/87
[2022-06-04 16:30] VITALS: BP 117/69
[2022-06-04 20:00] VITALS: BP 153/64
[2022-06-04] MEDS: ATORVASTATIN CALCIUM 40MG TABLET PO SCH (20:59)
[2022-06-05] MEDS: ACETAMINOPHEN 325MG TABLET PO PRN ×3 (02:47→17:43)
[2022-06-05 04:00] VITALS: BP 140/59
[2022-06-05] MEDS: PROMETHAZINE/DEXTROMETHORPHAN 6.25-15MG/5ML BOTTLE 120ML PO PRN ×2 (06:11→17:49)
[2022-06-05] MEDS: INSULIN LISPRO 100 UNITS/ML SUBCUT SCH ×4 (06:14→21:00)
[2022-06-05] MEDS: BLOOD SUGAR DIAGNOSTIC STRIP TEST SCH ×4 (06:14→21:00)
[2022-06-05] MEDS: DILTIAZEM HCL 90MG TABLET PO SCH ×3 (06:14→22:00)
[2022-06-05] MEDS: SODIUM CHLORIDE 0.9% INJ 3ML FLUSH IVF SCH ×3 (06:14→22:00)
[2022-06-05 06:38] LABS: HEMATOCRIT. 30.6 % (36.0-48.0); HEMOGLOBIN. 10.1 g/dL (12.0-16.0); MEAN CORPUSCULAR HEMOGLOBIN 30.2 pg (28.0-32.0); MEAN CORPUSCULAR VOLUME 91.3 fL (81.0-99.0); MEAN PLATELET VOLUME 9.9 fl (7.4-10.4); PLATELET 137 x1000/uL (130-400); RED BLOOD CELL COUNT 3.35 mill/uL (4.2-5.4); RED CELL DISTRIBUTION WIDTH 16.2 % (11.6-14.6)
[2022-06-05 07:10] LABS: CHLORIDE 104 mEq/L (98-107)
[2022-06-05] MEDS: GLIPIZIDE XL 2.5MG TABLET PO SCH (07:10)
[2022-06-05 08:00] VITALS: BP 120/78
[2022-06-05 08:02] LABS: PLATELET ESTIMATE NORMAL
[2022-06-05] MEDS: FUROSEMIDE 40MG/4ML VIAL IVP SCH (10:01)
[2022-06-05] MEDS: GUAIFENESIN 600MG ER TABLET PO SCH ×2 (10:01→21:00)
[2022-06-05] MEDS: ENOXAPARIN 40MG/0.4ML SYR SUBCUT SCH ×2 (10:01→21:00)
[2022-06-05] MEDS: BENZONATATE 100MG CAPSULE PO PRN ×2 (10:02→18:15)
[2022-06-05] MEDS: LEVOFLOXACIN 250MG PREMIX 50 ML IV SCH (10:04)
[2022-06-05 12:00] VITALS: BP 141/63
[2022-06-05 16:00] VITALS: BP 137/61
[2022-06-05 20:00] VITALS: BP 106/59
[2022-06-05] MEDS: ATORVASTATIN CALCIUM 40MG TABLET PO SCH (21:00)
[2022-06-06] VITALS: BP 114/66
[2022-06-06] MEDS: PROMETHAZINE/DEXTROMETHORPHAN 6.25-15MG/5ML BOTTLE 120ML PO PRN ×3 (02:37→18:06)
[2022-06-06] MEDS: ACETAMINOPHEN 325MG TABLET PO PRN ×2 (03:13→09:55)
[2022-06-06 04:00] VITALS: BP 112/76
[2022-06-06] MEDS: SODIUM CHLORIDE 0.9% INJ 3ML FLUSH IVF SCH ×3 (06:06→23:03)
[2022-06-06] MEDS: DILTIAZEM HCL 90MG TABLET PO SCH ×3 (06:06→23:03)
[2022-06-06] MEDS: BLOOD SUGAR DIAGNOSTIC STRIP TEST SCH ×4 (06:40→21:00)
[2022-06-06] MEDS: INSULIN LISPRO 100 UNITS/ML SUBCUT SCH ×4 (06:41→21:00)
[2022-06-06] MEDS: GLIPIZIDE XL 2.5MG TABLET PO SCH (07:10)
[2022-06-06 08:00] VITALS: BP 138/71
[2022-06-06] MEDS: ENOXAPARIN 40MG/0.4ML SYR SUBCUT SCH ×2 (09:54→23:03)
[2022-06-06] MEDS: GUAIFENESIN 600MG ER TABLET PO SCH ×2 (09:55→23:03)
[2022-06-06] MEDS: FUROSEMIDE 40MG/4ML VIAL IVP SCH (09:55)
[2022-06-06] MEDS: LEVOFLOXACIN 250MG PREMIX 50 ML IV SCH (11:11)
[2022-06-06] MEDS: IPRATROPIUM BROMIDE (0.02%) 0.5MG/2.5ML NEB HHN PRN (11:20)
[2022-06-06 12:00] VITALS: BP 141/72
[2022-06-06] MEDS: IPRATROPIUM BROMIDE (0.02%) 0.5MG/2.5ML NEB HHN SCH ×2 (15:40→20:55)
[2022-06-06 16:00] VITALS: BP 131/70
[2022-06-06] MEDS: BENZONATATE 100MG CAPSULE PO PRN (18:06)
[2022-06-06 20:00] VITALS: BP 142/80
[2022-06-06] MEDS: ATORVASTATIN CALCIUM 40MG TABLET PO SCH (23:02)
[2022-06-07] VITALS (7 sets, daily range): BP systolic 136–153; BP diastolic 71–92
[2022-06-07] MEDS: IPRATROPIUM BROMIDE (0.02%) 0.5MG/2.5ML NEB HHN SCH ×4 (02:30→21:02)
[2022-06-07] MEDS: BENZONATATE 100MG CAPSULE PO PRN ×2 (04:49→14:54)
[2022-06-07] MEDS: ACETAMINOPHEN 325MG TABLET PO PRN ×2 (04:50→17:57)
[2022-06-07] MEDS: BLOOD SUGAR DIAGNOSTIC STRIP TEST SCH ×4 (05:53→21:50)
[2022-06-07] MEDS: INSULIN LISPRO 100 UNITS/ML SUBCUT SCH ×4 (05:54→21:00)
[2022-06-07] MEDS: GLIPIZIDE XL 2.5MG TABLET PO SCH ×2 (05:55→06:05)
[2022-06-07] MEDS: DILTIAZEM HCL 90MG TABLET PO SCH ×3 (05:56→21:51)
[2022-06-07] MEDS: PROMETHAZINE/DEXTROMETHORPHAN 6.25-15MG/5ML BOTTLE 120ML PO PRN (05:56)
[2022-06-07] MEDS: SODIUM CHLORIDE 0.9% INJ 3ML FLUSH IVF SCH ×3 (05:57→21:50)
[2022-06-07] MEDS: FUROSEMIDE 40MG/4ML VIAL IVP SCH (08:58)
[2022-06-07] MEDS: GUAIFENESIN 600MG ER TABLET PO SCH ×2 (08:58→21:56)
[2022-06-07] MEDS: ENOXAPARIN 40MG/0.4ML SYR SUBCUT SCH ×2 (08:58→21:50)
[2022-06-07] MEDS: LEVOFLOXACIN 250MG PREMIX 50 ML IV SCH (12:05)
[2022-06-07] MEDS ORDERED: DILTIAZEM HCL 5MG/ML 5ML VIAL IV NR (15:00)
[2022-06-07] MEDS: ATORVASTATIN CALCIUM 40MG TABLET PO SCH (21:51)
[2022-06-08] VITALS: BP 143/80
[2022-06-08] MEDS: IPRATROPIUM BROMIDE (0.02%) 0.5MG/2.5ML NEB HHN SCH ×2 (03:25→10:43)
[2022-06-08 04:00] VITALS: BP 127/64
[2022-06-08] MEDS: SODIUM CHLORIDE 0.9% INJ 3ML FLUSH IVF SCH ×3 (05:26→21:15)
[2022-06-08] MEDS: DILTIAZEM HCL 90MG TABLET PO SCH ×3 (05:26→23:55)
[2022-06-08] MEDS: INSULIN LISPRO 100 UNITS/ML SUBCUT SCH ×4 (06:25→21:00)
[2022-06-08] MEDS: BLOOD SUGAR DIAGNOSTIC STRIP TEST SCH ×4 (06:25→21:14)
[2022-06-08] MEDS: GLIPIZIDE XL 2.5MG TABLET PO SCH ×2 (07:10→08:07)
[2022-06-08 08:00] VITALS: BP 131/88
[2022-06-08] MEDS: ENOXAPARIN 40MG/0.4ML SYR SUBCUT SCH ×2 (08:07→08:09)
[2022-06-08] MEDS: PROMETHAZINE/DEXTROMETHORPHAN 6.25-15MG/5ML BOTTLE 120ML PO PRN ×2 (08:07→17:10)
[2022-06-08] MEDS: FUROSEMIDE 40MG/4ML VIAL IVP SCH (08:07)
[2022-06-08] MEDS: GUAIFENESIN 600MG ER TABLET PO SCH ×2 (08:07→21:13)
[2022-06-08] MEDS ORDERED: DILTIAZEM HCL 5MG/ML 5ML VIAL IV NR (08:45)
[2022-06-08] MEDS: LEVOFLOXACIN 250MG PREMIX 50 ML IV SCH (10:42)
[2022-06-08] MEDS: ACETAMINOPHEN 325MG TABLET PO PRN (11:23)
[2022-06-08 12:00] VITALS: BP 140/89
[2022-06-08] MEDS ORDERED: DIGOXIN 500MCG/2ML AMP IV NR (12:30)
[2022-06-08] MEDS: METOPROLOL TARTRATE 50MG TABLET PO SCH ×2 (13:39→21:13)
[2022-06-08 16:00] VITALS: BP 134/63
[2022-06-08] MEDS: APIXABAN 5 MG TABLET PO SCH (17:09)
[2022-06-08 20:00] VITALS: BP 138/83
[2022-06-08] MEDS: ATORVASTATIN CALCIUM 40MG TABLET PO SCH (21:14)
[2022-06-09 04:00] VITALS: BP 133/70
[2022-06-09] MEDS: PROMETHAZINE/DEXTROMETHORPHAN 6.25-15MG/5ML BOTTLE 120ML PO PRN ×2 (04:29→12:02)
[2022-06-09] MEDS: DILTIAZEM HCL 90MG TABLET PO SCH ×3 (05:32→17:00)
[2022-06-09] MEDS: SODIUM CHLORIDE 0.9% INJ 3ML FLUSH IVF SCH ×2 (05:32→13:51)
[2022-06-09] MEDS: INSULIN LISPRO 100 UNITS/ML SUBCUT SCH ×3 (06:28→16:55)
[2022-06-09] MEDS: BLOOD SUGAR DIAGNOSTIC STRIP TEST SCH ×3 (06:28→16:55)
[2022-06-09] MEDS: GLIPIZIDE XL 2.5MG TABLET PO SCH (07:10)
[2022-06-09 08:00] VITALS: BP 150/82
[2022-06-09] MEDS: METOPROLOL TARTRATE 50MG TABLET PO SCH (08:39)
[2022-06-09] MEDS: FUROSEMIDE 40MG/4ML VIAL IVP SCH (08:39)
[2022-06-09] MEDS: GUAIFENESIN 600MG ER TABLET PO SCH (08:39)
[2022-06-09] MEDS: APIXABAN 5 MG TABLET PO SCH ×2 (08:40→17:00)
[2022-06-09 12:00] VITALS: BP 116/68
[2022-06-09] MEDS: ACETAMINOPHEN 325MG TABLET PO PRN (13:50)
[2022-06-09] MEDS ORDERED: TIOT18CA3 IH (14:48)
[2022-06-09 15:29] VITALS: BP 116/69
[2022-06-09 16:00] VITALS: BP 145/86
== END 2022-06-09 18:45 | disposition home health service (06) | DRG 871 ==
LOC: ER 05:39 → EDBEDREQ 09:09 → MICUSO 11:11 → EDBEDREQTM 11:16 → EDBEDREQ 11:16 → 7EST 20:24
PROVIDERS: ADMIT Internal Medicine; ATTEND Internal Medicine
PROC: 02HV33Z Insertion of Infusion Device into Superior Vena Cava, Percutaneous Approach (ICD-10-PCS; principal; 2022-06-03)
PROC: B548ZZA Ultrasonography of Superior Vena Cava, Guidance (ICD-10-PCS; 2022-06-03)
DX: A41.9 Sepsis, unspecified organism (principal); I50.33 Acute on chronic diastolic (congestive) heart failure; J18.9 Pneumonia, unspecified organism; J96.21 Acute and chronic respiratory failure with hypoxia; I13.0 Hypertensive heart and chronic kidney disease with heart failure and stage 1 through stage 4 chronic kidney disease, or unspecified chronic kidney disease; J44.0 Chronic obstructive pulmonary disease with (acute) lower respiratory infection; N17.9 Acute kidney failure, unspecified; J44.1 Chronic obstructive pulmonary disease with (acute) exacerbation; J81.1 Chronic pulmonary edema; Z68.41 Body mass index [BMI] 40.0-44.9, adult; I48.0 Paroxysmal atrial fibrillation; Z20.822 Contact with and (suspected) exposure to COVID-19; E05.90 Thyrotoxicosis, unspecified without thyrotoxic crisis or storm; E66.01 Morbid (severe) obesity due to excess calories; E78.00 Pure hypercholesterolemia, unspecified; D63.1 Anemia in chronic kidney disease; E11.22 Type 2 diabetes mellitus with diabetic chronic kidney disease; M10.9 Gout, unspecified; N18.9 Chronic kidney disease, unspecified; Z90.710 Acquired absence of both cervix and uterus; Z79.01 Long term (current) use of anticoagulants; Z79.4 Long term (current) use of insulin
CPT/HCPCS: 36415; 36573; 71045; 80053; 81003; 82962; 83880; 84484; 85025; 87070; 87426; 90686; 93005; 94640; 94667; 97162; 99285; C1725; J0456; J0696; J1160; J1650; J1940; J1956; J2405; J3490

== ENCOUNTER 2024-01-25 15:38 | Inpatient (IN) | payer MEDICARE, MEDICAID ==
[~2024-01-25] VITALS: Ht 172.7 cm; Wt 120.7 kg
[~2024-01-25 15:38] MED LIST changes: +DILT300C53 PO; -DOCU250C14 MT; -DOXA8TAB81 PO; -HYDR100T31 PO; -MECL-159 MT; -P20 MT; -PANT40TA51 PO; -VALS160T28 PO; +[UNRECOGNIZED DRUG - CODE]
[2024-01-25] MEDS: MORPHINE SULFATE 4 MG/ML INJ (FOR IV/IM USE) IV STA (15:48)
[2024-01-25 16:36] LABS: CHLORIDE 106 mEq/L (98-107); DIFFERENTIAL COMMENT 1; HEMATOCRIT. 32.8 % (36.0-48.0); HEMOGLOBIN. 10.3 g/dL (12.0-16.0); MEAN CORPUSCULAR HEMOGLOBIN 31.6 pg (28.0-32.0); MEAN CORPUSCULAR HGB CONC 31.5 g/dL (31.0-37.0); MEAN CORPUSCULAR VOLUME 100.2 fL (81.0-99.0); MEAN PLATELET VOLUME 10.3 fl (7.4-10.4); PLATELET 194 x1000/uL (130-400); POTASSIUM 4.1 mEq/L (3.5-5.1); RED BLOOD CELL COUNT 3.27 mill/uL (4.2-5.4); RED CELL DISTRIBUTION WIDTH 17.1 % (11.6-14.6); SODIUM 139 mEq/L (136-145); WHITE BLOOD COUNT 12.7 x1000/uL (4.5-11.0)
[2024-01-25 16:37] LABS: CALCIUM 9.2 mg/dL (8.7-10.4); CARBON DIOXIDE 29 mEq/L (21-32)
[2024-01-25 16:42] LABS: CREATININE 2.2 mg/dL (0.6-1.0); GLUCOSE 117 mg/dL (70-105); UREA NITROGEN BLOOD 27 mg/dL (9-23)
[2024-01-25 16:43] LABS: INR 1.1; PROTHROMBIN TIME 12.1 sec (9.6-11.0)
[2024-01-25 16:52] LABS: TROPONIN I HIGH SENSITIVITY 147 ng/L (3.0-34)
[2024-01-25] MEDS ORDERED: FUROSEMIDE 20MG/2ML VIAL IVP ONE (17:00)
[2024-01-25 17:15] LABS: PLATELET ESTIMATE NORMAL
[2024-01-25] MEDS: FUROSEMIDE 40MG/4ML VIAL IVP NR (17:24)
[2024-01-25] MEDS ORDERED: MAGNESIUM/ALUMINUM HYDROXIDE/SIMETHICONE 30ML UDC PO PRN (18:00)
[2024-01-25] MEDS ORDERED: CLONIDINE 0.1MG TABLET PO PRN (18:00)
[2024-01-25] MEDS ORDERED: ONDANSETRON HCL 4MG/2ML INJ IV PRN (18:00)
[2024-01-25] MEDS ORDERED: GUAIFENESIN 200MG/10ML SUGAR FREE UDC PO PRN (18:00)
[2024-01-25] MEDS ORDERED: IPRATROPIUM/ALBUTEROL 0.5-3(2.5)MG/3ML NEB HHN PRN (18:00)
[2024-01-25] MEDS ORDERED: ACETAMINOPHEN 325MG TABLET PO PRN (18:00)
[2024-01-25] MEDS: CLOPIDOGREL 75MG TABLET PO ONE (18:21)
[2024-01-25] MEDS: ASPIRIN 325MG EC TABLET PO ONE (18:21)
[2024-01-25 22:00] VITALS: BP 141/56; PULSE 88; RESP 18; TEMP 36.72516; O2SAT 96
[2024-01-25] MEDS: ACETAMINOPHEN 325MG TABLET PO PRN (22:15)
[2024-01-25] MEDS: ATORVASTATIN CALCIUM 20MG TABLET PO SCH (22:21)
[2024-01-25] MEDS: DILTIAZEM HCL 300MG CAPSULE SR 24HR PO SCH (23:07)
[2024-01-25 23:32] LABS: CREATINE KINASE 58 IU/L (34-145)
[2024-01-25 23:56] LABS: TROPONIN I HIGH SENSITIVITY 108 ng/L (3.0-34)
[2024-01-26] VITALS (7 sets, daily range): BP systolic 102–145; BP diastolic 57–74; PULSE 72–99; RESP 18–20; TEMP 36.114–36.696; O2SAT 96–100
[2024-01-26] MEDS ORDERED: TOPUD MT (07:00)
[2024-01-26] MEDS ORDERED: ALLO100T MT (07:00)
[2024-01-26] MEDS ORDERED: AMLO10TA80 MT (07:00)
[2024-01-26] MEDS ORDERED: CALC0.253 MT (07:01)
[2024-01-26] MEDS ORDERED: CLON0.2T MT (07:01)
[2024-01-26] MEDS ORDERED: DOCU250C69 MT (07:02)
[2024-01-26] MEDS ORDERED: DILT300C52 MT (07:02)
[2024-01-26] MEDS ORDERED: FERR325T6 MT (07:04)
[2024-01-26] MEDS ORDERED: ERGO1250 (07:04)
[2024-01-26] MEDS ORDERED: FURO40TA5 MT (07:04)
[2024-01-26] MEDS ORDERED: GLIP5TAB22 MT (07:05)
[2024-01-26] MEDS ORDERED: LEVO25TA7 MT (07:06)
[2024-01-26] MEDS ORDERED: METO25TA6 MT (07:06)
[2024-01-26] MEDS ORDERED: PANT40TA51 PO ×2 (07:07→19:42)
[2024-01-26 07:19] LABS: CALCIUM 8.7 mg/dL (8.7-10.4); POTASSIUM 3.9 mEq/L (3.5-5.1)
[2024-01-26 07:24] LABS: ALBUMIN 3.4 g/dL (3.2-4.8); T4 FREE 1.43 ng/dL (0.89-1.76); THYROID STIMULATING HORMONE 5.8 uIU/mL (0.55-4.78)
[2024-01-26 07:29] LABS: CREATINE KINASE 29 IU/L (34-145)
[2024-01-26 07:44] LABS: TROPONIN I HIGH SENSITIVITY 121 ng/L (3.0-34)
[2024-01-26 08:27] LABS: HEMATOCRIT. 28.1 % (36.0-48.0); HEMOGLOBIN. 9.1 g/dL (12.0-16.0); MEAN CORPUSCULAR HEMOGLOBIN 31.8 pg (28.0-32.0); MEAN CORPUSCULAR HGB CONC 32.4 g/dL (31.0-37.0); MEAN CORPUSCULAR VOLUME 98.3 fL (81.0-99.0); MEAN PLATELET VOLUME 10.6 fl (7.4-10.4); PLATELET 161 x1000/uL (130-400); RED BLOOD CELL COUNT 2.86 mill/uL (4.2-5.4); RED CELL DISTRIBUTION WIDTH 16.5 % (11.6-14.6); WHITE BLOOD COUNT 17.1 x1000/uL (4.5-11.0)
[2024-01-26 08:39] LABS: DIFFERENTIAL COMMENT 1
[2024-01-26] MEDS ORDERED: AMLODIPINE 10MG TABLET PO SCH (09:00)
[2024-01-26] MEDS: FUROSEMIDE 40MG/4ML VIAL IVP SCH ×2 (11:00→17:45)
[2024-01-26] MEDS: ALLOPURINOL 100 MG TABLET PO SCH (11:00)
[2024-01-26] MEDS: APIXABAN 5 MG TABLET PO SCH (11:00)
[2024-01-26] MEDS: AMLODIPINE 10MG TABLET PO SCH (11:00)
[2024-01-26] MEDS: FERROUS SULFATE 325MG TABLET PO SCH ×2 (11:01→17:41)
[2024-01-26] MEDS: LEVOTHYROXINE SODIUM 25MCG TABLET PO SCH (11:01)
[2024-01-26] MEDS: CLONIDINE 0.2MG TABLET PO SCH (11:01)
[2024-01-26] MEDS: DOCUSATE SODIUM 100MG CAPSULE PO PRN (11:37)
[2024-01-26] MEDS ORDERED: FUROSEMIDE 40MG/4ML VIAL IVP SCH (12:00)
[2024-01-26] MEDS ORDERED: NALOXONE HCL 0.4MG/ML VIAL IV PRN (17:15)
[2024-01-26] MEDS: TRAMADOL 50MG TABLET PO PRN (17:41)
[2024-01-26] MEDS ORDERED: DOCU250C14 PO (19:41)
[2024-01-26] MEDS ORDERED: ERGO1250 PO (19:47)
[2024-01-26] MEDS ORDERED: CALC0.5C7 PO (19:47)
[2024-01-26] MEDS ORDERED: DILT360C51 PO (19:50)
[2024-01-26] MEDS ORDERED: GLIP5TAB22 PO (21:00)
[2024-01-26] MEDS ORDERED: FERR-63 PO (21:01)
[2024-01-26] MEDS ORDERED: LEVO25TA7 PO (21:04)
[2024-01-26] MEDS ORDERED: ATOR40TA70 PO (21:05)
[2024-01-26 22:56] LABS: ANISOCYTOSIS 1+; PLATELET ESTIMATE NORMAL
[2024-01-27] VITALS: BP 109/51; PULSE 90; RESP 20; TEMP 36.22512; O2SAT 93
[2024-01-27 04:00] VITALS: BP 110/49; PULSE 78; RESP 20; TEMP 36.50292; O2SAT 100
[2024-01-27] MEDS: LEVOTHYROXINE SODIUM 25MCG TABLET PO SCH (07:34)
[2024-01-27] MEDS: FUROSEMIDE 20MG/2ML VIAL IVP SCH (07:35)
[2024-01-27 08:00] VITALS: BP 120/68; PULSE 78; RESP 20; TEMP 35.8362; O2SAT 98
[2024-01-27 11:55] VITALS: BP 124/61; PULSE 92; RESP 20; TEMP 36.55848; O2SAT 99
[2024-01-27 12:52] LABS: BASOPHILS % 0.3 % (0.0-2.0); CALCIUM 9.5 mg/dL (8.7-10.4); EOSINOPHILS % 1.2 % (0.0-5.0); HEMATOCRIT. 26.9 % (36.0-48.0); HEMOGLOBIN. 8.6 g/dL (12.0-16.0); LYMPHOCYTES % 12.1 % (20.0-50.0); MEAN CORPUSCULAR HEMOGLOBIN 31.8 pg (28.0-32.0); MEAN CORPUSCULAR HGB CONC 32.1 g/dL (31.0-37.0); MEAN CORPUSCULAR VOLUME 99.1 fL (81.0-99.0); MEAN PLATELET VOLUME 10.1 fl (7.4-10.4); MONOCYTES % 13.4 % (2.0-8.0); PLATELET 139 x1000/uL (130-400); RED BLOOD CELL COUNT 2.72 mill/uL (4.2-5.4); RED CELL DISTRIBUTION WIDTH 16.7 % (11.6-14.6); WHITE BLOOD COUNT 8.8 x1000/uL (4.5-11.0)
[2024-01-27 14:32] LABS: ALANINE AMINOTRANSFERASE 20 IU/L (10-49); ALBUMIN 3.7 g/dL (3.2-4.8); ASPARTATE AMINOTRANSFERASE 14 IU/L (<34); BILIRUBIN DIRECT 0.4 mg/dL (<=3.0); BILIRUBIN TOTAL 0.9 mg/dL (0.1-1.0); PROTEIN TOTAL 6.1 g/dL (6.0-8.3)
[2024-01-27 14:53] LABS: CLARITY URINE CLEAR (CLEAR); COLOR URINE YELLOW (YELLOW); GLUCOSE URINE NEGATIVE (NEGATIVE); KETONES URINE NEGATIVE (NEGATIVE); LEUKOCYTE ESTERASE URINE TRACE (NEGATIVE); NITRITE URINE NEGATIVE (NEGATIVE); OCCULT BLOOD URINE 1+ (NEGATIVE); PROTEIN URINE NEGATIVE (NEGATIVE); SPECIFIC GRAVITY URINE 1.013 (1.005-1.030)
[2024-01-27 15:25] LABS: SQUAMOUS EPITHELIAL CELL URINE 2+ /lpf (RARE/1+)
[2024-01-27 15:26] LABS: BACTERIA URINE TRACE; RBC URINE 0-2 /hpf (0-2); WBC URINE 0-2 /hpf (0-2)
[2024-01-27 16:00] VITALS: BP 132/65; PULSE 90; RESP 19; TEMP 36.6696; O2SAT 99
[2024-01-27 20:00] VITALS: BP 114/50; PULSE 98; RESP 18; TEMP 36.33624; O2SAT 93
[2024-01-28] VITALS: BP 129/51; PULSE 80; RESP 16; TEMP 36.61404; O2SAT 100
[2024-01-28] MEDS: POLYETHYLENE GLYCOL 3350 (17GM) 1 DOSE PACK PO NR (06:47)
[2024-01-28 08:00] VITALS: BP 130/67; PULSE 120; RESP 21; TEMP 36.61404; O2SAT 100
[2024-01-28] MEDS: FLUTICASONE PROPIONATE 50MCG/SPRAY BOTTLE BOTHNSTRLS SCH (09:03)
[2024-01-28 11:37] LABS: EOSINOPHILS % 1.7 % (0.0-5.0); HEMATOCRIT. 25.6 % (36.0-48.0); HEMOGLOBIN. 8.5 g/dL (12.0-16.0); LYMPHOCYTES % 11.9 % (20.0-50.0); MEAN CORPUSCULAR HEMOGLOBIN 32.4 pg (28.0-32.0); MEAN CORPUSCULAR VOLUME 98.1 fL (81.0-99.0); MEAN PLATELET VOLUME 9.9 fl (7.4-10.4); MONOCYTES % 10.4 % (2.0-8.0); PLATELET 153 x1000/uL (130-400); RED BLOOD CELL COUNT 2.61 mill/uL (4.2-5.4); RED CELL DISTRIBUTION WIDTH 16.3 % (11.6-14.6); WHITE BLOOD COUNT 6.7 x1000/uL (4.5-11.0)
[2024-01-28 11:43] LABS: CALCIUM 9.2 mg/dL (8.7-10.4)
[2024-01-28 11:48] LABS: CREATININE 2.1 mg/dL (0.6-1.0)
[2024-01-28 12:00] VITALS: BP 136/60; PULSE 118; RESP 20; TEMP 36.61404; O2SAT 100
[2024-01-28] MEDS: DIGOXIN 125MCG TABLET PO SCH (14:22)
[2024-01-28 16:00] VITALS: BP 124/68; PULSE 120; RESP 18; TEMP 36.3918; O2SAT 99
[2024-01-28] MEDS: CEFTRIAXONE 1GM/50ML 50 ML IV NR (17:28)
[2024-01-28 20:00] VITALS: BP 112/70; PULSE 119; RESP 20; TEMP 36.50292; O2SAT 98
[2024-01-28 23:53] VITALS: PULSE 74; RESP 18; O2SAT 97
[2024-01-29] VITALS (10 sets, daily range): BP systolic 102–138; BP diastolic 51–76; PULSE 73–119; RESP 18–20; TEMP 36.3918–36.61404; O2SAT 95–100
[2024-01-29] MEDS: BUDESONIDE 0.5MG/2ML NEB HHN SCH (08:26)
[2024-01-29] MEDS: IPRATROPIUM/ALBUTEROL 0.5-3(2.5)MG/3ML NEB HHN SCH (09:05)
[2024-01-29 12:05] LABS: IRON 22 ug/dL (50-170)
[2024-01-29 12:08] LABS: TOTAL IRON BINDING CAPACITY 457 ug/dl (250-425)
[2024-01-29 12:16] LABS: FERRITIN 108 ng/mL (10-291)
[2024-01-29 12:17] LABS: VITAMIN B12 SERUM 599 pg/mL (211-911)
[2024-01-29] MEDS ORDERED: DIGO125T80 MT ×2 (13:01→18:17)
== END 2024-01-29 19:45 | disposition home health service (06) | DRG 280 ==
LOC: ER 15:38 → EDBEDREQ 16:39 → 5WST 20:54 → 8WST 01-26 03:14
PROVIDERS: ADMIT Hospitalist; ATTEND Hospitalist
DX: I13.0 Hypertensive heart and chronic kidney disease with heart failure and stage 1 through stage 4 chronic kidney disease, or unspecified chronic kidney disease (principal); I50.23 Acute on chronic systolic (congestive) heart failure; I21.A1 Myocardial infarction type 2; N17.9 Acute kidney failure, unspecified; Z68.41 Body mass index [BMI] 40.0-44.9, adult; I48.4 Atypical atrial flutter; N18.4 Chronic kidney disease, stage 4 (severe); N39.0 Urinary tract infection, site not specified; E78.5 Hyperlipidemia, unspecified; D64.9 Anemia, unspecified; E03.9 Hypothyroidism, unspecified; E11.22 Type 2 diabetes mellitus with diabetic chronic kidney disease; E66.01 Morbid (severe) obesity due to excess calories; M10.9 Gout, unspecified; I25.10 Atherosclerotic heart disease of native coronary artery without angina pectoris; I48.91 Unspecified atrial fibrillation; I69.30 Unspecified sequelae of cerebral infarction; Z79.01 Long term (current) use of anticoagulants; Z79.84 Long term (current) use of oral hypoglycemic drugs; Z79.899 Other long term (current) drug therapy; Z95.818 Presence of other cardiac implants and grafts
CPT/HCPCS: 36415; 71045; 80048; 80061; 80076; 81003; 82040; 82550; 82607; 82728; 82746; 83540; 83550; 83605; 83735; 83880; 84145; 84439; 84443; 84484; 85025; 93005; 94640; 99291; J0696; J1940; J2270; J7626

== ENCOUNTER 2024-05-03 16:06 | Inpatient (IN) | payer MEDICARE, MEDICAID ==
[~2024-05-03] VITALS: Ht 170.2 cm; Wt 93.4 kg
[~2024-05-03 16:06] MED LIST changes: -ACET-2708 PO; -ATOR40TA70 MT; +ATOR40TA70 PO; +CALC0.5C7 PO; +DIGO125T80 MT; -DILT300C53 PO; +DILT360C51 PO; +DOCU250C14 PO; +ERGO1250 PO; -FURO-151 MT; -GLIP2.5T3 PO; +GLIP5TAB22 PO; -METO-539 MT; +METO25TA6 MT; +PANT40TA51 PO; -SPIR25TA6 PO; -[UNRECOGNIZED DRUG - CODE]
[2024-05-03 16:10] VITALS: BP 158/61; PULSE 66; RESP 20; TEMP 36.50292; O2SAT 100
[2024-05-03] MEDS ORDERED: ACETAMINOPHEN 325MG TABLET PO PRN (17:45)
[2024-05-03] MEDS ORDERED: DEXTROSE 50% WATER 50ML SYRINGE IV PRN (17:45)
[2024-05-03] MEDS ORDERED: GUAIFENESIN 200MG/10ML SUGAR FREE UDC PO PRN (17:45)
[2024-05-03] MEDS ORDERED: ONDANSETRON HCL 4MG/2ML INJ IV PRN (17:45)
[2024-05-03] MEDS ORDERED: BENZONATATE 100MG CAPSULE PO PRN (17:45)
[2024-05-03] MEDS ORDERED: MAGNESIUM/ALUMINUM HYDROXIDE/SIMETHICONE 30ML UDC PO PRN (17:45)
[2024-05-03] MEDS ORDERED: IPRATROPIUM/ALBUTEROL 0.5-3(2.5)MG/3ML NEB HHN PRN (17:45)
[2024-05-03] MEDS ORDERED: SIMETHICONE 80MG TABLET CHEW PO PRN (17:45)
[2024-05-03] MEDS ORDERED: CLONIDINE 0.1MG TABLET PO PRN (17:45)
[2024-05-03 18:18] VITALS: BP 158/61; PULSE 66; RESP 20; TEMP 36.5292
[2024-05-03 20:00] VITALS: BP 146/73; PULSE 82; RESP 18; TEMP 37.28076; O2SAT 100
[2024-05-03] MEDS ORDERED: DOCUSATE SODIUM 100MG CAPSULE PO PRN (20:00)
[2024-05-03] MEDS: INSULIN LISPRO 100 UNITS/ML SUBCUT SCH (21:00)
[2024-05-03] MEDS: METOPROLOL TARTRATE 25MG TABLET PO SCH (21:50)
[2024-05-03] MEDS: FUROSEMIDE 40MG/4ML VIAL IVP SCH (21:50)
[2024-05-03] MEDS: GUAIFENESIN 600MG ER TABLET PO SCH (21:51)
[2024-05-03] MEDS: APIXABAN 5 MG TABLET PO SCH (21:51)
[2024-05-03] MEDS: BLOOD SUGAR DIAGNOSTIC STRIP TEST SCH (21:52)
[2024-05-04] MEDS: LEVOTHYROXINE SODIUM 25MCG TABLET PO SCH (07:03)
[2024-05-04 08:00] VITALS: BP 135/63; PULSE 80; RESP 18; TEMP 36.50292; O2SAT 100
[2024-05-04 08:16] LABS: CHLORIDE 104 mEq/L (98-107); POTASSIUM 4.4 mEq/L (3.5-5.1); SODIUM 142 mEq/L (136-145)
[2024-05-04 08:17] LABS: CARBON DIOXIDE 26 mEq/L (21-32)
[2024-05-04 08:22] LABS: CREATININE 1.8 mg/dL (0.6-1.0)
[2024-05-04 08:23] LABS: GLUCOSE 109 mg/dL (70-105); UREA NITROGEN BLOOD 23 mg/dL (9-23)
[2024-05-04 08:24] LABS: ALANINE AMINOTRANSFERASE 43 IU/L (10-49); ALBUMIN 3.9 g/dL (3.2-4.8); ASPARTATE AMINOTRANSFERASE 51 IU/L (<34)
[2024-05-04 08:25] LABS: BILIRUBIN TOTAL 0.8 mg/dL (0.1-1.0); EOSINOPHILS % 3.9 % (0.0-5.0); HEMATOCRIT. 31.4 % (36.0-48.0); HEMOGLOBIN. 10.2 g/dL (12.0-16.0); LYMPHOCYTES % 23.8 % (20.0-50.0); MEAN CORPUSCULAR HEMOGLOBIN 28.7 pg (28.0-32.0); MEAN CORPUSCULAR HGB CONC 32.5 g/dL (31.0-37.0); MEAN CORPUSCULAR VOLUME 88.2 fL (81.0-99.0); MEAN PLATELET VOLUME 8.5 fl (7.4-10.4); MONOCYTES % 11.4 % (2.0-8.0); NEUTROPHILS % 59.9 % (40.0-76.0); PLATELET 306 x1000/uL (130-400); PREALBUMIN 12.9 mg/dl (10.0-40.0); PROTEIN TOTAL 7.5 g/dL (6.0-8.3); RED BLOOD CELL COUNT 3.55 mill/uL (4.2-5.4); RED CELL DISTRIBUTION WIDTH 23.9 % (11.6-14.6); WHITE BLOOD COUNT 6.9 x1000/uL (4.5-11.0)
[2024-05-04 08:40] LABS: DIFFERENTIAL COMMENT 1
[2024-05-04] MEDS: MEGESTROL ACETATE 400 MG/10 ML UDC PO SCH (10:03)
[2024-05-04] MEDS: AMLODIPINE 10MG TABLET PO SCH (10:05)
[2024-05-04] MEDS: FERROUS SULFATE 325MG TABLET PO SCH (10:06)
[2024-05-04] MEDS: DILTIAZEM HCL 300MG CAPSULE SR 24HR PO SCH (10:14)
[2024-05-04 12:00] VITALS: BP 130/60; PULSE 80; RESP 18; TEMP 36.50292
[2024-05-04] MEDS: ACETAMINOPHEN 325MG TABLET PO PRN (12:27)
[2024-05-04] MEDS: IPRATROPIUM/ALBUTEROL 0.5-3(2.5)MG/3ML NEB HHN SCH (12:40)
[2024-05-04 16:00] VITALS: BP 133/66; PULSE 85; RESP 18; TEMP 36.16956
[2024-05-04] MEDS: DIGOXIN 125MCG TABLET PO SCH (18:00)
[2024-05-04] MEDS: LACTULOSE 20G/30ML UDC PO SCH (18:00)
[2024-05-04 20:00] VITALS: BP 156/75; PULSE 81; RESP 19; TEMP 35.66952; O2SAT 100
[2024-05-05 08:00] VITALS: BP 141/68; PULSE 75; RESP 20; TEMP 36.50292; O2SAT 97
[2024-05-05] MEDS: HYDROCODONE/ACETAMINOPHEN 10/325MG TABLET PO PRN (10:27)
[2024-05-05] MEDS ORDERED: NALOXONE HCL 0.4MG/ML VIAL IV PRN (10:30)
[2024-05-05 12:24] LABS: BASOPHILS % 1.9 % (0.0-2.0); EOSINOPHILS % 3.9 % (0.0-5.0); HEMATOCRIT. 33.7 % (36.0-48.0); HEMOGLOBIN. 10.9 g/dL (12.0-16.0); LYMPHOCYTES % 21.1 % (20.0-50.0); MEAN CORPUSCULAR HEMOGLOBIN 28.4 pg (28.0-32.0); MEAN CORPUSCULAR HGB CONC 32.5 g/dL (31.0-37.0); MEAN CORPUSCULAR VOLUME 87.3 fL (81.0-99.0); MEAN PLATELET VOLUME 8.5 fl (7.4-10.4); MONOCYTES % 11.9 % (2.0-8.0); NEUTROPHILS % 61.2 % (40.0-76.0); PLATELET 337 x1000/uL (130-400); RED BLOOD CELL COUNT 3.86 mill/uL (4.2-5.4); RED CELL DISTRIBUTION WIDTH 24.4 % (11.6-14.6); WHITE BLOOD COUNT 6.7 x1000/uL (4.5-11.0)
[2024-05-05 12:40] VITALS: PULSE 85; RESP 22; O2SAT 95
[2024-05-05 12:42] LABS: DIFFERENTIAL COMMENT 1
[2024-05-05 12:46] LABS: CALCIUM 10.3 mg/dL (8.7-10.4)
[2024-05-05 20:00] VITALS: BP 127/64; PULSE 69; RESP 17; TEMP 36.44736; O2SAT 98
[2024-05-06 08:00] VITALS: BP 140/38; PULSE 80; RESP 20; TEMP 36.55848; O2SAT 98
[2024-05-06 20:00] VITALS: BP 93/66; PULSE 80; RESP 18; TEMP 36.114; O2SAT 97
[2024-05-07 10:04] VITALS: PULSE 76; RESP 20
[2024-05-07 12:10] LABS: BASOPHILS % 1.3 % (0.0-2.0); EOSINOPHILS % 4.1 % (0.0-5.0); HEMATOCRIT. 31.1 % (36.0-48.0); HEMOGLOBIN. 9.8 g/dL (12.0-16.0); MEAN CORPUSCULAR HEMOGLOBIN 28.2 pg (28.0-32.0); MEAN CORPUSCULAR HGB CONC 31.5 g/dL (31.0-37.0); MEAN CORPUSCULAR VOLUME 89.7 fL (81.0-99.0); MONOCYTES % 11.4 % (2.0-8.0); NEUTROPHILS % 56.2 % (40.0-76.0); PLATELET 246 x1000/uL (130-400); RED BLOOD CELL COUNT 3.46 mill/uL (4.2-5.4); RED CELL DISTRIBUTION WIDTH 24.9 % (11.6-14.6); WHITE BLOOD COUNT 5.9 x1000/uL (4.5-11.0)
[2024-05-07 12:20] LABS: DIFFERENTIAL COMMENT 1
[2024-05-07 12:21] LABS: ADD RBC MORPHOLOGY YES
[2024-05-07 12:49] LABS: POTASSIUM 4.1 mEq/L (3.5-5.1)
[2024-05-07 12:51] LABS: CALCIUM 9.7 mg/dL (8.7-10.4)
[2024-05-07 12:56] LABS: CREATININE 1.9 mg/dL (0.6-1.0)
[2024-05-07 14:06] LABS: ANISOCYTOSIS 3+; HYPOCHROMASIA 1+; PLATELET ESTIMATE NORMAL
[2024-05-07 14:07] LABS: TARGET CELLS FEW
[2024-05-07 15:18] VITALS: PULSE 74; RESP 20
[2024-05-07 20:00] VITALS: BP 130/77; PULSE 80; RESP 20; TEMP 36.28068; O2SAT 98
[2024-05-07 21:20] VITALS: PULSE 94; RESP 18; O2SAT 97
[2024-05-08 08:00] VITALS: BP 146/71; PULSE 88; RESP 20; TEMP 36.6696; O2SAT 99
[2024-05-08 08:26] LABS: BASOPHILS % 1.5 % (0.0-2.0); HEMATOCRIT. 29.1 % (36.0-48.0); HEMOGLOBIN. 9.5 g/dL (12.0-16.0); LYMPHOCYTES % 27.2 % (20.0-50.0); MEAN CORPUSCULAR HEMOGLOBIN 28.2 pg (28.0-32.0); MEAN CORPUSCULAR HGB CONC 32.8 g/dL (31.0-37.0); MEAN PLATELET VOLUME 9.7 fl (7.4-10.4); MONOCYTES % 12.2 % (2.0-8.0); NEUTROPHILS % 56.1 % (40.0-76.0); PLATELET 264 x1000/uL (130-400); RED BLOOD CELL COUNT 3.38 mill/uL (4.2-5.4); RED CELL DISTRIBUTION WIDTH 25.4 % (11.6-14.6); WHITE BLOOD COUNT 6.3 x1000/uL (4.5-11.0)
[2024-05-08 08:32] LABS: CALCIUM 9.7 mg/dL (8.7-10.4)
[2024-05-08 08:37] LABS: CREATININE 1.8 mg/dL (0.6-1.0)
[2024-05-08 08:41] LABS: DIFFERENTIAL COMMENT 1
[2024-05-08 09:21] VITALS: PULSE 91; RESP 18; O2SAT 98
[2024-05-08 20:00] VITALS: BP 143/64; PULSE 74; RESP 18; TEMP 36.72516; O2SAT 97
[2024-05-09 08:00] VITALS: BP 136/76; PULSE 95; RESP 20; TEMP 36.3918; O2SAT 95
[2024-05-09 12:00] VITALS: BP 135/75; PULSE 96; RESP 19; TEMP 36.3918; O2SAT 97
[2024-05-09] MEDS: ERGOCALCIFEROL 50000UNITS CAPSULE PO SCH (18:02)
[2024-05-09 20:00] VITALS: BP 135/64; PULSE 72; RESP 17; TEMP 36.55848; O2SAT 98
[2024-05-09 21:20] VITALS: PULSE 79; RESP 22; O2SAT 98
[2024-05-10 08:00] VITALS: BP 130/60; PULSE 75; RESP 18; TEMP 36.114; O2SAT 99
[2024-05-10] MEDS: TRAMADOL HCL/ACETAMINOPHEN 37.5/325MG TABLET PO PRN (11:34)
[2024-05-10 20:00] VITALS: BP 125/56; PULSE 74; RESP 18; TEMP 36.61404; O2SAT 95
[2024-05-11 08:00] VITALS: BP 152/66; PULSE 69; RESP 20; TEMP 36.114; O2SAT 98
[2024-05-11] MEDS ORDERED: FERR-63 PO (18:49)
[2024-05-11] MEDS ORDERED: CHOL100046 PO (19:09)
[2024-05-11] MEDS ORDERED: ERGO1250 PO (19:09)
[2024-05-11] MEDS ORDERED: TRAM-534 PO (19:09)
[2024-05-11] MEDS ORDERED: FURO40TA5 PO (19:12)
[2024-05-11 20:00] VITALS: BP 133/59; PULSE 70; RESP 18; TEMP 37.11408; O2SAT 99
[2024-05-12 07:30] LABS: CARBON DIOXIDE 27 mEq/L (21-32); CHLORIDE 104 mEq/L (98-107); POTASSIUM 3.9 mEq/L (3.5-5.1); SODIUM 140 mEq/L (136-145)
[2024-05-12 07:32] LABS: CALCIUM 9.3 mg/dL (8.7-10.4)
[2024-05-12 07:36] LABS: CREATININE 2.3 mg/dL (0.6-1.0); GLUCOSE 97 mg/dL (70-105)
[2024-05-12 07:37] LABS: UREA NITROGEN BLOOD 30 mg/dL (9-23)
[2024-05-12 07:56] LABS: BASOPHILS % 3.1 % (0.0-2.0); EOSINOPHILS % 2.8 % (0.0-5.0); HEMATOCRIT. 26.8 % (36.0-48.0); HEMOGLOBIN. 8.8 g/dL (12.0-16.0); LYMPHOCYTES % 19.5 % (20.0-50.0); MEAN CORPUSCULAR HEMOGLOBIN 29.2 pg (28.0-32.0); MEAN CORPUSCULAR HGB CONC 33.1 g/dL (31.0-37.0); MEAN CORPUSCULAR VOLUME 88.2 fL (81.0-99.0); MEAN PLATELET VOLUME 9.7 fl (7.4-10.4); MONOCYTES % 12.5 % (2.0-8.0); NEUTROPHILS % 62.1 % (40.0-76.0); PLATELET 214 x1000/uL (130-400); RED BLOOD CELL COUNT 3.03 mill/uL (4.2-5.4); RED CELL DISTRIBUTION WIDTH 25.6 % (11.6-14.6); WHITE BLOOD COUNT 6.2 x1000/uL (4.5-11.0)
[2024-05-12 08:52] VITALS: BP 133/60; PULSE 73; RESP 18; TEMP 36.114; TEMP 36.11400; O2SAT 95
[2024-05-12] MEDS: FUROSEMIDE 40MG TABLET PO SCH (08:54)
[2024-05-12 09:12] LABS: DIFFERENTIAL COMMENT 1
[2024-05-12 09:32] VITALS: BP 133/60; PULSE 73; TEMP 97; O2SAT 95
== END 2024-05-12 11:05 | disposition home health service (06) | DRG 291 ==
PROVIDERS: ADMIT Physical Medicine & Rehabilitation Spinal Cord Injury Medicine; ATTEND Internal Medicine
DX: I13.0 Hypertensive heart and chronic kidney disease with heart failure and stage 1 through stage 4 chronic kidney disease, or unspecified chronic kidney disease (principal); I50.33 Acute on chronic diastolic (congestive) heart failure; I63.9 Cerebral infarction, unspecified; J96.21 Acute and chronic respiratory failure with hypoxia; I69.354 Hemiplegia and hemiparesis following cerebral infarction affecting left non-dominant side; J98.11 Atelectasis; N17.9 Acute kidney failure, unspecified; Z68.42 Body mass index [BMI] 45.0-49.9, adult; F03.93 Unspecified dementia, unspecified severity, with mood disturbance; F33.1 Major depressive disorder, recurrent, moderate; F03.94 Unspecified dementia, unspecified severity, with anxiety; J91.8 Pleural effusion in other conditions classified elsewhere; D50.9 Iron deficiency anemia, unspecified; E03.9 Hypothyroidism, unspecified; E11.22 Type 2 diabetes mellitus with diabetic chronic kidney disease; E11.40 Type 2 diabetes mellitus with diabetic neuropathy, unspecified; E66.9 Obesity, unspecified; E78.5 Hyperlipidemia, unspecified; E83.42 Hypomagnesemia; E87.6 Hypokalemia; G89.29 Other chronic pain; I48.0 Paroxysmal atrial fibrillation; I49.3 Ventricular premature depolarization; K59.00 Constipation, unspecified; M10.9 Gout, unspecified; M54.40 Lumbago with sciatica, unspecified side; E55.9 Vitamin D deficiency, unspecified; F41.1 Generalized anxiety disorder; J44.89 Other specified chronic obstructive pulmonary disease; R53.1 Weakness; K30 Functional dyspepsia; Z60.2 Problems related to living alone; R47.1 Dysarthria and anarthria; N18.9 Chronic kidney disease, unspecified; Z79.01 Long term (current) use of anticoagulants; Z79.4 Long term (current) use of insulin; Z79.84 Long term (current) use of oral hypoglycemic drugs; Z79.899 Other long term (current) drug therapy; Z91.81 History of falling; Z51.89 Encounter for other specified aftercare; Z88.8 Allergy status to other drugs, medicaments and biological substances
CPT/HCPCS: 36415; 71045; 76604; 80048; 80053; 82306; 82962; 83735; 84134; 85025; 92523; 94070; 94618; 94640; 94664; 94760; 97110; 97116; 97162; 97166; 97530; 97535; 98960; A4606; A4663; J1815; J1940

== ENCOUNTER 2025-01-18 10:13 | Inpatient (IN) | payer MEDICARE, MEDICAID ==
[~2025-01-18] VITALS: Ht 170.2 cm; Wt 90.9 kg
[~2025-01-18 10:13] MED LIST changes: +CHOL100046 PO; +CLON0.1T PO; -CLON0.2T PO; -DIGO125T80 MT; +DILT300T10 MT; -DILT360C51 PO; -ERGO1250 PO; +FURO40TA5 PO; +GLIP5TAB22 MT; -GLIP5TAB22 PO
[2025-01-18 10:17] VITALS: O2SAT 97
[2025-01-18] MEDS ORDERED: GLIP5TAB22 PO (11:17)
[2025-01-18] MEDS ORDERED: NITROGLYCERIN 0.4MG TABLET SL SL PRN (11:30)
[2025-01-18 11:33] LABS: BASOPHILS % 2.1 % (0.0-2.0); EOSINOPHILS % 2.9 % (0.0-5.0); HEMATOCRIT. 28.1 % (36.0-48.0); HEMOGLOBIN. 9.3 g/dL (12.0-16.0); LYMPHOCYTES % 25.3 % (20.0-50.0); MEAN PLATELET VOLUME 8.8 fl (7.4-10.4); MONOCYTES % 5.6 % (2.0-8.0); NEUTROPHILS % 64.1 % (40.0-76.0); PLATELET 217 x1000/uL (130-400); RED BLOOD CELL COUNT 3.14 mill/uL (4.2-5.4); RED CELL DISTRIBUTION WIDTH 18.2 % (11.6-14.6)
[2025-01-18] MEDS: FUROSEMIDE 40MG/4ML VIAL IVP NR (11:38)
[2025-01-18 12:05] LABS: CREATININE 1.8 mg/dL (0.6-1.0); UREA NITROGEN BLOOD 17 mg/dL (9-23)
[2025-01-18 12:06] LABS: TROPONIN I HIGH SENSITIVITY 10 ng/L (3.0-34)
[2025-01-18] MEDS ORDERED: ONDANSETRON HCL 4MG/2ML INJ IV PRN (12:30)
[2025-01-18] MEDS ORDERED: ACETAMINOPHEN 325MG TABLET PO PRN (12:30)
[2025-01-18] MEDS ORDERED: CLONIDINE 0.1MG TABLET PO PRN (12:30)
[2025-01-18] MEDS ORDERED: IPRATROPIUM/ALBUTEROL 0.5-3(2.5)MG/3ML NEB HHN PRN (12:30)
[2025-01-18] MEDS: OXYCODONE HCL/ACETAMINOPHEN 5/325MG TABLET PO ONE (12:36)
[2025-01-18 12:52] LABS: CLARITY URINE CLEAR (CLEAR); COLOR URINE YELLOW (YELLOW); GLUCOSE URINE NEGATIVE (NEGATIVE); KETONES URINE NEGATIVE (NEGATIVE); LEUKOCYTE ESTERASE URINE NEGATIVE (NEGATIVE); NITRITE URINE NEGATIVE (NEGATIVE); OCCULT BLOOD URINE NEGATIVE (NEGATIVE); PH URINE 6.5 (4.5-8.0); PROTEIN URINE 1+ (NEGATIVE); SPECIFIC GRAVITY URINE 1.007 (1.005-1.030); UROBILINOGEN URINE 0.2 E.U./dL (0.2-1.0)
[2025-01-18] MEDS ORDERED: ENOXAPARIN 40MG/0.4ML SYR SUBCUT SCH (13:00)
[2025-01-18 13:08] LABS: *AMPHETAMINES SCREEN URINE NEGATIVE (NEGATIVE); *BARBITURATES SCREEN URINE NEGATIVE (NEGATIVE); *BENZODIAZEPINES SCREEN URINE NEGATIVE (NEGATIVE); *COCAINE SCREEN URINE NEGATIVE (NEGATIVE); BACTERIA URINE RARE; METHADONE URINE SCREEN NEGATIVE (NEGATIVE); RBC URINE NONE SEEN /hpf (0-2); SQUAMOUS EPITHELIAL CELL URINE 1+ /lpf (RARE/1+); WBC URINE 0-2 /hpf (0-2); YEAST URINE NONE SEEN
[2025-01-18 13:09] LABS: CANNABINOID URINE SCREEN NEGATIVE (NEGATIVE); ECSTASY MDMA SCREEN URINE NEGATIVE (NEGATIVE); OPIATES URINE SCREEN NEGATIVE (NEGATIVE); PHENCYCLIDINE URINE SCREEN NEGATIVE (NEGATIVE)
[2025-01-18 13:19] VITALS: BP 143/70; PULSE 17; RESP 17; TEMP 36.2; O2SAT 99
[2025-01-18] MEDS: ENOXAPARIN 100MG/ML SYR SUBCUT SCH (14:00)
[2025-01-18 16:00] VITALS: BP 132/64; PULSE 18; RESP 18; TEMP 36.3; O2SAT 100
[2025-01-18 16:56] VITALS: BP 143/70; PULSE 67; RESP 17; TEMP 36.2512
[2025-01-18] MEDS: ACETAMINOPHEN 325MG TABLET PO PRN (18:01)
[2025-01-18] MEDS: NITROGLYCERIN 0.4MG TABLET SL SL PRN (19:15)
[2025-01-18 20:00] VITALS: BP 120/58; PULSE 58; RESP 17; TEMP 36.4; O2SAT 96
[2025-01-18] MEDS ORDERED: OXYCODONE HCL/ACETAMINOPHEN 5/325MG TABLET PO PRN (21:30)
[2025-01-18] MEDS: FUROSEMIDE 40MG/4ML VIAL IV SCH (21:42)
[2025-01-18] MEDS: HYDROCODONE/ACETAMINOPHEN 5/325MG TABLET PO PRN (21:42)
[2025-01-18] MEDS ORDERED: NALOXONE HCL 0.4MG/ML VIAL IV PRN (21:45)
[2025-01-19] VITALS (7 sets, daily range): BP systolic 123–158; BP diastolic 62–97; PULSE 56–78; RESP 17–18; TEMP 36.2–36.6; O2SAT 95–99
[2025-01-19] MEDS: APIXABAN 5 MG TABLET PO SCH (10:43)
[2025-01-19 13:57] LABS: BASOPHILS % 1.4 % (0.0-2.0); EOSINOPHILS % 3.9 % (0.0-5.0); HEMATOCRIT. 25.7 % (36.0-48.0); HEMOGLOBIN. 8.6 g/dL (12.0-16.0); LYMPHOCYTES % 25.8 % (20.0-50.0); MEAN PLATELET VOLUME 8.4 fl (7.4-10.4); MONOCYTES % 7.9 % (2.0-8.0); NEUTROPHILS % 61.0 % (40.0-76.0); PLATELET 192 x1000/uL (130-400); RED BLOOD CELL COUNT 2.87 mill/uL (4.2-5.4); RED CELL DISTRIBUTION WIDTH 17.5 % (11.6-14.6)
[2025-01-19 14:01] LABS: INR 1.2
[2025-01-19 14:09] LABS: CREATININE 2.1 mg/dL (0.6-1.0); UREA NITROGEN BLOOD 22 mg/dL (9-23)
[2025-01-19 14:11] LABS: PHOSPHORUS 4.2 mg/dL (2.5-4.9)
[2025-01-19 14:14] LABS: T4 FREE 1.33 ng/dL (0.89-1.76)
[2025-01-20] VITALS: BP 147/72; PULSE 60; RESP 19; TEMP 36.7; O2SAT 98
[2025-01-20 04:00] VITALS: BP 134/72; PULSE 58; RESP 18; TEMP 36.3; O2SAT 96
[2025-01-20 08:30] VITALS: BP 118/77; PULSE 66; RESP 18; TEMP 36.1; O2SAT 96
[2025-01-20] MEDS: FUROSEMIDE 40MG/4ML VIAL IVP SCH (08:54)
[2025-01-20 10:42] LABS: BASOPHILS % 1.5 % (0.0-2.0); EOSINOPHILS % 4.2 % (0.0-5.0); HEMATOCRIT. 28.6 % (36.0-48.0); HEMOGLOBIN. 9.6 g/dL (12.0-16.0); LYMPHOCYTES % 31.2 % (20.0-50.0); MEAN PLATELET VOLUME 8.5 fl (7.4-10.4); MONOCYTES % 9.2 % (2.0-8.0); NEUTROPHILS % 53.9 % (40.0-76.0); PLATELET 205 x1000/uL (130-400); RED BLOOD CELL COUNT 3.20 mill/uL (4.2-5.4); RED CELL DISTRIBUTION WIDTH 18.2 % (11.6-14.6)
[2025-01-20 10:50] LABS: CREATININE 2.0 mg/dL (0.6-1.0)
[2025-01-20 10:51] LABS: UREA NITROGEN BLOOD 24 mg/dL (9-23)
[2025-01-20 10:53] LABS: PHOSPHORUS 4.1 mg/dL (2.5-4.9)
[2025-01-20] MEDS ORDERED: FURO40TA5 PO (11:00)
[2025-01-20 12:00] VITALS: BP 158/80; PULSE 75; RESP 18; TEMP 36.3; O2SAT 98
[2025-01-20] MEDS: POTASSIUM CHLORIDE 20MEQ TABLET SR PO SCH (15:34)
[2025-01-20 16:00] VITALS: BP 141/60; PULSE 68; RESP 18; TEMP 36.4; O2SAT 98
[2025-01-20 20:00] VITALS: BP 120/48; PULSE 68; RESP 20; TEMP 36.4; O2SAT 97
[2025-01-21] VITALS: BP 110/45; PULSE 65; RESP 18; TEMP 36.7; O2SAT 98
[2025-01-21 04:00] VITALS: BP 133/62; PULSE 68; RESP 20; TEMP 36.6; O2SAT 98
[2025-01-21 08:00] VITALS: BP 152/64; PULSE 61; RESP 20; TEMP 36.6; O2SAT 97
[2025-01-21] MEDS: ISOSORBIDE MONONITRATE 30MG TABLET SR 24HR PO SCH (11:45)
[2025-01-21 12:00] VITALS: BP 128/58; PULSE 70; RESP 20; TEMP 36.4; O2SAT 100
[2025-01-21] MEDS ORDERED: ISOS30TA91 MT (12:54)
[2025-01-21] MEDS ORDERED: FURO80TA3 MT (12:54)
[2025-01-21 13:43] VITALS: BP 128/58; PULSE 70; RESP 20; TEMP 97.5
[2025-01-21] MEDS ORDERED: POTA20LI52 MT (14:31)
[2025-01-21] MEDS ORDERED: ALLOPURINOL 100 MG TABLET PO SCH (21:00)
[2025-01-22] MEDS ORDERED: LEVOTHYROXINE SODIUM 25MCG TABLET PO SCH (07:20)
[2025-01-22] MEDS ORDERED: FUROSEMIDE 40MG TABLET PO SCH ×2 (09:00)
== END 2025-01-21 14:10 | disposition home or self-care (01) | DRG 291 ==
LOC: ER 10:23 → 6WST 12:18 → EDBEDREQTM 12:27 → EDBEDREQ 12:27 → ENRESERV 12:38
PROVIDERS: ADMIT Student in an Organized Health Care Education/Training Program; ATTEND Student in an Organized Health Care Education/Training Program
DX: I13.0 Hypertensive heart and chronic kidney disease with heart failure and stage 1 through stage 4 chronic kidney disease, or unspecified chronic kidney disease (principal); I50.43 Acute on chronic combined systolic (congestive) and diastolic (congestive) heart failure; N17.0 Acute kidney failure with tubular necrosis; I48.0 Paroxysmal atrial fibrillation; D64.9 Anemia, unspecified; E11.22 Type 2 diabetes mellitus with diabetic chronic kidney disease; E78.00 Pure hypercholesterolemia, unspecified; N18.9 Chronic kidney disease, unspecified; Z55.6 Problems related to health literacy; Z79.899 Other long term (current) drug therapy; Z86.73 Personal history of transient ischemic attack (TIA), and cerebral infarction without residual deficits; Z88.8 Allergy status to other drugs, medicaments and biological substances
CPT/HCPCS: 36415; 71045; 76770; 80048; 80305; 80320; 81003; 82550; 83735; 83880; 84100; 84439; 84443; 84484; 85025; 93005; 96372; 96374; 99291; A4606; J1650; J1938; G0480